=== PATIENT | female | born 1940 | race Caucasian/White ===

== ENCOUNTER 2020-02-08 09:24 | Inpatient (IN) ==
[2020-02-08] MEDS ORDERED: 0.9 % SODIUM CHLORIDE 500 ML IV ONE (09:44)
--- NOTE | 2020-02-08 09:55 | Emergency Department Note ---
Fall HPI General Chief Complaint: Fall Stated Complaint: fall Time Seen by Provider: 02/08/20 09:35 Source: patient Mode of arrival: ambulatory Limitations: no limitations History of Present Illness HPI Narrative: Narrative: With chief complaint of exquisite right hip pain. Patient mentions she was going to bed last night when she "passed out". She is unsure of the actual events but does tell me she got up before she knew it "I was on the ground". She denies preceding dizziness, shortness of breath, or chest pain prior to falling. Once on the ground she noticed the pain to her hip. She was unable to bear weight. She laid on the ground for several moments and then crawled towards the kitchen. During that time she found a pillow and "went back to sleep for a while" on the floor. She is unsure for how long. However, due to the worsening pain she woke her up around 4 AM. She took 1 of her prescribed muscle relaxers without relief. She was then transported into the hospital for evaluation. Upon arrival, patient complains of significant pain to the right hip with movement. Currently no evidence for pain is mild at 2/10. It is localized to the right hip joint. She has no history of osteoporosis. ROS: Denies systemic illness, fever, sweats, chills. Denies headaches, tinnitus, or vision changes. Denies runny nose, sinus congestion, or cough. Denies shortness of breath. Denies palpitations. Denies abdominal pain, nausea, vomiting, or diarrhea. Denies dysuria, hematuria, urinary frequency, or urinary urgency. Denies generalized or focal weakness. Related Data Home Medications Medication Instructions Recorded Confirmed venlafaxine 150 mg PO DAILY 05/18/16 02/08/20 biotin 10,000 mcg capsule 10,000 mcg PO QDAY 08/23/19 02/08/20 vit 1 cap PO QDAY 08/23/19 02/08/20 C,E,zinc,Az-abpeo-4-lutein-zeaxanthin 250 mg-2.5 mg-0.5 mg capsule albuterol sulfate 90 mcg/actuation 1 inh INHALATION TID PRN g 09/13/19 02/08/20 aerosol inhaler ferrous sulfate 325 mg (65 mg 325 mg PO TID tab 09/13/19 02/08/20 iron) tablet lamotrigine 25 mg tablet 50 mg PO QDAY tab 09/13/19 02/08/20 methocarbamol 750 mg tablet 750 mg PO QID PRN tab 09/13/19 02/08/20 mupirocin 2 % topical ointment 1 applic TOPICAL BID 09/13/19 02/08/20 oxybutynin chloride 5 mg 5 mg PO QHS tab 09/13/19 02/08/20 tablet,extended release 24 hr pantoprazole 40 mg tablet,delayed 40 mg PO QDAY 09/13/19 02/08/20 release pramipexole 1 mg tablet 1 mg PO TID 09/13/19 02/08/20 pregabalin 50 mg capsule 50 mg PO BID 09/13/19 02/08/20 quetiapine 400 mg tablet 400 mg PO QPM tab 09/13/19 02/08/20 vitamin B complex 1 tab PO QDAY 09/13/19 02/08/20 Previous Rx's Medication Instructions Recorded ezetimibe 10 mg tablet 10 mg PO DAILY #90 tab 05/07/19 conjugated estrogens 0.625 mg 0.625 mg PO DAILY #90 tab 07/02/19 tablet omeprazole 40 mg capsule,delayed 40 mg PO QDAY #30 cap 08/23/19 release levothyroxine 50 mcg tablet 50 mcg PO QDAY #90 tab 12/18/19 losartan 50 mg tablet See Rx Instructions .ROUTE 01/04/20 .COMPLEX #90 tablet Allergies Allergy/AdvReac Type Severity Reaction Status Date / Time codeine Allergy Unknown Unknown Verified 08/23/19 14:54 ciprofloxacin AdvReac Intermediate Flushing Verified 08/23/19 14:54 aspirin AdvReac Mild Gastrointestinal Verified 08/23/19 14:54 Upset hydrocodone AdvReac Mild Itching Verified 08/23/19 14:54 Sulfa (Sulfonamide AdvReac Mild Headache Verified 08/23/19 14:54 Antibiotics) Review of Systems ROS ROS Narrative: Narrative: All systems ED: reviewed and negative except as stated. PFSH Narrative Patient History Narrative: Narrative: Medical/Surgical/Family History All Active Problems (Updated 02/08/20 @ 12:10 by Rocky Farias PA-C) Closed fracture of right hip (Acute) Counseling for estrogen replacement therapy (Chronic) CTS (carpal tunnel syndrome) (Chronic) Osteoarthritis (Chronic) Osteopenia (Chronic) Orestes esophagus (Chronic ~2012) Right wrist fracture (Chronic ~08/2012) Fracture of toe of left foot (Chronic ~02/2010) History of encephalitis (Chronic) Hiatal hernia (Chronic) Depression (Chronic) Anxiety (Chronic) GERD (gastroesophageal reflux disease) (Chronic) Headache (Chronic) Encounter for Zostavax administration (Chronic 10/24/14) History of tonsillectomy (Chronic) History of hysterectomy (Chronic) Bursitis, calcaneal (Chronic) Hypertension (Chronic) Hyperlipidemia (Chronic) Knee pain (Chronic) Restless leg syndrome (Chronic) Lumbosacral disc herniation (Chronic) Fracture of right hand (Chronic) SOB (shortness of breath) (Chronic) Anemia (Chronic) Peripheral edema (Chronic) Hyponatremia (Chronic) Osteopenia (Chronic) Osteoporosis (Chronic) Encounter for long-term (current) use of other medications (Chronic) Urinary frequency (Chronic) Atrophic vaginitis (Chronic) Bipolar 2 disorder (Chronic) Hypothyroidism (Chronic) Multifocal motor neuropathy (Chronic) Anemia, pernicious (Chronic) Lumbar back pain with radiculopathy affecting lower extremity (Chronic) Cellulitis (Chronic) Acute diarrhea (Chronic) Abscess of skin or subcutaneous tissue (Chronic) Medical History Abscess of skin or subcutaneous tissue (Chronic) Acute diarrhea (Chronic) Anemia (Chronic) Anemia, pernicious (Chronic) Anxiety (Chronic) Atrophic vaginitis (Chronic) Barretts esophagus (Chronic ~2012) Bipolar 2 disorder (Chronic) Bursitis, calcaneal (Chronic) Cellulitis (Chronic) Counseling for estrogen replacement therapy (Chronic) CTS (carpal tunnel syndrome) (Chronic) Dr Smith Depression (Chronic) Encounter for long-term (current) use of other medications (Chronic) Encounter for Zostavax administration (Chronic 10/24/14) Fracture of right hand (Chronic) Fracture of toe of left foot (Chronic ~02/2010) GERD (gastroesophageal reflux disease) (Chronic) Headache (Chronic) Hiatal hernia (Chronic) History of encephalitis (Chronic) age 5 Hyperlipidemia (Chronic) Hypertension (Chronic) Hyponatremia (Chronic) Hypothyroidism (Chronic) Knee pain (Chronic) Lumbar back pain with radiculopathy affecting lower extremity (Chronic) Lumbosacral disc herniation (Chronic) Multifocal motor neuropathy (Chronic) Osteoarthritis (Chronic) Osteopenia (Chronic) Osteopenia (Chronic) Dexa on 08/02 Osteoporosis (Chronic) Peripheral edema (Chronic) Restless leg syndrome (Chronic) Right wrist fracture (Chronic ~08/2012) SOB (shortness of breath) (Chronic) Urinary frequency (Chronic) Surgical History History of back surgery (Chronic) Lumbar with Dr. Islas History of hysterectomy (Chronic) in the due to heavy bleeding History of tonsillectomy (Chronic) childhood Family History Father Cancer HTN (hypertension) Mother HTN (hypertension) Thyroid disorder Arthritis Social History Smoking Status: Never smoker Exam Narrative Narrative: Narrative: General Limitations: no limitations General appearance: other (Well-developed, well-nourished, 79-year-old female patient laying semirecumbent on the emergency room gurney with her left hip in slight flexion. At this time she appears comfortable. She does wince in pain during hip exam.) Head Head: atraumatic and normocephalic Expanded Head Head physical: Absent raccoon eyes and Buchanan's sign Eye Eye: Present normal appearance, PERRL and EOMI; Absent scleral icterus and conjunctival injection ENT ENT: Present normal oropharynx and mucous membranes dry Neck Neck: Present trachea midline; Absent lymphadenopathy and thyromegaly Chest Chest: Present symmetric chest wall rise Respiratory Respiratory: Present normal lung sounds bilaterally; Absent respiratory distress, wheezes, stridor, accessory muscle use and prolonged expiratory phase Cardiovascular Cardiovascular: Present regular rate and normal rhythm; Absent systolic murmur and diastolic murmur Adbominal Abdominal: Present soft; Absent distention, tenderness, guarding, rebound, rigidity, organomegaly and mass Extremities Extremities: Present normal inspection, tenderness (Tenderness to the anterior and lateral aspect of the right hip joint. No crepitus) and other (Equal chip silo tender strength. Equal push/pull with the feet. Sensation grossly intact light touch subtle areas of the upper and lower extremities.); Absent full ROM (Considerable decreased range of motion of the right hip secondary to worsening pain.), normal capillary refill and pedal edema Back Back: Absent tenderness Neurological Neurological: Present alert and oriented X3 Psychiatric Psychiatric: Present normal affect and normal mood Skin Skin: Present warm, dry and normal color Course Course Course Narrative: Patient is shortened and angulated right lower extremity secondary to fall this morning. We are going to order radiographs of the right hip looking for fracture or abnormality. Because she has a vague proceeding "passing out" we will order some screening laboratory studies. She was on the floor for an extended period of time so we will order a CK looking for rhabdomyolysis. Patient was provided normal saline 500 mL as a bolus. Although she is not in a lot of pain with her leg motionless. We are going to get radiographs of the affected hip so we will premedicate her with morphine 2mg prior to going to radiology. Reevaluation(s) Reevaluation #1: I reviewed the patient's radiographs show a subcapital fracture to the right hip. Knowing this, I reached out to the on-call orthopedic surgeon (Dr. Birmingham) and discussed the case with him. At the time Dr. Birmingham mentioned this is going to need surgical correction is happy to help the patient. He did request that the patient be admitted to the hospitalist service and that he would consult in as the orthopedic surgeon. Time: 10:46 Reevaluation #2: I reviewed the patient's other diagnostics show the following: CBC WBC 10.8, RBC 3.37, hemoglobin 10.5, 32.3, platelets 416. CMP within normal limits. Troponin less than 0.01. After reviewing all the data I reached out to our hospitalist (Dr. Garner) and discussed admissions with him. At this time Dr. Garner has consented to admit the patient to our facility with the understanding that the orthopedic surgeon will consult in to help her repair the hip fracture. I went in and explained this to the patient who verbalized understanding. At this time all further treatment decisions, modalities, and ultimate patient disposition will be carried out by the hospitalist with the orthopedic surgeon in consultation. Time: 12:08 Vital Signs Vital signs: Vital Signs Temperature 98.1 F 02/08/20 09:27 Pulse Rate 83 02/08/20 09:27 Respiratory Rate 16 02/08/20 09:27 Blood Pressure 164/80 02/08/20 09:27 Pulse Oximetry (%) 95 02/08/20 09:27 Temperature 98.1 F 02/08/20 12:15 Pulse Rate 81 02/08/20 12:15 Respiratory Rate 16 02/08/20 12:15 Blood Pressure 170/82 02/08/20 12:15 Pulse Oximetry (%) 93 02/08/20 12:15 MDM MDM Narrative Medical decision making narrative: Narrative: Lab Data Result diagrams: 02/08/20 10:00 02/08/20 10:00 Labs: Lab Results 02/08/20 02/08/20 02/08/20 Range/Units 09:48 10:00 10:00 WBC 10.8 (4.50-11.00) K/mcL RBC 3.37 L (3.59-5.38) M/mcL Hgb 10.5 L (11.2-15.7) g/dL Hct 32.3 L (34.1-44.9) % MCV 95.8 (80.0-100.0) fL MCH 31.2 (26.0-34.0) pg MCHC 32.5 (31.0-36.0) g/dL RDW 20.4 H (11.5-14.5) % Plt Count 416 (140-440) K/mcL MPV 11.3 H (7.4-10.4) fL Gran % 85.2 H (38.0-78.0) % Lymph % (Auto) 7.8 L (15.5-49.0) % O'Brien % (Auto) 5.1 (1.0-12.0) % Eos % (Auto) 1.6 (0.0-7.0) % Baso % (Auto) 0.3 (0.0-2.0) % Gran # 9.24 H (1.80-8.00) K/mcL Lymph # (Auto) 0.84 L (1.50-4.80) K/mcL O'Brien # (Auto) 0.55 (0.10-0.90) K/mcL Eos # (Auto) 0.17 (0.00-0.70) K/mcL Baso # (Auto) 0.03 (0.00-0.30) K/mcL Sodium 135 (133-145) mmol/L Potassium 3.9 (3.3-5.1) mmol/L Chloride 98 (96-108) mmol/L Carbon Dioxide 23 (22-30) mmol/L Anion Gap 14.0 (8-16) BUN 12 (8-23) mg/dl Creatinine 0.8 (0.6-1.1) mg/dl GFR Calculation 71 Glucose 96 (70-105) mg/dL Calcium 9.1 (8.6-10.4) mg/dl Total Bilirubin 0.4 (0.0-1.0) mg/dL AST 23 (0-37) U/l ALT 15 (0-40) U/l Alkaline Phosphatase 91 (39-117) U/L Total Creatine Kinase (24-170) IU/L Troponin T < 0.01 (0-0.03) ng/ml Total Protein 7.3 (5.9-8.4) gm/dL Albumin 3.8 (3.2-5.2) gm/dL Globulin 3.5 (2.2-3.7) gm/dL Albumin/Globulin Ratio 1.1 (1.0-2.3) COVID-19 PCR (NEGATIVE) 02/08/20 02/08/20 Range/Units 10:00 11:20 WBC (4.50-11.00) K/mcL RBC (3.59-5.38) M/mcL Hgb (11.2-15.7) g/dL Hct (34.1-44.9) % MCV (80.0-100.0) fL MCH (26.0-34.0) pg MCHC (31.0-36.0) g/dL RDW (11.5-14.5) % Plt Count (140-440) K/mcL MPV (7.4-10.4) fL Gran % (38.0-78.0) % Lymph % (Auto) (15.5-49.0) % O'Brien % (Auto) (1.0-12.0) % Eos % (Auto) (0.0-7.0) % Baso % (Auto) (0.0-2.0) % Gran # (1.80-8.00) K/mcL Lymph # (Auto) (1.50-4.80) K/mcL O'Brien # (Auto) (0.10-0.90) K/mcL Eos # (Auto) (0.00-0.70) K/mcL Baso # (Auto) (0.00-0.30) K/mcL Sodium (133-145) mmol/L Potassium (3.3-5.1) mmol/L Chloride (96-108) mmol/L Carbon Dioxide (22-30) mmol/L Anion Gap (8-16) BUN (8-23) mg/dl Creatinine (0.6-1.1) mg/dl GFR Calculation Glucose (70-105) mg/dL Calcium (8.6-10.4) mg/dl Total Bilirubin (0.0-1.0) mg/dL AST (0-37) U/l ALT (0-40) U/l Alkaline Phosphatase (39-117) U/L Total Creatine Kinase 61 (24-170) IU/L Troponin T (0-0.03) ng/ml Total Protein (5.9-8.4) gm/dL Albumin (3.2-5.2) gm/dL Globulin (2.2-3.7) gm/dL Albumin/Globulin Ratio (1.0-2.3) COVID-19 PCR Covid-19 negative (NEGATIVE) Radiology Data Radiology results reviewed: Yes I reviewed the patient's radiology results. Radiology results narrative: Ordering Physician: Stas Solis D.O. Date of Service: 02/08/20 Procedure(s): XR chest 1V Accession Number(s): [id number] INDICATION: hip fracture pre surgery TECHNIQUE: AP portable semiupright chest x-ray COMPARISON: Previous chest x-rays dated 02/11/2016, 02/20/2013 FINDINGS: Lungs:Lungs are negative. No focal pulmonary parenchymal infiltrate or mass Heart, vascular:No significant cardiomegaly. Pulmonary vascularity is normal. No pulmonary edema or pulmonary congestion Mediastinum, tory:No mediastinal widening. No hilar mass. There is a moderate to large hiatal hernia Pleura:No pleural fluid. No pleural-based mass or calcification Skeletal:Negative. IMPRESSION: 1. Negative AP chest x-ray 2. Moderate to large hiatal hernia 3. No significant interval change. Ordering Physician: Rocky Farias PA-C Date of Service: 02/08/20 Procedure(s): XR hip RT comp 2VW Accession Number(s): [id number] INDICATION: pain, leg rotation, shortening, fall last night. TECHNIQUE: AP pelvis. AP and crosstable lateral right hip COMPARISON: None. FINDINGS: Right subcapital hip fracture. There is impaction and mild varus angulation. Negative pelvis. No fracture. Sacrum is negative. Left hip is negative. Patient has undergone previous lower lumbar posterior spinal fusion IMPRESSION: Right subcapital hip fracture Interpreted and Authenticated by: Edwardo Murillo 02/08/20 EKG Data EKG #1: EKG results narrative: Twelve-lead EKG showing normal sinus rhythm at a rate of [address] segment changes. No ectopy. Normal intervals. Discharge Plan Patient/Caregiver Discharge Instructions Pt seen by [employer] [facility]/PA only: Yes Clinical Impression: Anemia, pernicious Closed fracture of right hip Qualifiers: Encounter type: initial encounter Qualified Code(s): S72.001A - Fracture of unspecified part of neck of right femur, initial encounter for closed fracture Osteoporosis Qualifiers: Osteoporosis type: unspecified Presence of current pathological fracture: unspecified Qualified Code(s): M81.0 - Age-related osteoporosis without current pathological fracture Patient Disposition: Xfer As Inpt ([facility]) Condition: Good Discharge Date/Time: 02/08/20 12:23
[2020-02-08] MEDS ORDERED: morphine 2 MG/ML VIAL ONE (10:11)
[2020-02-08] MEDS: morphine 2 MG/ML VIAL IV PRN ×2 (10:16→11:30)
--- NOTE | 2020-02-08 10:27 | XRay Report ---
INDICATION: hip fracture pre surgery TECHNIQUE: AP portable semiupright chest x-ray COMPARISON: Previous chest x-rays dated 02/11/2016, 02/20/2013 FINDINGS: Lungs:Lungs are negative. No focal pulmonary parenchymal infiltrate or mass Heart, vascular:No significant cardiomegaly. Pulmonary vascularity is normal. No pulmonary edema or pulmonary congestion Mediastinum, tory:No mediastinal widening. No hilar mass. There is a moderate to large hiatal hernia Pleura:No pleural fluid. No pleural-based mass or calcification Skeletal:Negative. IMPRESSION: 1. Negative AP chest x-ray 2. Moderate to large hiatal hernia 3. No significant interval change Interpreted and Authenticated by: Edwardo Murillo 02/08/20
--- NOTE | 2020-02-08 10:30 | XRay Report ---
INDICATION: pain, leg rotation, shortening, fall last night. TECHNIQUE: AP pelvis. AP and crosstable lateral right hip COMPARISON: None. FINDINGS: Right subcapital hip fracture. There is impaction and mild varus angulation. Negative pelvis. No fracture. Sacrum is negative. Left hip is negative. Patient has undergone previous lower lumbar posterior spinal fusion IMPRESSION: Right subcapital hip fracture Interpreted and Authenticated by: Edwardo Murillo 02/08/20
[2020-02-08 11:41] LABS: ALT/SGPT 15 U/l (0-40); AST/SGOT 23 U/l (0-37); Albumin 3.8 gm/dL (3.2-5.2); Albumin/Globulin Ratio 1.1 (1.0-2.3); Alkaline Phosphatase 91 U/L (39-117); Bilirubin,Total 0.4 mg/dL (0.0-1.0); Blood Urea Nitrogen 12 mg/dl (8-23); Calcium 9.1 mg/dl (8.6-10.4); Carbon Dioxide 23 mmol/L (22-30); Chloride 98 mmol/L (96-108); Creatine Kinase 61 IU/L (24-170); Globulin 3.5 gm/dL (2.2-3.7); Glomerular Filtration Rate 71; Glucose 96 mg/dL (70-105)
[2020-02-08 12:03] LABS: Basophils # (Auto) 0.03 K/mcL (0.00-0.30); Basophils % (Auto) 0.3 % (0.0-2.0); Eosinophils # (Auto) 0.17 K/mcL (0.00-0.70); Eosinophils % (Auto) 1.6 % (0.0-7.0); Granulocytes % (Auto) 85.2 % (38.0-78.0); Hematocrit 32.3 % (34.1-44.9); Hemoglobin 10.5 g/dL (11.2-15.7); Lymphocytes # (Auto) 0.84 K/mcL (1.50-4.80); Lymphocytes % (Auto) 7.8 % (15.5-49.0); Mean Cell Volume 95.8 fL (80.0-100.0); Mean Corpuscular HGB Conc 32.5 g/dL (31.0-36.0); Mean Platelet Volume 11.3 fL (7.4-10.4); Monocytes # (Auto) 0.55 K/mcL (0.10-0.90); Monocytes % (Auto) 5.1 % (1.0-12.0); Platelet Count 416 K/mcL (140-440); RBC 3.37 M/mcL (3.59-5.38); Red Cell Distribution Width 20.4 % (11.5-14.5); WBC 10.8 K/mcL (4.50-11.00)
--- NOTE | 2020-02-08 12:19 | Consultation ---
DATE OF CONSULTATION: 02/08/2020 IDENTIFICATION: The patient is a 79-year-old female. CHIEF COMPLAINT: Right femoral neck fracture. HISTORY: The patient had a non-syncopal fall yesterday evening. She had immediate pain but refused to be taken to the emergency room. She presents today with right hip pain, was evaluated in the emergency room, and radiographs have suggested a right femoral neck fracture. PAST MEDICAL HISTORY: Significant for mental health. She also has a history of hypertension, hypothyroidism, mild asthma. PAST SURGICAL HISTORY: Previous lumbar fusion. REVIEW OF SYSTEMS: Unremarkable. She has been in a normal, stable, good state of health. Denies recent fevers, chills, shortness of breath. Denies chest pain, denies palpitations. The balance of a 10-point review of systems is negative. MEDICATIONS: 1. Venlafaxine. 2. Biotin vitamin. 3. Albuterol inhaler. 4. Iron. 5. Lamotrigine. 6. Robaxin. 7. Mupirocin. 8. Oxybutynin. 9. Pantoprazole. 10. Lyrica. 11. Quetiapine. ALLERGIES: 1. CODEINE. 2. CIPROFLOXACIN. 3. ASPIRIN. 4. HYDROCODONE. 5. SULFA MEDICATIONS. PHYSICAL EXAMINATION: GENERAL: She is awake and alert. She is resting actually quite comfortably. HEAD: Normocephalic, atraumatic. EYES: PERRLA. Conjunctivae clear. ENT: Within normal limits. NECK: Supple without pain on range of motion. HEART: Regular. LUNGS: Clear. ABDOMEN: Benign. LOWER EXTREMITIES: Her right lower extremity is shortened. She is without neurovascular deficit. I did not really pursue a range of motion as any motion causes significant discomfort. IMAGING: Radiographs demonstrating femoral neck fracture. IMPRESSION: Right femoral neck fracture. PLAN: We will proceed with a hemiarthroplasty. The surgical risks, complications, and limitations have been discussed. GDD:alissa Job ID: [id number] Doc ID: [id number] Steven Birmingham MD
--- NOTE | 2020-02-08 12:24 | Internal Med History&Physical ---
HPI History of Present Illness Patient information: Note initiated : 02/08/20 at 12:20 pm Service Date, if different from initiated Date: [] Patient: Jazmin Hooker a 79 y/o F admitted on for Fall. Chief Complaint: [] History of present illness: Ms. Hooker is a 79 year old F Presents the ED with right hip pain. Patient was in her normal state of health yesterday. However yesterday evening she was sitting at the table doing jewelry for least a couple hours when she got up to go to the kitchen to get some coffee and passed out. She denied any prodromal symptoms of chest pain nausea diaphoresis warmth. She hit the ground and then she crawled to the bedroom and laid on the floor until she woke up her at 4 because of the pain. In the ED she evaluated found of a right hip fracture. Dr. Birmingham was contacted. Patient's laboratory essentially unremarkable except for some chronic anemia. EKG sinus rhythm. Chest x-ray unremarkable. Do not have the results of the urinalysis. She denies any recent illness or sick contacts. Review of Systems: Pertinent positives above. Denies headache/fever/chills/nausea/vomiting/chest or abdominal pain/cough/dyspnea/diarrhea. Remaining 10 point review of system reviewed negative PFSH PFSH All Active Problems (Updated 02/08/20 @ 12:10 by Rocky Farias PA-C) Closed fracture of right hip (Acute) Counseling for estrogen replacement therapy (Chronic) CTS (carpal tunnel syndrome) (Chronic) Osteoarthritis (Chronic) Osteopenia (Chronic) Barretts esophagus (Chronic ~2012) Right wrist fracture (Chronic ~08/2012) Fracture of toe of left foot (Chronic ~02/2010) History of encephalitis (Chronic) Hiatal hernia (Chronic) Depression (Chronic) Anxiety (Chronic) GERD (gastroesophageal reflux disease) (Chronic) Headache (Chronic) Encounter for Zostavax administration (Chronic 10/24/14) History of tonsillectomy (Chronic) History of hysterectomy (Chronic) Bursitis, calcaneal (Chronic) Hypertension (Chronic) Hyperlipidemia (Chronic) Knee pain (Chronic) Restless leg syndrome (Chronic) Lumbosacral disc herniation (Chronic) Fracture of right hand (Chronic) SOB (shortness of breath) (Chronic) Anemia (Chronic) Peripheral edema (Chronic) Hyponatremia (Chronic) Osteopenia (Chronic) Osteoporosis (Chronic) Encounter for long-term (current) use of other medications (Chronic) Urinary frequency (Chronic) Atrophic vaginitis (Chronic) Bipolar 2 disorder (Chronic) Hypothyroidism (Chronic) Multifocal motor neuropathy (Chronic) Anemia, pernicious (Chronic) Lumbar back pain with radiculopathy affecting lower extremity (Chronic) Cellulitis (Chronic) Acute diarrhea (Chronic) Abscess of skin or subcutaneous tissue (Chronic) Medical History Abscess of skin or subcutaneous tissue (Chronic) Acute diarrhea (Chronic) Anemia (Chronic) Anemia, pernicious (Chronic) Anxiety (Chronic) Atrophic vaginitis (Chronic) Barretts esophagus (Chronic ~2012) Bipolar 2 disorder (Chronic) Bursitis, calcaneal (Chronic) Cellulitis (Chronic) Counseling for estrogen replacement therapy (Chronic) CTS (carpal tunnel syndrome) (Chronic) Dr Smith Depression (Chronic) Encounter for long-term (current) use of other medications (Chronic) Encounter for Zostavax administration (Chronic 10/24/14) Fracture of right hand (Chronic) Fracture of toe of left foot (Chronic ~02/2010) GERD (gastroesophageal reflux disease) (Chronic) Headache (Chronic) Hiatal hernia (Chronic) History of encephalitis (Chronic) age 5 Hyperlipidemia (Chronic) Hypertension (Chronic) Hyponatremia (Chronic) Hypothyroidism (Chronic) Knee pain (Chronic) Lumbar back pain with radiculopathy affecting lower extremity (Chronic) Lumbosacral disc herniation (Chronic) Multifocal motor neuropathy (Chronic) Osteoarthritis (Chronic) Osteopenia (Chronic) Osteopenia (Chronic) Dexa on 08/02 Osteoporosis (Chronic) Peripheral edema (Chronic) Restless leg syndrome (Chronic) Right wrist fracture (Chronic ~08/2012) SOB (shortness of breath) (Chronic) Urinary frequency (Chronic) Surgical History History of back surgery (Chronic) Lumbar with Dr. 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 other: 1st husb of Suicide after 27yrs of marriage, was exp to HIV & HepC smoking status: Never smoker MEDS/ALLERGIES Home Medications and Allergies Home Medications Medication Instructions Recorded Confirmed Type venlafaxine 150 mg PO DAILY 05/18/16 02/08/20 History ezetimibe 10 mg tablet 10 mg PO DAILY #90 tab 05/07/19 02/08/20 Rx conjugated estrogens 0.625 mg 0.625 mg PO DAILY #90 tab 07/02/19 02/08/20 Rx tablet biotin 10,000 mcg capsule 10,000 mcg PO QDAY 08/23/19 02/08/20 History omeprazole 40 mg capsule,delayed 40 mg PO QDAY #30 cap 08/23/19 02/08/20 Rx release vit 1 cap PO QDAY 08/23/19 02/08/20 History C,E,zinc,Fc-ywixn-3-lutein-zeaxanthin 250 mg-2.5 mg-0.5 mg capsule albuterol sulfate 90 mcg/actuation 1 inh INHALATION TID PRN g 09/13/19 02/08/20 History aerosol inhaler ferrous sulfate 325 mg (65 mg 325 mg PO TID tab 09/13/19 02/08/20 History iron) tablet lamotrigine 25 mg tablet 50 mg PO QDAY tab 09/13/19 02/08/20 History methocarbamol 750 mg tablet 750 mg PO QID PRN tab 09/13/19 02/08/20 History mupirocin 2 % topical ointment 1 applic TOPICAL BID 09/13/19 02/08/20 History oxybutynin chloride 5 mg 5 mg PO QHS tab 09/13/19 02/08/20 History tablet,extended release 24 hr pantoprazole 40 mg tablet,delayed 40 mg PO QDAY 09/13/19 02/08/20 History release pramipexole 1 mg tablet 1 mg PO TID 09/13/19 02/08/20 History pregabalin 50 mg capsule 50 mg PO BID 09/13/19 02/08/20 History quetiapine 400 mg tablet 400 mg PO QPM tab 09/13/19 02/08/20 History vitamin B complex 1 tab PO QDAY 09/13/19 02/08/20 History levothyroxine 50 mcg tablet 50 mcg PO QDAY #90 tab 12/18/19 02/08/20 Rx losartan 50 mg tablet See Rx Instructions .ROUTE 01/04/20 02/08/20 Rx .COMPLEX #90 tablet Allergies Allergy/AdvReac Type Severity Reaction Status Date / Time codeine Allergy Unknown Unknown Verified 08/23/19 14:54 ciprofloxacin AdvReac Intermediate Flushing Verified 08/23/19 14:54 aspirin AdvReac Mild Gastrointestinal Verified 08/23/19 14:54 Upset hydrocodone AdvReac Mild Itching Verified 08/23/19 14:54 Sulfa (Sulfonamide AdvReac Mild Headache Verified 08/23/19 14:54 Antibiotics) EXAM Constitutional Vitals: Temp Pulse Resp BP Pulse Ox 98.1 F 81 16 170/82 93 02/08/20 12:15 02/08/20 12:15 02/08/20 12:15 02/08/20 12:15 02/08/20 12:15 Exam: General: Alert, Awake, No acute Distress Eyes/N/T: EOMI, Head/Neck: neck supple, CV: RRR, No murmurs, Pulm: Clear b/l, no wheezing/rhonchi/rales Abd: soft, nontender, +BS x4 Ext: no clubbing/cyanosis/edema Neuro: Alert, no focal deficits, moves all extremities, Skin: warm/dry DATA Data Completed and Pending Labs: Labs from last 24 hours 02/08/20 02/08/20 02/08/20 11:20 10:00 10:00 WBC RBC Hgb Hct MCV MCH MCHC RDW Plt Count MPV Gran % Lymph % (Auto) [place] % (Auto) Eos % (Auto) Baso % (Auto) Gran # Lymph # (Auto) [place] # (Auto) Eos # (Auto) Baso # (Auto) Sodium 135 Potassium 3.9 Chloride 98 Carbon Dioxide 23 Anion Gap 14.0 BUN 12 Creatinine 0.8 GFR Calculation 71 Glucose 96 Calcium 9.1 Total Bilirubin 0.4 AST 23 ALT 15 Alkaline Phosphatase 91 Total Creatine Kinase 61 Troponin T Total Protein 7.3 Albumin 3.8 Globulin 3.5 Albumin/Globulin Ratio 1.1 COVID-19 PCR Pending 02/08/20 02/08/20 10:00 09:48 WBC 10.8 RBC 3.37 L Hgb 10.5 L Hct 32.3 L MCV 95.8 MCH 31.2 MCHC 32.5 RDW 20.4 H Plt Count 416 MPV 11.3 H Gran % 85.2 H Lymph % (Auto) 7.8 L [place] % (Auto) 5.1 Eos % (Auto) 1.6 Baso % (Auto) 0.3 Gran # 9.24 H Lymph # (Auto) 0.84 L [place] # (Auto) 0.55 Eos # (Auto) 0.17 Baso # (Auto) 0.03 Sodium Potassium Chloride Carbon Dioxide Anion Gap BUN Creatinine GFR Calculation Glucose Calcium Total Bilirubin AST ALT Alkaline Phosphatase Total Creatine Kinase Troponin T < 0.01 Total Protein Albumin Globulin Albumin/Globulin Ratio COVID-19 PCR A/P Narrative A/P Narrative: A: *Right hip fracture: *Syncope: Sounds like a vasovagal episode vs orthostatic hypotension -EKG and Trop unremarkable *Hypothyroidism: *HTN/HLD: *GERD: *Anemia, chronic: *Depression/anxiety/bipolar: * P: -Dr Birmingham for orthopedic surgery -pain control -pt/ot -UA -cont home psych meds -cont home ARB -CM for placement -ppx: scd, post-op per ortho Time Spent With Patient Time: Total time spent is greater than 50% in coordination of care (as documented) at patient's floor/unit and/or counseling patient:
[2020-02-08] MEDS: LACTATED RINGERS 1,000 ML IV SCH ×2 (12:38→14:51)
[2020-02-08] MEDS ORDERED: TRANEXAMIC ACID 1,000 MG/10 ML VIAL IV ONE (12:45)
[2020-02-08] MEDS ORDERED: DEXAMETHASONE 10 MG/ML VIAL ONE (12:45)
[2020-02-08] MEDS ORDERED: fentaNYL 100 MCG/2 ML VIAL IV ONE (12:45)
[2020-02-08] MEDS ORDERED: ONDANSETRON 4 MG/2 ML VIAL ONE (12:45)
[2020-02-08] MEDS ORDERED: KETAMINE 100 MG/ML ML ONE (12:45)
[2020-02-08] MEDS ORDERED: LIDOCAINE HCL/PF 100 MG/5 ML SYRINGE IV ONE (12:45)
[2020-02-08] MEDS ORDERED: PROPOFOL 200 MG/20 ML VIAL IV ONE (12:45)
[2020-02-08] MEDS ORDERED: ACETAMINOPHEN 1,000 MG/100 ML BOTTLE IV ONE (13:41)
[2020-02-08] MEDS ORDERED: ONDANSETRON 4 MG/2 ML VIAL IV PRN ×2 (13:41→15:24)
[2020-02-08] MEDS ORDERED: GENTAMICIN SULFATE 800 MG/20 ML VIAL IR ONE (13:41)
[2020-02-08] MEDS ORDERED: FLUMAZENIL 0.1 MG/ML ML IV PRN (13:41)
[2020-02-08] MEDS ORDERED: diphenhydrAMINE 50 MG/ML VIAL IV PRN (13:41)
[2020-02-08] MEDS ORDERED: IPRATROPIUM/ALBUTEROL 3 ML AMPUL.NEB NEB PRN ×2 (13:41→15:24)
[2020-02-08] MEDS ORDERED: METOPROLOL TARTRATE 5 MG/5 ML VIAL IV PRN (13:41)
[2020-02-08] MEDS ORDERED: PROMETHAZINE 25 MG/ML VIAL IV PRN (13:41)
[2020-02-08] MEDS ORDERED: ePHEDrine 50 MG/ML AMPUL IV PRN (13:41)
[2020-02-08] MEDS ORDERED: METHOCARBAMOL 1,000 MG/10 ML VIAL IV PRN (13:41)
[2020-02-08] MEDS ORDERED: NALOXONE HCL 0.4 MG/ML VIAL IV PRN (13:41)
[2020-02-08] MEDS ORDERED: ATROPINE SULFATE 0.4 MG/ML VIAL IV PRN (13:41)
[2020-02-08] MEDS ORDERED: MEPERIDINE 25 MG/ML SYRINGE IV PRN (13:41)
[2020-02-08] MEDS ORDERED: MAGNESIUM HYDROXIDE 30 ML ORAL.SUSP PO PRN (13:52)
[2020-02-08] MEDS ORDERED: FLEETS ADULT ENEMA PR PRN (13:52)
[2020-02-08] MEDS ORDERED: BISACODYL 10 MG SUPP.RECT PR PRN (13:52)
[2020-02-08] MEDS ORDERED: POLYETHYLENE GLYCOL 3350 17 GM PACKET PO PRN ×2 (13:52→15:24)
[2020-02-08] MEDS ORDERED: BENZOCAINE/MENTHOL 1 LOZENGE PO PRN (13:52)
--- NOTE | 2020-02-08 13:52 | Brief Operative Note ---
Brief Operative Note Date of procedure: 02/08/20 Surgeon: Steven Birmingham Operative Note Operative Note: R hip fracture hemiarthroplasy Kimberley/Chapin ebsharon 200 complications none
[2020-02-08] MEDS: fentaNYL 100 MCG/2 ML VIAL IV PRN ×2 (14:19→14:29)
--- NOTE | 2020-02-08 14:34 | Operative Note ---
DATE OF OPERATION: 02/08/2020 PREOPERATIVE DIAGNOSIS: Right hip fracture/subcapital femoral neck. POSTOPERATIVE DIAGNOSIS: Right hip fracture/subcapital femoral neck. OPERATION PROPOSED: Right hip hemiarthroplasty. OPERATION PERFORMED: Right hip hemiarthroplasty. OPERATING SURGEON: Steven Birmingham M.D. WASHER OPERATOR: Davina Samson PA-C. The PA's assistance was required for the safe and efficient completion of the entire case. This provider's expertise and technical skill were required throughout the case. The PA assisted with preoperative coordination, intraoperative retraction, wound closure, dressing and splint application, as well as postoperative documentation and care coordination. INDICATIONS: This is an elderly lady with a displaced transcervical, subcapital femoral neck fracture. It is significantly displaced. We have elected to proceed with a hemiarthroplasty. OPERATION IN DETAIL: Informed consent was obtained. The patient was taken to the operating room where she was provided with appropriate anesthetic and prophylactic antibiotics. She was carefully positioned. Her hip was prepped sterilely. A standard posterior approach to the hip was performed. I dissected through the iliotibial band, cut and released the short external rotators. The hip capsule was cut and T'd. I then performed a femoral neck cut, removed this napkin ring of bone beneath the fracture. The femoral head was removed and sized. We then sequentially reamed and broached the canal. A box restrictor was placed. The canal was prepped. I pressurized methacrylate into the canal. I held in place a size 5 Jerome stem from [employer]. The methacrylate was allowed to cure. I then reduced into place a neutral head and neck, paired with a 46 head ball. This was very stable. The hip capsule was repaired. I closed the IT band with a #1 Vicryl with 2-0 inverted deep dermal and lalita. The procedure was the tolerated well. No complications. Estimated blood loss was 200 mL. GDD:alissa Job ID: [id number] Doc ID: [id number] Steven Birmingham MD
--- NOTE | 2020-02-08 15:18 | XRay Report ---
INDICATION: post matt TECHNIQUE: AP pelvis. AP and crosstable lateral right hip COMPARISON: Preoperative evaluation dated 02/08/2020 FINDINGS: Status post right hip hemiarthroplasty. Alignment is anatomic. Pelvis and left hip are negative. Patient has undergone previous lower lumbar posterior spinal fusion IMPRESSION: Status post right hip hemiarthroplasty Interpreted and Authenticated by: Edwardo Murillo 02/08/20
[2020-02-08] MEDS ORDERED: ACETAMINOPHEN 325 MG TABLET PO PRN (15:24)
[2020-02-08] MEDS ORDERED: morphine 4 MG/ML VIAL IV PRN (15:24)
[2020-02-08] MEDS ORDERED: POTASSIUM CHLORIDE 40 MEQ in DEXTROSE 5% IN WATER 500 ML IV PRN (15:24)
[2020-02-08] MEDS ORDERED: HYDROcodone/APAP 5/325MG TABLET PO PRN (15:24)
[2020-02-08] MEDS ORDERED: MAGNESIUM SULFATE 2 GM/50 ML BAG IV PRN (15:24)
[2020-02-08] MEDS ORDERED: POTASSIUM CHLORIDE 20 MEQ TABLET PO PRN ×2 (15:24)
[2020-02-08] MEDS ORDERED: SENNOSIDES 1 TABLET PO PRN (15:24)
[2020-02-08] MEDS ORDERED: PRAMIPEXOLE 1 MG TABLET PO SCH (15:24)
[2020-02-08] MEDS: PRAMIPEXOLE 1 MG TABLET PO SCH ×3 (15:53→20:42)
[2020-02-08] MEDS: 0.9 % SODIUM CHLORIDE 10 ML SYRINGE IV SCH ×2 (15:53→23:36)
[2020-02-08] MEDS ORDERED: ENALAPRILAT 1.25 MG/ML VIAL IV PRN (17:46)
[2020-02-08 20:00] LABS: Appearance,Urine CLEAR; Bilirubin,Urine NEG (NEG); Color,Urine YELLOW; Culture Indicated,Urine NO; Glucose,Urine (UA) NEGATIVE (NEG); Ketones,Urine NEG (NEG); Leukocyte Esterase,Urine NEG /uL (NEG); Nitrate,Urine NEG (NEG); Protein,Urine NEG (NEG); Specific Gravity,Urine 1.026 (1.000-1.035); Urine Blood NEG mg/dL (<0.03); Urobilinogen,Urine NEG (NEG)
[2020-02-08] MEDS: ceFAZolin 1 GM VIAL IV SCH (20:40)
[2020-02-08] MEDS: LOSARTAN 50 MG TABLET PO SCH (20:40)
[2020-02-08] MEDS: OXYBUTYNIN CHLORIDE 5 MG TAB.XL.24H PO SCH (20:41)
[2020-02-08] MEDS: QUEtiapine 100 MG TABLET PO SCH (20:41)
[2020-02-08] MEDS: SENNOSIDES 1 TABLET PO SCH (20:41)
[2020-02-08] MEDS: HYDROCODONE/APAP 7.5/325MG TABLET PO PRN (20:41)
[2020-02-08] MEDS: DOCUSATE SODIUM 100 MG CAPSULE PO SCH (20:42)
[2020-02-08] MEDS: METHOCARBAMOL 750 MG TABLET PO PRN (20:42)
[2020-02-08] MEDS ORDERED: PREGABALIN 25 MG CAPSULE PO SCH (21:00)
[2020-02-08] MEDS ORDERED: DOCUSATE SODIUM 100 MG CAPSULE PO SCH (21:00)
[2020-02-09] MEDS: 0.9 % SODIUM CHLORIDE 10 ML SYRINGE IV SCH ×3 (05:45→23:32)
[2020-02-09] MEDS: ceFAZolin 1 GM VIAL IV SCH (05:45)
[2020-02-09] MEDS: LEVOTHYROXINE 50 MCG TABLET PO SCH (07:10)
[2020-02-09] MEDS ORDERED: PANTOPRAZOLE 40 MG TABLET PO SCH (07:30)
[2020-02-09 07:35] LABS: Hematocrit 25.6 % (34.1-44.9); Hemoglobin 8.4 g/dL (11.2-15.7)
[2020-02-09 07:44] LABS: ALT/SGPT 11 U/l (0-40); AST/SGOT 23 U/l (0-37); Albumin 3.1 gm/dL (3.2-5.2); Albumin/Globulin Ratio 1.1 (1.0-2.3); Alkaline Phosphatase 71 U/L (39-117); Bilirubin,Direct < 0.2 mg/dL (0.0-0.3); Bilirubin,Total 0.3 mg/dL (0.0-1.0); Blood Urea Nitrogen 15 mg/dl (8-23); Calcium 8.4 mg/dl (8.6-10.4); Carbon Dioxide 22 mmol/L (22-30); Chloride 101 mmol/L (96-108); Globulin 2.9 gm/dL (2.2-3.7); Glomerular Filtration Rate 71; Glucose 118 mg/dL (70-105); Lactate Dehydrogenase 254 U/L (94-250); Triglycerides 79 mg/dl (<150); Uric Acid 4.7 mg/dL (2.5-8.0)
--- NOTE | 2020-02-09 08:01 | Internal Med Progress Note ---
SUBJECTIVE Subjective Patient information: Note initiated : 02/09/20 at 7:58 am Service Date, if different from initiated Date: [] Patient: Jazmin Hooker a 79 y/o F admitted on 02/08/20 for Fall. Chief Complaint: [] Interval history: History of present illness: Ms. Hooker is a 79 year old F Presents the ED with right hip pain. Patient was in her normal state of health yesterday. However yesterday evening she was sitting at the table doing jewelry for least a couple hours when she got up to go to the kitchen to get some coffee and passed out. She denied any prodromal symptoms of chest pain nausea diaphoresis warmth. She hit the ground and then she crawled to the bedroom and laid on the floor until she woke up her at 4 because of the pain. In the ED she evaluated found of a right hip fracture. Dr. Birmingham was contacted. Patient's laboratory essentially unremarkable except for some chronic anemia. EKG sinus rhythm. Chest x-ray unremarkable. Do not have the results of the urinalysis. She denies any recent illness or sick contacts. 02/08 Doing well postop. No new complaints or overnight events. Review of Systems: denies headache/fever/chills/nausea/vomiting/chest or abdominal pain/cough/dyspnea/diarrhea. Otherwise see above. Constitutional Vitals: Vital Signs Temp Pulse Resp BP Pulse Ox 98.3 F 89 16 105/57 94 02/09/20 07:09 02/09/20 07:09 02/09/20 07:09 02/09/20 07:09 02/09/20 07:09 Period Temp Pulse Resp BP Sys/Henning Pulse Ox Last 24 Hr 97.3 F-99.3 F 64-96 10-19 93-194/57-138 88-100 Intake and Output 02/08/20 02/09/20 02/09/20 21:59 05:59 13:59 Intake Total 1444 Output Total 850 550 Balance 594 -550 Weight 66.905 kg Intake & Output: Intake & Output 02/08/20 02/09/20 02/09/20 21:59 05:59 13:59 Intake Total 1444 Output Total 850 550 Balance 594 -550 Weight 66.905 kg Intake: IV 44 Lactated Ringers 1,000 ml @ 20 44 mls/hr IV .Q24H [facility] Rx#: [id number] IV - Manual Only 1400 Output: Urine Catheter Amount 200 Void Amount 400 550 Estimated Blood Loss 250 Other: Urine Appearance Clear Clear Bunch Clear Clear Urine Color Pale Bright Yellow Bunch Pale Pale Urine Odor Normal Exam: General: Alert, Awake, No acute Distress Eyes/N/T: EOMI, Head/Neck: neck supple, CV: RRR, No murmurs, Pulm: Clear b/l, no wheezing/rhonchi/rales Abd: soft, nontender, +BS x4 Ext: no clubbing/cyanosis/edema Neuro: Alert, no focal deficits, moves all extremities, Skin: warm/dry OBJ DATA Labs CBC & Chem 7: 02/09/20 06:09 02/09/20 06:09 Labs: Abnormal Lab Results 02/09/20 02/09/20 02/08/20 06:09 06:09 10:00 RBC 3.37 L Hgb 8.4 L 10.5 L Hct 25.6 L 32.3 L RDW 20.4 H MPV 11.3 H Gran % 85.2 H Lymph % (Auto) 7.8 L Gran # 9.24 H Lymph # (Auto) 0.84 L Glucose 118 H Calcium 8.4 L Lactate Dehydrogenase 254 H Albumin 3.1 L Meds: Medications Acetaminophen (Tylenol) 650 mg PO Q6HP PRN PRN Reason: PAIN/FEVER > 101 Hydrocodone Bitart/Acetaminophen ([place] 7.5/325mg) 0 tab PO Q4HP PRN; Protocol PRN Reason: Per Pain Protocol Last Admin: 02/08/20 20:41 Dose: 1 tab Documented by: Albuterol/Ipratropium (Duoneb) 3 ml NEB Q4HP PRN PRN Reason: Shortness Of Breath Bisacodyl (Dulcolax) 10 mg [place] Q2-3DAYS PRN PRN Reason: Constipation Docusate Sodium (Colace) 100 mg PO BID [facility] Last Admin: 02/08/20 20:42 Dose: Not Given Documented by: Ezetimibe (Zetia) 10 mg PO DAILY [facility] Enalaprilat (Vasotec) 0 mg IV Q2HP PRN PRN Reason: Hypertension Potassium Chloride 40 meq/ (Dextrose) 520 mls @ 130 mls/hr IV UD PRN PRN Reason: Potassium < 3 Magnesium Sulfate (Magnesium Sulfate) 2 gm in 50 mls @ 50 mls/hr IV UD PRN PRN Reason: Magnesium </= 1.6 Levothyroxine Sodium (Synthroid) 50 mcg PO QAMAC [facility] Last Admin: 02/09/20 07:10 Dose: 50 mcg Documented by: Losartan Potassium (Cozaar) 50 mg PO DAILY [facility] Last Admin: 02/08/20 20:40 Dose: 50 mg Documented by: Magnesium Hydroxide (Milk Of Magnesia) 30 ml PO BIDP PRN PRN Reason: Constipation Methocarbamol (Robaxin) 750 mg PO QID PRN PRN Reason: Pain Last Admin: 02/08/20 20:42 Dose: 750 mg Documented by: Morphine Sulfate (Morphine) 0 mg IV Q3HP PRN PRN Reason: Pain Ondansetron HCl (Zofran) 4 mg IV Q4HP PRN PRN Reason: Nausea And Vomiting Oxybutynin Chloride (Ditropan Xl) 5 mg PO QHS [facility] Last Admin: 02/08/20 20:41 Dose: 5 mg Documented by: Polyethylene Glycol (Miralax) 17 gm PO DAILYP PRN PRN Reason: Constipation Potassium Chloride (Kdur) 40 meq PO UD PRN PRN Reason: Potssium is 3-3.5 Potassium Chloride (Kdur) 40 meq PO UD PRN PRN Reason: Potassium < 3 Pramipexole Dihydrochloride (Mirapex) 1 mg PO TID@1400,1800,2200 [facility] Last Admin: 02/08/20 20:42 Dose: 1 mg Documented by: Quetiapine Fumarate (Seroquel) 400 mg PO QPM [facility] Last Admin: 02/08/20 20:41 Dose: 400 mg Documented by: Sensilver (Senokot) 2 tab PO HS [facility] Last Admin: 02/08/20 20:41 Dose: 2 tab Documented by: S[place]il[place] (Senokot) 2 tab PO DAILYP PRN PRN Reason: Constipation Sodium Biphosphate/Sodium Phosphate (Fleets Adult) 1 dose [place] Q3-4DAYS PRN PRN Reason: Constipation Sodium Chloride (Saline Flush) 10 ml IV Q8 [facility] Last Admin: 02/09/20 05:45 Dose: 10 ml Documented by: Throat Lozenges (Cepacol) 1 lozenge PO PRN PRN PRN Reason: Sore Throat A/P Narrative A/P Narrative: A: *Right hip fracture: s/p ORIF (02/07) *Syncope: Sounds like a vasovagal episode vs orthostatic hypotension -EKG and Trop unremarkable *Hypothyroidism: *HTN/HLD: *GERD: *Anemia, chronic: acute component post op *Depression/anxiety/bipolar: * P: -Dr Birmingham for orthopedic surgery -pain control -pt/ot -cont home psych meds -cont home ARB -CM for placement -ppx: scd, post-op per ortho Time Spent With Patient Time: Total time spent is greater than 50% in coordination of care (as documented) at patient's floor/unit and/or counseling patient: QUALITY VTE Deep Vein Thrombosis/Pulmonary Embolism Present on Admission: No
[2020-02-09 08:12] LABS: INR 1.1 (0.9-1.1); Prothrombin Time 14.2 sec (11.9-14.5)
[2020-02-09] MEDS: DOCUSATE SODIUM 100 MG CAPSULE PO SCH ×2 (08:53→21:23)
[2020-02-09] MEDS: EZETIMIBE 10 MG TABLET PO SCH (08:53)
[2020-02-09] MEDS: LOSARTAN 50 MG TABLET PO SCH (08:53)
[2020-02-09] MEDS: HYDROCODONE/APAP 7.5/325MG TABLET PO PRN ×2 (08:53→17:30)
[2020-02-09] MEDS ORDERED: LOSARTAN 50 MG TABLET PO SCH (09:00)
[2020-02-09] MEDS ORDERED: lamoTRIgine 25 MG TABLET PO SCH (09:00)
[2020-02-09] MEDS ORDERED: VENLAFAXINE 150 MG CAP.XL.24H PO SCH (09:00)
[2020-02-09] MEDS ORDERED: cefTRIAXone 2 GM in DEXTROSE 5% IN WATER 50 ML IV ONE (11:23)
[2020-02-09] MEDS: PRAMIPEXOLE 1 MG TABLET PO SCH ×3 (15:14→21:23)
[2020-02-09] MEDS: METHOCARBAMOL 750 MG TABLET PO PRN (17:31)
[2020-02-09] MEDS: SENNOSIDES 1 TABLET PO SCH (21:23)
[2020-02-09] MEDS: QUEtiapine 100 MG TABLET PO SCH (21:24)
[2020-02-09] MEDS: ASPIRIN 81 MG TAB.CHEW CHEWED SCH (21:24)
[2020-02-09] MEDS: OXYBUTYNIN CHLORIDE 5 MG TAB.XL.24H PO SCH (21:24)
[2020-02-09] MEDS: OMEPRAZOLE 20 MG CAPSULE PO SCH (22:45)
[2020-02-10] MEDS: HYDROCODONE/APAP 7.5/325MG TABLET PO PRN ×2 (04:21→12:28)
[2020-02-10] MEDS: 0.9 % SODIUM CHLORIDE 10 ML SYRINGE IV SCH (05:10)
[2020-02-10 06:55] LABS: Hematocrit 28.7 % (34.1-44.9)
[2020-02-10 07:16] LABS: Prothrombin Time 13.2 sec (11.9-14.5)
[2020-02-10] MEDS: LEVOTHYROXINE 50 MCG TABLET PO SCH (07:18)
--- NOTE | 2020-02-10 08:32 | Internal Med Progress Note ---
SUBJECTIVE Subjective Patient information: Note initiated : 02/10/20 at 8:30 am Service Date, if different from initiated Date: [] Patient: Jazmin Hooker a 79 y/o F admitted on 02/08/20 for Fall. Chief Complaint: [] Interval history: History of present illness: Ms. Hooker is a 79 year old F Presents the ED with right hip pain. Patient was in her normal state of health yesterday. However yesterday evening she was sitting at the table doing jewelry for least a couple hours when she got up to go to the kitchen to get some coffee and passed out. She denied any prodromal symptoms of chest pain nausea diaphoresis warmth. She hit the ground and then she crawled to the bedroom and laid on the floor until she woke up her at 4 because of the pain. In the ED she evaluated found of a right hip fracture. Dr. Birmingham was contacted. Patient's laboratory essentially unremarkable except for some chronic anemia. EKG sinus rhythm. Chest x-ray unremarkable. Do not have the results of the urinalysis. She denies any recent illness or sick contacts. 02/08 Doing well postop. No new complaints or overnight events. 02/09 Patient doing well. No issues overnight. Her no complaints. Status post ORIF yesterday. In physical therapy today case management placement needs. Review of Systems: denies headache/fever/chills/nausea/vomiting/chest or abdominal pain/cough/dyspnea/diarrhea. Otherwise see above. Constitutional Vitals: Vital Signs Temp Pulse Resp BP Pulse Ox 99.2 F H 99 H 20 126/64 94 02/10/20 06:58 02/10/20 06:58 02/10/20 06:58 02/10/20 06:58 02/10/20 06:58 Period Temp Pulse Resp BP Sys/Henning Pulse Ox Last 24 Hr 97.6 F-99.4 F 83-114 12-20 95-154/48-72 87-97 Intake and Output 02/09/20 02/10/20 02/10/20 21:59 05:59 13:59 Intake Total 50 100 Output Total 300 25 Balance -250 75 Weight 66.905 kg Intake & Output: Intake & Output 02/09/20 02/10/20 02/10/20 21:59 05:59 13:59 Intake Total 50 100 Output Total 300 25 Balance -250 75 Weight 66.905 kg Intake: IV 50 Rocephin 2 gm In Dextrose 5% in 50 Water 50 ml @ 100 mls/hr IV ONCE ONE Rx#:[id number] Oral 100 Output: Urine Catheter Amount 300 Straight 300 Void Amount 25 Other: Urine Appearance Clear Straight Clear Urine Color Dark Yellow Straight Bright Yellow Exam: General: Alert, Awake, No acute Distress Eyes/N/T: EOMI, Head/Neck: neck supple, CV: RRR, No murmurs, Pulm: Clear b/l, no wheezing/rhonchi/rales Abd: soft, nontender, +BS x4 Ext: no clubbing/cyanosis/edema Neuro: Alert, no focal deficits, moves all extremities, Skin: warm/dry OBJ DATA Labs CBC & Chem 7: 02/10/20 04:55 02/09/20 06:09 Labs: Abnormal Lab Results 02/10/20 02/09/20 02/09/20 04:55 06:09 06:09 RBC Hgb 9.0 L 8.4 L Hct 28.7 L 25.6 L RDW MPV Gran % Lymph % (Auto) Gran # Lymph # (Auto) Glucose 118 H Calcium 8.4 L Lactate Dehydrogenase 254 H Albumin 3.1 L 02/08/20 10:00 RBC 3.37 L Hgb 10.5 L Hct 32.3 L RDW 20.4 H MPV 11.3 H Gran % 85.2 H Lymph % (Auto) 7.8 L Gran # 9.24 H Lymph # (Auto) 0.84 L Glucose Calcium Lactate Dehydrogenase Albumin Meds: Medications Acetaminophen (Tylenol) 650 mg PO Q6HP PRN PRN Reason: PAIN/FEVER > 101 Hydrocodone Bitart/Acetaminophen ([place] 7.5/325mg) 0 tab PO Q4HP PRN; Protocol PRN Reason: Per Pain Protocol Last Admin: 02/10/20 04:21 Dose: 2 tab Documented by: Albuterol/Ipratropium (Duoneb) 3 ml NEB Q4HP PRN PRN Reason: Shortness Of Breath Aspirin (Aspirin) 81 mg CHEWED BID [facility] Last Admin: 02/09/20 21:24 Dose: 81 mg Documented by: Bisacodyl (Dulcolax) 10 mg MS Q2-3DAYS PRN PRN Reason: Constipation Docusate Sodium (Colace) 100 mg PO BID [facility] Last Admin: 02/09/20 21:23 Dose: 100 mg Documented by: Ezetimibe (Zetia) 10 mg PO DAILY [facility] Last Admin: 02/09/20 08:53 Dose: 10 mg Documented by: Enalaprilat (Vasotec) 0 mg IV Q2HP PRN PRN Reason: Hypertension Potassium Chloride 40 meq/ (Dextrose) 520 mls @ 130 mls/hr IV UD PRN PRN Reason: Potassium < 3 Magnesium Sulfate (Magnesium Sulfate) 2 gm in 50 mls @ 50 mls/hr IV UD PRN PRN Reason: Magnesium </= 1.6 Levothyroxine Sodium (Synthroid) 50 mcg PO QAMAC [facility] Last Admin: 02/10/20 07:18 Dose: 50 mcg Documented by: Losartan Potassium (Cozaar) 50 mg PO DAILY [facility] Last Admin: 02/09/20 08:53 Dose: 50 mg Documented by: Magnesium Hydroxide (Milk Of Magnesia) 30 ml PO BIDP PRN PRN Reason: Constipation Methocarbamol (Robaxin) 750 mg PO QID PRN PRN Reason: Pain Last Admin: 02/09/20 17:31 Dose: 750 mg Documented by: Morphine Sulfate (Morphine) 0 mg IV Q3HP PRN PRN Reason: Pain Omeprazole (Prilosec) 40 mg PO QDAY [facility] Last Admin: 02/09/20 22:45 Dose: 40 mg Documented by: Ondansetron HCl (Zofran) 4 mg IV Q4HP PRN PRN Reason: Nausea And Vomiting Oxybutynin Chloride (Ditropan Xl) 5 mg PO QHS [facility] Last Admin: 02/09/20 21:24 Dose: 5 mg Documented by: Polyethylene Glycol (Miralax) 17 gm PO DAILYP PRN PRN Reason: Constipation Potassium Chloride (Kdur) 40 meq PO UD PRN PRN Reason: Potssium is 3-3.5 Potassium Chloride (Kdur) 40 meq PO UD PRN PRN Reason: Potassium < 3 Pramipexole Dihydrochloride (Mirapex) 1 mg PO TID@1400,1800,2200 [facility] Last Admin: 02/09/20 21:23 Dose: 1 mg Documented by: Quetiapine Fumarate (Seroquel) 400 mg PO QPM [facility] Last Admin: 02/09/20 21:24 Dose: 400 mg Documented by: Carlos A (Senokot) 2 tab PO HS [facility] Last Admin: 02/09/20 21:23 Dose: 2 tab Documented by: Carlos A (Senokot) 2 tab PO DAILYP PRN PRN Reason: Constipation Sodium Biphosphate/Sodium Phosphate (Fleets Adult) 1 dose MS Q3-4DAYS PRN PRN Reason: Constipation Sodium Chloride (Saline Flush) 10 ml IV Q8 [facility] Last Admin: 02/10/20 05:10 Dose: 10 ml Documented by: Throat Lozenges (Cepacol) 1 lozenge PO PRN PRN PRN Reason: Sore Throat A/P Narrative A/P Narrative: A: *Right hip fracture: s/p ORIF (02/07) *Syncope: Sounds like a vasovagal episode vs orthostatic hypotension -EKG and Trop unremarkable *Hypothyroidism: *HTN/HLD: *GERD: *Anemia, chronic: acute component post op, improved *Depression/anxiety/bipolar: * P: -Dr Birmingham for orthopedic surgery -pain control -pt/ot -IS -cont home psych meds -cont home ARB -CM for placement -ppx: scd, post-op per ortho 81mg ASA bid Time Spent With Patient Time: Total time spent is greater than 50% in coordination of care (as documented) at patient's floor/unit and/or counseling patient: QUALITY VTE Deep Vein Thrombosis/Pulmonary Embolism Present on Admission: No
[2020-02-10] MEDS ORDERED: OMEPRAZOLE 20 MG CAPSULE PO SCH (09:00)
[2020-02-10] MEDS: EZETIMIBE 10 MG TABLET PO SCH (10:00)
[2020-02-10] MEDS: ASPIRIN 81 MG TAB.CHEW CHEWED SCH (10:00)
[2020-02-10] MEDS: DOCUSATE SODIUM 100 MG CAPSULE PO SCH (10:00)
[2020-02-10] MEDS: OMEPRAZOLE 20 MG CAPSULE PO SCH (10:01)
[2020-02-10] MEDS: LOSARTAN 50 MG TABLET PO SCH (10:01)
--- NOTE | 2020-02-10 10:21 | Discharge Summary ---
Discharge Provider Provider Patient information: Note initiated : 02/10/20 at 10:18 am Service Date, if different from initiated Date: [] Patient: Jazmin Hooker 79 y/o F admitted on 02/08/20 for Fall. Chief Complaint: [S/p right hip hemiarthroplasty] Date of admission: 02/08/20 15:11 Discharge date: 02/10/20 Primary care physician: Keila Quintero Consults: 02/08/20 Consult to Physician [CONS] Stat Comment: Consulting Provider: Steven Birmingham Reason For Exam: Physician to Consult Consult to Physician [CONS] Stat Comment: Consulting Provider: Sharif Garner Reason For Exam: Physician to Consult COURSE Hospital Course Hospital course: Post-operatively, the patient was returned to the [facility]. She was provided routine pain management and maintained on prophylactic abx. She is doing well at the time of discharge and tolerating all medications well. She is discharged to follow-up with me in approximately 2 weeks. She will call with any questions or concerns whatsoever. Discharge diagnosis: S/p right hip hemiarthroplasty Time Spent with Patient Time attestation: Total time spent providing and/or coordinating discharge services: 30 min Physical Examination Exam Incision healing: Yes Incision draining: No Incision red: No Incision swollen: No Clean and dry: Yes Weight bearing status: as tolerated DC Instructions-General Patient Instructions Dressing Care: Aquacel Ag - leave on for 5 days Discharge Plan Patient/Caregiver Discharge Instructions Activity: ambulate only with your walker Diet: Regular Diet Prescriptions: New methocarbamol 750 mg Tablet 750 mg PO QID PRN (Reason: Pain) Qty: 40 RF: 0 hydrocodone-acetaminophen 7.5-325 mg Tablet 1 - 2 tab PO Q4HP PRN (Reason: Per Pain Protocol) Qty: 50 RF: 0 aspirin 81 mg Tablet,Chewable 81 mg CHEWED BID Qty: 60 RF: 0 Continued biotin 10,000 mcg capsule 10,000 mcg PO QDAY RF: 0 vit C,E,zinc,Ld-uglvd-3-lutein-zeaxanthin 250 mg-2.5 mg-0.5 mg capsule 250-2.5-0.5 mg capsule 1 cap PO QDAY RF: 0 omeprazole 40 mg capsule,delayed release(DR/EC) 40 mg PO QDAY Qty: 30 RF: 2 vitamin B complex [B Complex-Vitamin B12] Tablet 1 tab PO QDAY RF: 0 ezetimibe 10 mg tablet 10 mg PO DAILY Qty: 90 RF: 2 levothyroxine 50 mcg tablet 50 mcg PO QDAY Qty: 90 RF: 0 losartan 50 mg tablet See Rx Instructions .ROUTE .COMPLEX Qty: 90 RF: 0 oxybutynin chloride 5 mg tablet extended release 24hr 5 mg PO QHS RF: 0 quetiapine [Seroquel] 400 mg tablet 400 mg PO QPM RF: 0 ferrous sulfate 325 mg (65 mg iron) tablet 325 mg PO QDAY RF: 0 albuterol sulfate [ProAir HFA] 90 mcg/actuation HFA aerosol inhaler 1 inh INHALATION TID PRN (Reason: as) RF: 0 mupirocin 2 % ointment 1 applic TOPICAL BID RF: 0 pramipexole 1 mg tablet 1 mg PO TID RF: 0 bupropion HCl 100 mg tablet sustained-release 12 hr 100 mg PO QDAY RF: 0 Follow Up Plan Follow up with: Davina Samson PA-C [Physician Solar Design Engineer] - Keila Quintero ARNP [Primary Care Provider] - Patient Disposition: Home, Self-Care Prognosis: Good Discharge Orders: Discharge Order (Routine); Ordered 02/10/20 Ordered By: Davina Samson Pending Pending Pending: Resuscitation Status Full Code Diet Regular Diet Start TueFeb 07 1355 Hydrocodone Bitart/Acetaminophen ([place] 7.5/325mg) 0 tab PO Q4HP PRN; Protocol PRN Reason: Per Pain Protocol Last Admin: 02/10/20 04:21 Dose: 2 tab Documented by: Admin: 02/09/20 17:30 Dose: 1 tab Documented by: Admin: 02/09/20 08:53 Dose: 1 tab Documented by: Admin: 02/08/20 20:41 Dose: 1 tab Documented by: CELINA Aspirin (Aspirin) 81 mg CHEWED BID ON LICENSE OF [facility] Last Admin: 02/10/20 10:00 Dose: 81 mg Documented by: Admin: 02/09/20 21:24 Dose: 81 mg Documented by: DENNIS Docusate Sodium (Colace) 100 mg PO BID ON LICENSE OF [facility] Last Admin: 02/10/20 10:00 Dose: 100 mg Documented by: Admin: 02/09/20 21:23 Dose: 100 mg Documented by: Admin: 02/09/20 08:53 Dose: 100 mg Documented by: Admin: 02/08/20 20:42 Dose: Not Given Documented by: CELINA Ezetimibe (Zetia) 10 mg PO DAILY ON LICENSE OF [facility] Last Admin: 02/10/20 10:00 Dose: 10 mg Documented by: Admin: 02/09/20 08:53 Dose: 10 mg Documented by: CHAIM Levothyroxine Sodium (Synthroid) 50 mcg PO QAMAC ON LICENSE OF [facility] Last Admin: 02/10/20 07:18 Dose: 50 mcg Documented by: Admin: 02/09/20 07:10 Dose: 50 mcg Documented by: CHAIM Losartan Potassium (Cozaar) 50 mg PO DAILY ON LICENSE OF [facility] Last Admin: 02/10/20 10:01 Dose: 50 mg Documented by: Admin: 02/09/20 08:53 Dose: 50 mg Documented by: Admin: 02/08/20 20:40 Dose: 50 mg Documented by: CELINA Methocarbamol (Robaxin) 750 mg PO QID PRN PRN Reason: Pain Last Admin: 02/09/20 17:31 Dose: 750 mg Documented by: Admin: 02/08/20 20:42 Dose: 750 mg Documented by: CELINA Omeprazole (Prilosec) 40 mg PO QDAY ON LICENSE OF [facility] Last Admin: 02/10/20 10:01 Dose: 40 mg Documented by: Admin: 02/09/20 22:45 Dose: 40 mg Documented by: DENNIS Oxybutynin Chloride (Ditropan Xl) 5 mg PO QHS ON LICENSE OF [facility] Last Admin: 02/09/20 21:24 Dose: 5 mg Documented by: Admin: 02/08/20 20:41 Dose: 5 mg Documented by: CELINA Pramipexole Dihydrochloride (Mirapex) 1 mg PO TID@1400,1800,2200 ON LICENSE OF [facility] Last Admin: 02/09/20 21:23 Dose: 1 mg Documented by: Admin: 02/09/20 17:31 Dose: 1 mg Documented by: Admin: 02/09/20 15:14 Dose: 1 mg Documented by: Admin: 02/08/20 20:42 Dose: 1 mg Documented by: Admin: 02/08/20 18:36 Dose: 1 mg Documented by: Admin: 02/08/20 15:53 Dose: 1 mg Documented by: CHAIM Quetiapine Fumarate (Seroquel) 400 mg PO QPM ON LICENSE OF [facility] Last Admin: 02/09/20 21:24 Dose: 400 mg Documented by: Admin: 02/08/20 20:41 Dose: 400 mg Documented by: CELINA Senna (Senokot) 2 tab PO HS ON LICENSE OF [facility] Last Admin: 02/09/20 21:23 Dose: 2 tab Documented by: Admin: 02/08/20 20:41 Dose: 2 tab Documented by: CELINA Sodium Chloride (Saline Flush) 10 ml IV Q8 ON LICENSE OF [facility] Last Admin: 02/10/20 05:10 Dose: 10 ml Documented by: Admin: 02/09/20 23:32 Dose: 10 ml Documented by: Admin: 02/09/20 12:39 Dose: 10 ml Documented by: Admin: 02/09/20 05:45 Dose: 10 ml Documented by: Admin: 02/08/20 23:36 Dose: 10 ml Documented by: Admin: 02/08/20 15:53 Dose: Not Given Documented by: CHAIM Shift Summary 02/10/20 03:39 Shift Summary by Bonnie Bentley Addendum entered by Bonnie Bentley R.N. 02/10/20 04:54: Pt voided 25mL. PVR 404mL. Hydrocodone 2 tabs given for 7/10 pain. Original Note: Pt admitted after fall and fracture of rt hip. Pt is oriented x4 but is drowsy. She has been drowsy all shift and falls asleep in the middle of conversation. She is weightbearing as tolerated and Rt hip dressing is c/d/i. She has lalita, xeroform, and medipore to the surgical site. IV to RAC is SL. At 2330 a bladder scan showed 113mL but pt had no urge to void and did not want to try. She was too drowsy to ambulate. Bladder scan will be done again at 0400. Pt has not complained of pain so no pain medication has been given. BP dropped to 95/48 but has remained stable. O2 also dropped to 80s. Pt was put on 1L O2 per nasal cannula and is satting in the 90s now. Will update at bedside. Initialized on 02/10/20 03:39 - END OF NOTE
--- NOTE | 2020-02-10 10:33 | General Surgery Progress Note ---
SUBJECTIVE Subjective Patient information: Note initiated : 02/10/20 at 10:31 am Service Date, if different from initiated Date: [] Patient: Jazmin Hooker 79 y/o F admitted on 02/08/20 for Fall. Chief Complaint: [S/P RIGHT HIP HEMIARTHROPLASTY] THE PATIENT IS DOING WELL AND HAS NO COMPLAINTS. SHE IS ANXIOUS TO BE DISCHARGED. SHE DENIES ANY LOWER EXTREMITY CALF TENDERNESS, SOA, OR CHEST PAIN. Constitutional Vitals: Vital Signs Temp Pulse Resp BP Pulse Ox 99.2 F H 99 H 20 126/64 94 02/10/20 06:58 02/10/20 06:58 02/10/20 06:58 02/10/20 06:58 02/10/20 06:58 Period Temp Pulse Resp BP Sys/Henning Pulse Ox Last 24 Hr 97.6 F-99.4 F 83-114 12-20 95-154/48-72 87-97 Intake and Output 02/09/20 02/10/20 02/10/20 21:59 05:59 13:59 Intake Total 50 100 Output Total 300 25 Balance -250 75 Weight 147 lb 8 oz Intake & Output: Intake & Output 02/09/20 02/10/20 02/10/20 21:59 05:59 13:59 Intake Total 50 100 Output Total 300 25 Balance -250 75 Weight 147 lb 8 oz Intake: IV 50 Rocephin 2 gm In Dextrose 5% in 50 Water 50 ml @ 100 mls/hr IV ONCE ONE Rx#:[id number] Oral 100 Output: Urine Catheter Amount 300 Straight 300 Void Amount 25 Other: Urine Appearance Clear Straight Clear Urine Color Dark Yellow Straight Bright Yellow Head Head exam: Present atraumatic and normal inspection Expanded Lower Extremity Exam Hip exam: Present tenderness (TENDERNESS TO PALPATION OF THE RIGHT HIP SURGICAL INCISION) Lower leg exam: Present Ibeth's sign (NEGATIVE BILATERALLY) and tenderness (NO CALF TENDERNESS) Psychiatric Psychiatric exam: Present normal affect and normal mood A/P Assessment and plan (1) Closed fracture of right hip: Status: Acute Comment: DISCHARGE TO HOME TODAY WITH HOME HEALTH PT/OT. APPLY AQUACEL DRESSING PRIOR TO DISCHARGE. PATIENT MAY BE WBAT. FOLLOW-UP WITH ME IN 2 WEEKS. Qualifiers: Encounter type: initial encounter Qualified Code(s): S72.001A - Fracture of unspecified part of neck of right femur, initial encounter for closed fracture Time Spent With Patient Time: Total time spent is greater than 50% in coordination of care (as documented) at patient's floor/unit and/or counseling patient:
== END 2020-02-10 13:02 | disposition home or self-care (01) | DRG 470 ==
LOC: ED 09:24 → SUR 12:19 → MEDSUR 15:11
PROVIDERS: ADMIT Internal Medicine; ATTEND Orthopaedic Surgery Orthopaedic Surgery of the Spine

== ENCOUNTER 2020-02-13 16:17 | Inpatient (IN) ==
[2020-02-13] MEDS ORDERED: IOPAMIDOL 100 ML BOTTLE IV ONE (16:18)
--- NOTE | 2020-02-13 17:21 | XRay Report ---
CLINICAL INFORMATION: CP/dyspnea COMPARISON: 02/08/2020 FINDINGS: Moderate hiatal hernia is unchanged. The heart is borderline enlarged, but stable. The remaining mediastinum and pulmonary vessels are unremarkable. Moderate patchy right perihilar and smaller patchy left perihilar and left basilar infiltrates are new from previous exam. No effusion. IMPRESSION: Right and smaller left perihilar infiltrates - new from x-ray less than one week ago. Consider aspiration Moderate hiatal hernia Interpreted and Authenticated by: Edwardo Renee 02/13/20
--- NOTE | 2020-02-13 17:57 | Cat Scan Report ---
CLINICAL INFORMATION: Shortness of breath and fever COMPARISON: None. TECHNIQUE: 80ml of Isovue-370 were injected intravenously. Using SmartPrep to maximize pulmonary artery opacification, .625mm helical slices were obtained from the lung apices through the lung bases. Following reconstruction, 2.5 mm sagittal, coronal, and axial reformations were processed. The exam was reviewed at mediastinal, lung, and bone windows. The exam was performed using radiation dose optimization techniques including, but not limited to, automated exposure control, adjustment of the mA and/or kV according to patient size and use of iterative reconstruction technique. FINDINGS: Pulmonary parenchyma windows show large patchy alveolar infiltrates and the posterior segment of the right upper lobe, right middle lobe and the right lower lobe. There are moderate patchy infiltrates about the left lower lobe and the posterior segment of the left upper lobe. No effusions. Mediastinal windows show a massive hiatal hernia consisting the entire stomach which has transmigrated into the middle mediastinum and undergone organoaxial volvulus. The pulmonary arteries are well-opacified - no evidence of embolus. Thoracic aorta is normal in diameter with scattered atherosclerotic plaque. A few mildly enlarged lymph nodes in the lower mediastinum including the AP window, and pericarinal region almost certainly benign reactive adenopathy. Bone windows show mild compression fracture of the lower thoracic vertebral body likely T11. 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 Mild diffuse osteoporosis noted. Images should the superior abdomen show no abnormality IMPRESSION: 1. No evidence of pulmonary embolus. 2. Large patchy infiltrates throughout the posterior segment of the right upper lobe, right middle lobe and right lower lobe. Moderate patchy infiltrate throughout the left lower lobe and posterior segment left upper lobe. Consider aspiration. 3. Massive hiatal hernia which has undergone organoaxial volvulus. Patient is at risk for aspiration pneumonia. Interpreted and Authenticated by: Edwardo Renee 02/13/20
[2020-02-13 18:10] LABS: ALT/SGPT 10 U/l (0-40); AST/SGOT 27 U/l (0-37); Albumin 2.6 gm/dL (3.2-5.2); Albumin/Globulin Ratio 0.8 (1.0-2.3); Alkaline Phosphatase 71 U/L (39-117); Bilirubin,Total 0.4 mg/dL (0.0-1.0); Blood Urea Nitrogen 32 mg/dl (8-23); Calcium 8.3 mg/dl (8.6-10.4); Carbon Dioxide 19 mmol/L (22-30); Chloride 97 mmol/L (96-108); Globulin 3.1 gm/dL (2.2-3.7); Glomerular Filtration Rate 23; Glucose 118 mg/dL (70-105)
[2020-02-13 18:26] LABS: Basophils # (Auto) 0.02 K/mcL (0.00-0.30); Basophils % (Auto) 0.2 % (0.0-2.0); Eosinophils # (Auto) 0.03 K/mcL (0.00-0.70); Eosinophils % (Auto) 0.3 % (0.0-7.0); Granulocytes % (Auto) 88.6 % (38.0-78.0); Hematocrit 27.1 % (34.1-44.9); Hemoglobin 8.1 g/dL (11.2-15.7); Lymphocytes # (Auto) 0.65 K/mcL (1.50-4.80); Lymphocytes % (Auto) 7.2 % (15.5-49.0); Mean Cell Volume 102.7 fL (80.0-100.0); Mean Corpuscular HGB Conc 29.9 g/dL (31.0-36.0); Mean Platelet Volume 11.5 fL (7.4-10.4); Monocytes # (Auto) 0.34 K/mcL (0.10-0.90); Monocytes % (Auto) 3.7 % (1.0-12.0); Platelet Count 482 K/mcL (140-440); RBC 2.64 M/mcL (3.59-5.38); Red Cell Distribution Width 22.4 % (11.5-14.5); WBC 9.1 K/mcL (4.50-11.00)
[2020-02-13] MEDS ORDERED: cefTRIAXone 1 GM VIAL IV ONE (18:40)
[2020-02-13] MEDS ORDERED: AZITHROMYCIN 500 MG in DEXTROSE 5% IN WATER 250 ML IV ONE (18:40)
[2020-02-13] MEDS ORDERED: 0.9 % SODIUM CHLORIDE 2,000 ML IV ONE (18:48)
[2020-02-13] MEDS ORDERED: 0.9 % SODIUM CHLORIDE 1,000 ML IV ONE (18:48)
--- NOTE | 2020-02-13 20:45 | Emergency Department Note ---
HPI General Chief complaint: Shortness of Breath/Dyspnea Stated complaint: SOB, fever Time Seen by Provider: 02/13/20 16:35 Source: patient and EMS Mode of arrival: ambulatory Limitations: altered mental status History of Present Illness HPI Narrative: 79-year old patient presenting with chief complaint of dyspnea, symptoms have been going on for hours with associated symptoms of fever, cough, wheezing. Patient with recent past medical history of surgery for a hip fracture several days ago as well as a negative COVID swab immediately at time of that surgery. Patient symptoms have just been going on for very short period of time and presented here. On arrival patient with significant oxygen requirement as well as tachycardia tachypnea. Related Data Home Medications Medication Instructions Recorded Confirmed biotin 10,000 mcg capsule 10,000 mcg PO QDAY 08/23/19 02/13/20 ferrous sulfate 325 mg (65 mg 325 mg PO QDAY tab 09/13/19 02/13/20 iron) tablet oxybutynin chloride 5 mg 5 mg PO QHS tab 09/13/19 02/13/20 tablet,extended release 24 hr pramipexole 1 mg tablet 1 mg PO TID 09/13/19 02/13/20 quetiapine 400 mg tablet 450 mg PO QPM tab 09/13/19 02/13/20 vitamin B complex 1 tab PO QDAY 09/13/19 02/13/20 omeprazole 20 mg PO QDAY 02/13/20 02/13/20 Previous Rx's Medication Instructions Recorded ezetimibe 10 mg tablet 10 mg PO DAILY #90 tab 05/07/19 levothyroxine 50 mcg tablet 50 mcg PO QDAY #90 tab 12/18/19 losartan 50 mg tablet See Rx Instructions .ROUTE 01/04/20 .COMPLEX #90 tablet hydrocodone-acetaminophen 1 - 2 tab PO Q4HP PRN #50 tab 02/10/20 methocarbamol 750 mg PO QID PRN #40 tab 02/10/20 Allergies Allergy/AdvReac Type Severity Reaction Status Date / Time codeine Allergy Unknown Unknown Verified 08/23/19 14:54 ciprofloxacin AdvReac Intermediate Flushing Verified 08/23/19 14:54 aspirin AdvReac Mild Gastrointestinal Verified 08/23/19 14:54 Upset hydrocodone AdvReac Mild Itching Verified 08/23/19 14:54 Sulfa (Sulfonamide AdvReac Mild Headache Verified 08/23/19 14:54 Antibiotics) Review of Systems ROS ROS Narrative: Narrative: All systems ED: reviewed and negative except as stated. [facility] Narrative Patient History Narrative: Narrative: Medical/Surgical/Family History All Active Problems (Updated 02/14/20 @ 06:38 by Josue Chacko MD) Multilobar lung infiltrate (Acute) Sepsis (Acute) Closed fracture of right hip (Acute) Counseling for estrogen replacement therapy (Chronic) CTS (carpal tunnel syndrome) (Chronic) Osteoarthritis (Chronic) Osteopenia (Chronic) Barretts esophagus (Chronic ~2012) Right wrist fracture (Chronic ~08/2012) Fracture of toe of left foot (Chronic ~02/2010) History of encephalitis (Chronic) Hiatal hernia (Chronic) Depression (Chronic) Anxiety (Chronic) GERD (gastroesophageal reflux disease) (Chronic) Headache (Chronic) Encounter for Zostavax administration (Chronic 10/24/14) History of tonsillectomy (Chronic) History of hysterectomy (Chronic) Bursitis, calcaneal (Chronic) Hypertension (Chronic) Hyperlipidemia (Chronic) Knee pain (Chronic) Restless leg syndrome (Chronic) Lumbosacral disc herniation (Chronic) Fracture of right hand (Chronic) SOB (shortness of breath) (Chronic) Anemia (Chronic) Peripheral edema (Chronic) Hyponatremia (Chronic) Osteopenia (Chronic) Osteoporosis (Chronic) Encounter for long-term (current) use of other medications (Chronic) Urinary frequency (Chronic) Atrophic vaginitis (Chronic) Bipolar 2 disorder (Chronic) Hypothyroidism (Chronic) Multifocal motor neuropathy (Chronic) Anemia, pernicious (Chronic) Lumbar back pain with radiculopathy affecting lower extremity (Chronic) Cellulitis (Chronic) Acute diarrhea (Chronic) Abscess of skin or subcutaneous tissue (Chronic) Medical History (Updated 02/14/20 @ 06:38 by Josue Chacko MD) Abscess of skin or subcutaneous tissue (Chronic) Acute diarrhea (Chronic) Anemia (Chronic) Anemia, pernicious (Chronic) Anxiety (Chronic) Atrophic vaginitis (Chronic) Barretts esophagus (Chronic ~2012) Bipolar 2 disorder (Chronic) Bursitis, calcaneal (Chronic) Cellulitis (Chronic) Counseling for estrogen replacement therapy (Chronic) CTS (carpal tunnel syndrome) (Chronic) Dr Smith Depression (Chronic) Encounter for long-term (current) use of other medications (Chronic) Encounter for Zostavax administration (Chronic 10/24/14) Fracture of right hand (Chronic) Fracture of toe of left foot (Chronic ~02/2010) GERD (gastroesophageal reflux disease) (Chronic) Headache (Chronic) Hiatal hernia (Chronic) History of encephalitis (Chronic) age 5 Hyperlipidemia (Chronic) Hypertension (Chronic) Hyponatremia (Chronic) Hypothyroidism (Chronic) Knee pain (Chronic) Lumbar back pain with radiculopathy affecting lower extremity (Chronic) Lumbosacral disc herniation (Chronic) Multifocal motor neuropathy (Chronic) Osteoarthritis (Chronic) Osteopenia (Chronic) Osteopenia (Chronic) Dexa on 08/02 Osteoporosis (Chronic) Peripheral edema (Chronic) Restless leg syndrome (Chronic) Right wrist fracture (Chronic ~08/2012) SOB (shortness of breath) (Chronic) Urinary frequency (Chronic) Surgical History History of back surgery (Chronic) Lumbar with Dr. Islas History of hysterectomy (Chronic) in the due to heavy bleeding History of tonsillectomy (Chronic) childhood Family History Father Cancer HTN (hypertension) Mother HTN (hypertension) Thyroid disorder Arthritis Social History Smoking Status: Never smoker Exam Narrative Narrative: Narrative: Vital signs and evaluated for hypoxia or hemodynamic compromise specifically tachycardia patient with 6 L O2 requirement along with significant tachycardia and respiratory distress General: Alert, interactive, appropriate Head: Atraumatic, normocephalic Eyes: Extraocular movements intact, sclera anicteric, no conjunctival injection Ears: Pinnae normal, no discharge Mouth: Oral mucosa moist, no acute swelling or evidence of infection Nares: No nasal discharge, patent bilaterally Neck: Trachea midline, full range of motion Chest: Symmetrical chest wall rise, breathing rapidly with dyspnea that is visible Cardiovascular: Patient with excellent perfusion to the extremities; with tachycardia Extremities: Full range of motion joints, no obvious deformities Neuro: Alert, oriented x3, cranial nerves II through XII grossly intact, patient without lateralizing findings such as weakness, or abnormal reflexes Psychiatric: Normal affect, normal mood General Limitations: altered mental status Course Vital Signs Vital signs: Vital Signs Temperature 100.0 F H 02/13/20 16:20 Pulse Rate 113 H 02/13/20 16:20 Respiratory Rate 34 H 02/13/20 16:20 Blood Pressure 94/49 02/13/20 16:20 Pulse Oximetry (%) 91 02/13/20 16:20 Temperature 97.5 F 02/13/20 23:12 Pulse Rate 108 H 02/14/20 05:06 Respiratory Rate 22 02/14/20 05:06 Blood Pressure 94/73 02/14/20 05:01 Pulse Oximetry (%) 90 02/14/20 05:06 [facility] MDM Narrative Medical decision making narrative: Narrative: Acute dyspnea differential diagnosis considered in this case included TN, heart failure, cardiac tamponade, bronchospasm, pulmonary embolism, pneumothorax, pneumonia or infection, and upper airway obstruction. After review of chart and patient history/physical exam/labs as well as imaging the differential diagnosis addressed was acute hypoxic respiratory failure, COPD exacerbation, pneumonia, sepsis, pulmonary edema, pneumothorax, metabolic acidosis, acute respiratory distress syndrome, panic attack, airflow obstruction, restrictive lung disease, aspiration, congestive heart failure, hypercapnia, influenza, bronchitis, upper respiratory infection, pulmonary embolism, cardiac tamponade, valvular obstruction, TN/ACS, and arrhythmia. Patient with recent surgery as well as significantly abnormal vital signs sent for emergent CT pulmonary angiogram which demonstrated multiple areas of increased density in various lobes through out the chest. However patient does not have evidence of a pulmonary embolism. She is treated with sepsis protocol as well as Zosyn, Rocephin and azithromycin. Discussed case with Dr. Garcia and consensus medical opinion is to admit the patient for ongoing care. Lab Data Result diagrams: 02/13/20 16:48 02/13/20 16:48 Labs: Lab Results 02/13/20 02/13/20 02/13/20 Range/Units 16:48 16:48 16:48 WBC 9.1 (4.50-11.00) K/mcL RBC 2.64 L (3.59-5.38) M/mcL Hgb 8.1 L (11.2-15.7) g/dL Hct 27.1 L (34.1-44.9) % MCV 102.7 H (80.0-100.0) fL MCH 30.7 (26.0-34.0) pg MCHC 29.9 L (31.0-36.0) g/dL RDW 22.4 H (11.5-14.5) % Plt Count 482 H (140-440) K/mcL MPV 11.5 H (7.4-10.4) fL Gran % 88.6 H (38.0-78.0) % Lymph % (Auto) 7.2 L (15.5-49.0) % [place] % (Auto) 3.7 (1.0-12.0) % Eos % (Auto) 0.3 (0.0-7.0) % Baso % (Auto) 0.2 (0.0-2.0) % Gran # 8.05 H (1.80-8.00) K/mcL Lymph # (Auto) 0.65 L (1.50-4.80) K/mcL [place] # (Auto) 0.34 (0.10-0.90) K/mcL Eos # (Auto) 0.03 (0.00-0.70) K/mcL Baso # (Auto) 0.02 (0.00-0.30) K/mcL Differential Comment Few nrbcs on scan D-Dimer 4.95 H (0.00-0.40) ug/ml VBG Lactic Acid (0.5-2.0) mmol/L Sodium 132 L (133-145) mmol/L Potassium 4.5 (3.3-5.1) mmol/L Chloride 97 (96-108) mmol/L Carbon Dioxide 19 L (22-30) mmol/L Anion Gap 16.0 (8-16) BUN 32 H (8-23) mg/dl Creatinine 2.0 H (0.6-1.1) mg/dl GFR Calculation 23 Glucose 118 H (70-105) mg/dL Calcium 8.3 L (8.6-10.4) mg/dl Total Bilirubin 0.4 (0.0-1.0) mg/dL AST 27 (0-37) U/l ALT 10 (0-40) U/l Alkaline Phosphatase 71 (39-117) U/L Troponin T (0-0.03) ng/ml Total Protein 5.7 L (5.9-8.4) gm/dL Albumin 2.6 L (3.2-5.2) gm/dL Globulin 3.1 (2.2-3.7) gm/dL Albumin/Globulin Ratio 0.8 L (1.0-2.3) 02/13/20 02/13/20 02/13/20 Range/Units 16:48 16:48 20:10 WBC (4.50-11.00) K/mcL RBC (3.59-5.38) M/mcL Hgb (11.2-15.7) g/dL Hct (34.1-44.9) % MCV (80.0-100.0) fL MCH (26.0-34.0) pg MCHC (31.0-36.0) g/dL RDW (11.5-14.5) % Plt Count (140-440) K/mcL MPV (7.4-10.4) fL Gran % (38.0-78.0) % Lymph % (Auto) (15.5-49.0) % [place] % (Auto) (1.0-12.0) % Eos % (Auto) (0.0-7.0) % Baso % (Auto) (0.0-2.0) % Gran # (1.80-8.00) K/mcL Lymph # (Auto) (1.50-4.80) K/mcL [place] # (Auto) (0.10-0.90) K/mcL Eos # (Auto) (0.00-0.70) K/mcL Baso # (Auto) (0.00-0.30) K/mcL Differential Comment D-Dimer (0.00-0.40) ug/ml VBG Lactic Acid 1.7 (0.5-2.0) mmol/L Sodium (133-145) mmol/L Potassium (3.3-5.1) mmol/L Chloride (96-108) mmol/L Carbon Dioxide (22-30) mmol/L Anion Gap (8-16) BUN (8-23) mg/dl Creatinine (0.6-1.1) mg/dl GFR Calculation Glucose (70-105) mg/dL Calcium (8.6-10.4) mg/dl Total Bilirubin (0.0-1.0) mg/dL AST (0-37) U/l ALT (0-40) U/l Alkaline Phosphatase (39-117) U/L Troponin T 0.07 H* 0.06 H* (0-0.03) ng/ml Total Protein (5.9-8.4) gm/dL Albumin (3.2-5.2) gm/dL Globulin (2.2-3.7) gm/dL Albumin/Globulin Ratio (1.0-2.3) CC TIME Critical Care Time Critical Care Time: Yes Total Critical Care Time: 35 Attestation: This critical care time was direct patient care exclusive of other procedures. Discharge Plan Patient/Caregiver Discharge Instructions Pt seen by PREFINISH OPERATOR/PA only: No Clinical Impression: Multilobar lung infiltrate, Sepsis Patient Disposition: Xfer As Inpt ([facility]) Discharge Date/Time: 02/13/20 22:55 Discharge Location: [facility]
--- NOTE | 2020-02-13 21:47 | Internal Med History&Physical ---
HPI History of Present Illness Patient information: Note initiated : 02/13/20 at 9:47 pm Service Date, if different from initiated Date: [] Patient: Jazmin Hooker a 79 y/o F admitted on for SOB, fever. Chief Complaint: Shortness of breath/cough History of present illness: Ms. Hooker is a 79 year old F with a history of hypertension/bipolar disorder who was recently discharged on February 09 following right hip fracture/right hip hemiarthroplasty. Patient was recovering well and was in her baseline state of health until last night. She woke up around 2 to use the bathroom following which her found that she was difficult to arouse this morning. She is also increasingly short of breath/coughing and fever. She is brought into the ER for evaluation. Initial work-up was consistent with severe hypoxic story failure requiring 6 L oxygen/multifocal chest infiltrates on CT angiogram chest and elevated creatinine 2. Hospital service was consulted in light of hypoxic respiratory failure/multifocal pneumonia and acute renal failure. At the time of my evaluation patient is accompanied with her . She is able to answer most of the question. She is markedly short of breath breathing at over 35 to 40-minute. She is currently on 6 days oxygen and unable to talk in full sentences. She denies diarrhea, bloody stool, dysuria, lightheadedness or dizziness. She denies lower extremity swelling/bleeding. She denies changes in medications, trauma or fall Review of systems A 10 point review system was performed and is negative except for ones cussed above PFSH PFSH All Active Problems (Updated 02/13/20 @ 20:44 by Josue Chacko MD) Multilobar lung infiltrate (Acute) Sepsis (Acute) Closed fracture of right hip (Acute) Counseling for estrogen replacement therapy (Chronic) CTS (carpal tunnel syndrome) (Chronic) Osteoarthritis (Chronic) Osteopenia (Chronic) Barretts esophagus (Chronic ~2012) Right wrist fracture (Chronic ~08/2012) Fracture of toe of left foot (Chronic ~02/2010) History of encephalitis (Chronic) Hiatal hernia (Chronic) Depression (Chronic) Anxiety (Chronic) GERD (gastroesophageal reflux disease) (Chronic) Headache (Chronic) Encounter for Zostavax administration (Chronic 10/24/14) History of tonsillectomy (Chronic) History of hysterectomy (Chronic) Bursitis, calcaneal (Chronic) Hypertension (Chronic) Hyperlipidemia (Chronic) Knee pain (Chronic) Restless leg syndrome (Chronic) Lumbosacral disc herniation (Chronic) Fracture of right hand (Chronic) SOB (shortness of breath) (Chronic) Anemia (Chronic) Peripheral edema (Chronic) Hyponatremia (Chronic) Osteopenia (Chronic) Osteoporosis (Chronic) Encounter for long-term (current) use of other medications (Chronic) Urinary frequency (Chronic) Atrophic vaginitis (Chronic) Bipolar 2 disorder (Chronic) Hypothyroidism (Chronic) Multifocal motor neuropathy (Chronic) Anemia, pernicious (Chronic) Lumbar back pain with radiculopathy affecting lower extremity (Chronic) Cellulitis (Chronic) Acute diarrhea (Chronic) Abscess of skin or subcutaneous tissue (Chronic) Medical History (Updated 02/13/20 @ 20:44 by Josue Chacko MD) Abscess of skin or subcutaneous tissue (Chronic) Acute diarrhea (Chronic) Anemia (Chronic) Anemia, pernicious (Chronic) Anxiety (Chronic) Atrophic vaginitis (Chronic) Barretts esophagus (Chronic ~2012) Bipolar 2 disorder (Chronic) Bursitis, calcaneal (Chronic) Cellulitis (Chronic) Counseling for estrogen replacement therapy (Chronic) CTS (carpal tunnel syndrome) (Chronic) Dr Smith Depression (Chronic) Encounter for long-term (current) use of other medications (Chronic) Encounter for Zostavax administration (Chronic 10/24/14) Fracture of right hand (Chronic) Fracture of toe of left foot (Chronic ~02/2010) GERD (gastroesophageal reflux disease) (Chronic) Headache (Chronic) Hiatal hernia (Chronic) History of encephalitis (Chronic) age 5 Hyperlipidemia (Chronic) Hypertension (Chronic) Hyponatremia (Chronic) Hypothyroidism (Chronic) Knee pain (Chronic) Lumbar back pain with radiculopathy affecting lower extremity (Chronic) Lumbosacral disc herniation (Chronic) Multifocal motor neuropathy (Chronic) Osteoarthritis (Chronic) Osteopenia (Chronic) Osteopenia (Chronic) Dexa on 08/02 Osteoporosis (Chronic) Peripheral edema (Chronic) Restless leg syndrome (Chronic) Right wrist fracture (Chronic ~08/2012) SOB (shortness of breath) (Chronic) Urinary frequency (Chronic) Surgical History History of back surgery (Chronic) Lumbar with Dr. 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 other: 1st husb of Suicide after 27yrs of marriage, was exp to HIV & HepC smoking status: Never smoker MEDS/ALLERGIES Home Medications and Allergies Home Medications Medication Instructions Recorded Confirmed Type ezetimibe 10 mg tablet 10 mg PO DAILY #90 tab 05/07/19 02/13/20 Rx biotin 10,000 mcg capsule 10,000 mcg PO QDAY 08/23/19 02/13/20 History ferrous sulfate 325 mg (65 mg 325 mg PO QDAY tab 09/13/19 02/13/20 History iron) tablet oxybutynin chloride 5 mg 5 mg PO QHS tab 09/13/19 02/13/20 History tablet,extended release 24 hr pramipexole 1 mg tablet 1 mg PO TID 09/13/19 02/13/20 History quetiapine 400 mg tablet 450 mg PO QPM tab 09/13/19 02/13/20 History vitamin B complex 1 tab PO QDAY 09/13/19 02/13/20 History levothyroxine 50 mcg tablet 50 mcg PO QDAY #90 tab 12/18/19 02/13/20 Rx losartan 50 mg tablet See Rx Instructions .ROUTE 01/04/20 02/13/20 Rx .COMPLEX #90 tablet hydrocodone-acetaminophen 1 - 2 tab PO Q4HP PRN #50 tab 02/10/20 02/13/20 Rx methocarbamol 750 mg PO QID PRN #40 tab 02/10/20 02/13/20 Rx omeprazole 20 mg PO QDAY 02/13/20 02/13/20 History Allergies Allergy/AdvReac Type Severity Reaction Status Date / Time codeine Allergy Unknown Unknown Verified 08/23/19 14:54 ciprofloxacin AdvReac Intermediate Flushing Verified 08/23/19 14:54 aspirin AdvReac Mild Gastrointestinal Verified 08/23/19 14:54 Upset hydrocodone AdvReac Mild Itching Verified 08/23/19 14:54 Sulfa (Sulfonamide AdvReac Mild Headache Verified 08/23/19 14:54 Antibiotics) EXAM Constitutional Vitals: Temp Pulse Resp BP Pulse Ox 100.0 F H 95 H 26 H 113/56 88 L 02/13/20 16:20 02/13/20 21:45 02/13/20 21:45 02/13/20 21:31 02/13/20 21:45 Head normocephalic Oral cavity moist No ear nose discharge Eye movement symmetrical Neck supple no lymphadenopathy S1-S2 regular tachycardia Tachypneic and labored breathing, diminished breath sounds bilateral Nondistended nontender abdomen Right hip postoperative incision site minimal swelling. Lower extremity no cyanosis clubbing or joint swelling Skin no suspicious lesion Psych anxious but alert cooperative Neuro normal higher function DATA Data Completed and Pending Labs: Labs from last 24 hours 02/13/20 02/13/20 02/13/20 20:16 20:10 16:48 WBC RBC Hgb Hct MCV MCH MCHC RDW Plt Count MPV Gran % Lymph % (Auto) [place] % (Auto) Eos % (Auto) Baso % (Auto) Gran # Lymph # (Auto) [place] # (Auto) Eos # (Auto) Baso # (Auto) Differential Comment D-Dimer VBG Lactic Acid 1.7 Sodium Potassium Chloride Carbon Dioxide Anion Gap BUN Creatinine GFR Calculation Glucose Calcium Total Bilirubin AST ALT Alkaline Phosphatase Troponin T 0.06 H* Total Protein Albumin Globulin Albumin/Globulin Ratio SARS-CoV-2 (PCR) Pending 02/13/20 02/13/20 02/13/20 16:48 16:48 16:48 WBC RBC Hgb Hct MCV MCH MCHC RDW Plt Count MPV Gran % Lymph % (Auto) [place] % (Auto) Eos % (Auto) Baso % (Auto) Gran # Lymph # (Auto) [place] # (Auto) Eos # (Auto) Baso # (Auto) Differential Comment D-Dimer 4.95 H VBG Lactic Acid Sodium 132 L Potassium 4.5 Chloride 97 Carbon Dioxide 19 L Anion Gap 16.0 BUN 32 H Creatinine 2.0 H GFR Calculation 23 Glucose 118 H Calcium 8.3 L Total Bilirubin 0.4 AST 27 ALT 10 Alkaline Phosphatase 71 Troponin T 0.07 H* Total Protein 5.7 L Albumin 2.6 L Globulin 3.1 Albumin/Globulin Ratio 0.8 L SARS-CoV-2 (PCR) 02/13/20 16:48 WBC 9.1 RBC 2.64 L Hgb 8.1 L Hct 27.1 L MCV 102.7 H MCH 30.7 MCHC 29.9 L RDW 22.4 H Plt Count 482 H MPV 11.5 H Gran % 88.6 H Lymph % (Auto) 7.2 L [place] % (Auto) 3.7 Eos % (Auto) 0.3 Baso % (Auto) 0.2 Gran # 8.05 H Lymph # (Auto) 0.65 L [place] # (Auto) 0.34 Eos # (Auto) 0.03 Baso # (Auto) 0.02 Differential Comment Few nrbcs on scan D-Dimer VBG Lactic Acid Sodium Potassium Chloride Carbon Dioxide Anion Gap BUN Creatinine GFR Calculation Glucose Calcium Total Bilirubin AST ALT Alkaline Phosphatase Troponin T Total Protein Albumin Globulin Albumin/Globulin Ratio SARS-CoV-2 (PCR) A/P Narrative A/P Narrative: * Acute hypoxic respiratory failure requiring 6 days oxygen secondary to multifocal pneumonia. Continue supplemental oxygen/BiPAP if increased work of breathing. * Multifocal pneumonia likely aspiration. Antibiotic coverage/aspiration precautions/ST eval * Acute renal failure likely secondary to volume depletion. Crystalloid/avoid nephrotoxins. Bunch's catheter/I's and O's/renal ultrasound/nephrology consult * Anemia secondary to recent surgery/blood loss. Monitor hemoglobin. 8.1. * History of hypertension hold losartan in light of renal failure. * Hypothyroidism continue oxygen * History of bipolar disorder continue quetiapine * Restless leg syndrome continue pramipexole * GERD continue PPI * Full code * Prophylaxis heparin Plan * Inpatient ICU admission * Noninvasive ventilation * Broad antibiotic coverage/aspiration precaution * Monitor renal function/crystalloids * Pre-existing medical condition management on home medications Time Spent With Patient Time: Total time spent is greater than 50% in coordination of care (as documented) at patient's floor/unit and/or counseling patient: Total time spent with greater than 50% in coordination of care (as documented) at patient's floor/unit and/or counseling patient:: Greater than 35 minutes QUALITY Stroke Symptom Onset Unknown: No
[2020-02-13] MEDS ORDERED: PIPERACILLIN SODIUM/TAZOBACTAM 3.375 GM in DEXTROSE 5% IN WATER 50 ML IV ONE (21:53)
[2020-02-13] MEDS ORDERED: MAGNESIUM SULFATE 2 GM/50 ML BAG IV PRN (23:05)
[2020-02-13] MEDS ORDERED: BISACODYL 10 MG SUPP.RECT PR PRN (23:05)
[2020-02-13] MEDS ORDERED: POLYETHYLENE GLYCOL 3350 17 GM PACKET PO PRN (23:05)
[2020-02-13] MEDS ORDERED: ONDANSETRON 4 MG/2 ML VIAL IV PRN (23:05)
[2020-02-13] MEDS ORDERED: ONDANSETRON 4 MG ODT TABLET SL PRN (23:05)
[2020-02-13] MEDS ORDERED: POTASSIUM CHLORIDE 20 MEQ PACKET PO PRN (23:05)
[2020-02-13] MEDS ORDERED: ACETAMINOPHEN 325 MG TABLET PO PRN (23:05)
[2020-02-13] MEDS: 0.9 % SODIUM CHLORIDE 1,000 ML IV SCH (23:27)
[2020-02-13] MEDS: 0.9 % SODIUM CHLORIDE 10 ML SYRINGE IV SCH (23:27)
[2020-02-13] MEDS: PIPERACILLIN SODIUM/TAZOBACTAM 3.375 GM in DEXTROSE 5% IN WATER 50 ML IV SCH (23:28)
[2020-02-14] MEDS: MELATONIN 3 MG TABLET PO PRN ×2 (00:22→20:07)
[2020-02-14] MEDS: PIPERACILLIN SODIUM/TAZOBACTAM 3.375 GM in DEXTROSE 5% IN WATER 50 ML IV SCH (05:32)
[2020-02-14] MEDS: 0.9 % SODIUM CHLORIDE 10 ML SYRINGE IV SCH ×3 (05:33→20:11)
[2020-02-14 06:39] LABS: Hematocrit 23.9 % (34.1-44.9); Hemoglobin 7.1 g/dL (11.2-15.7); Mean Cell Volume 104.8 fL (80.0-100.0); Mean Corpuscular HGB Conc 29.7 g/dL (31.0-36.0); Mean Platelet Volume 11.2 fL (7.4-10.4); RBC 2.28 M/mcL (3.59-5.38); Red Cell Distribution Width 22.5 % (11.5-14.5); WBC 9.5 K/mcL (4.50-11.00)
[2020-02-14 07:14] LABS: Bilirubin,Direct < 0.2 mg/dL (0.0-0.3); Chloride 101 mmol/L (96-108)
[2020-02-14 07:16] LABS: ALT/SGPT 11 U/l (0-40); AST/SGOT 40 U/l (0-37); Albumin 2.4 gm/dL (3.2-5.2); Albumin/Globulin Ratio 0.8 (1.0-2.3); Alkaline Phosphatase 67 U/L (39-117); Bilirubin,Total 0.3 mg/dL (0.0-1.0); Blood Urea Nitrogen 32 mg/dl (8-23); Calcium 7.8 mg/dl (8.6-10.4); Carbon Dioxide 17 mmol/L (22-30); Globulin 2.9 gm/dL (2.2-3.7); Glomerular Filtration Rate 33; Glucose 103 mg/dL (70-105); Phosphorous 3.1 mg/dL (2.7-4.5); Triglycerides 84 mg/dl (<150); Uric Acid 7.8 mg/dL (2.5-8.0)
[2020-02-14] MEDS: OMEPRAZOLE 20 MG CAPSULE PO SCH (07:29)
[2020-02-14] MEDS: LEVOTHYROXINE 50 MCG TABLET PO SCH (07:29)
[2020-02-14] MEDS: PRAMIPEXOLE 1 MG TABLET PO SCH ×3 (08:24→20:07)
[2020-02-14] MEDS: DOCUSATE SODIUM 100 MG CAPSULE PO SCH ×2 (08:24→20:06)
[2020-02-14] MEDS: FERROUS SULFATE 325 MG TABLET PO SCH (08:24)
[2020-02-14 08:46] LABS: Platelet Count 388 K/mcL (140-440)
[2020-02-14] MEDS: HEPARIN 5,000 UNIT/ML VIAL SQ SCH ×2 (08:52→20:05)
[2020-02-14 08:56] LABS: Anisocytosis 3+ (NONE SEEN); Band Neutrophils % 45 % (0-10); Eosinophils % (Manual) 2 % (0-7); Hypochromasia 1+ (NONE SEEN); Lymphocytes % 12 % (15-49); Macrocytosis 1+ (NONE SEEN); Monocytes % (Manual) 3 % (1-12); Platelet Estimate NORMAL (NORMAL); Polychromasia OCC (NONE SEEN); RBC Morphology ABNORM (NORMAL); Segmented Neutrophils % 38 % (38-78)
[2020-02-14] MEDS ORDERED: 0.9 % SODIUM CHLORIDE 250 ML IV SCH (09:00)
[2020-02-14] MEDS: 0.9 % SODIUM CHLORIDE 1,000 ML IV SCH ×2 (10:09→20:07)
--- NOTE | 2020-02-14 10:52 | Internal Med Progress Note ---
SUBJECTIVE Subjective Patient information: Note initiated : 02/14/20 at 10:49 am Service Date, if different from initiated Date: [] Patient: Jazmin Hooker a 79 y/o F admitted on 02/13/20 for SOB, fever. Chief Complaint: Ms. Hooker is a 79 year old F with a history of hypertension/bipolar disorder who was recently discharged on February 09 following right hip fracture/right hip hemiarthroplasty. Patient was recovering well and was in her baseline state of health until last night. She woke up around 2 to use the bathroom following which her found that she was difficult to arouse this morning. She is also increasingly short of breath/coughing and fever. She is brought into the ER for evaluation. Initial work-up was consistent with severe hypoxic story failure requiring 6 L oxygen/multifocal chest infiltrates on CT angiogram chest and elevated creatinine 2. Hospital service was consulted in light of hypoxic respiratory failure/multifocal pneumonia and acute renal failure. At the time of my evaluation patient is accompanied with her . She is able to answer most of the question. She is markedly short of breath breathing at over 35 to 40-minute. She is currently on 6 days oxygen and unable to talk in full sentences. She denies diarrhea, bloody stool, dysuria, lightheadedness or dizziness. She denies lower extremity swelling/bleeding. She denies changes in medications, trauma or fall 02/13-patient doing a lot better since admission. Currently on full dose oxygen. Alert oriented respond to commands. No telemetry events other than persistent tachycardia at 110 however respiratory rate improved to mid 20s. T-max 100.1. Hemoglobin down from 8.1-7.1. 2 units blood transfusion today. Heparin held. Creatinine down to 1.5 from 2, BUN improving. Platelets 103. ST eval today. All meals on on chair to prevent further aspiration. Constitutional Vitals: Vital Signs Temp Pulse Resp BP Pulse Ox 100.1 F H 110 H 29 H 107/63 97 02/14/20 08:01 02/14/20 08:01 02/14/20 08:01 02/14/20 08:01 02/14/20 08:01 Period Temp Pulse Resp BP Sys/Henning Pulse Ox Last 24 Hr 97.5 F-100.1 F 95-113 17-35 85-121/41-82 88-98 Intake and Output 02/13/20 02/14/20 02/14/20 21:59 05:59 13:59 Intake Total 3250 50 1050 Output Total 650 Balance 3250 -600 1050 Weight 63.503 kg 65.499 kg alert and respond to commands Minimally labored breathing Telemetry tachycardia Anxious Intake & Output: Intake & Output 02/13/20 02/14/20 02/14/20 21:59 05:59 13:59 Intake Total 3250 50 1050 Output Total 650 Balance 3250 -600 1050 Weight 63.503 kg 65.499 kg Intake: IV 3250 50 1050 Sodium Chloride 0.9% 1,000 ml @ 3000 1000 100 mls/hr IV .Q10H [facility] Rx#: [id number] Zithromax 500 mg In Dextrose 5% 250 in Water 250 ml @ 250 mls/hr IV ONCE ONE Rx#:[id number] Zosyn 3.375 gm In Dextrose 5% 50 50 in Water 50 ml @ 100 mls/hr IV Q6H [facility] Rx#:[id number] Output: Void Amount 650 OBJ DATA Labs CBC & Chem 7: 02/14/20 05:05 02/14/20 05:05 Labs: Abnormal Lab Results 02/14/20 02/14/20 02/13/20 05:05 05:05 20:10 RBC 2.28 L Hgb 7.1 L Hct 23.9 L MCV 104.8 H MCHC 29.7 L RDW 22.5 H Plt Count MPV 11.2 H Gran % Lymph % (Auto) Gran # Lymph # (Auto) Band Neutrophils % 45 H Lymphocytes % 12 L RBC Morphology Abnorm A Polychromasia Occ A Hypochromasia 1+ A Anisocytosis 3+ A Macrocytosis 1+ A D-Dimer Sodium Carbon Dioxide 17 L BUN 32 H Creatinine 1.5 H Glucose Calcium 7.8 L Magnesium 2.7 H AST 40 H Troponin T 0.06 H* Total Protein 5.3 L Albumin 2.4 L Albumin/Globulin Ratio 0.8 L 02/13/20 02/13/20 02/13/20 16:48 16:48 16:48 RBC Hgb Hct MCV MCHC RDW Plt Count MPV Gran % Lymph % (Auto) Gran # Lymph # (Auto) Band Neutrophils % Lymphocytes % RBC Morphology Polychromasia Hypochromasia Anisocytosis Macrocytosis D-Dimer 4.95 H Sodium 132 L Carbon Dioxide 19 L BUN 32 H Creatinine 2.0 H Glucose 118 H Calcium 8.3 L Magnesium AST Troponin T 0.07 H* Total Protein 5.7 L Albumin 2.6 L Albumin/Globulin Ratio 0.8 L 02/13/20 16:48 RBC 2.64 L Hgb 8.1 L Hct 27.1 L MCV 102.7 H MCHC 29.9 L RDW 22.4 H Plt Count 482 H MPV 11.5 H Gran % 88.6 H Lymph % (Auto) 7.2 L Gran # 8.05 H Lymph # (Auto) 0.65 L Band Neutrophils % Lymphocytes % RBC Morphology Polychromasia Hypochromasia Anisocytosis Macrocytosis D-Dimer Sodium Carbon Dioxide BUN Creatinine Glucose Calcium Magnesium AST Troponin T Total Protein Albumin Albumin/Globulin Ratio Meds: Medications Acetaminophen (Tylenol) 650 mg PO Q4-6HP PRN; Protocol PRN Reason: Per Pain Protocol/Fever > 101 Hydrocodone Bitart/Acetaminophen ([place] 7.5/325mg) 1 - 2 tab PO Q4HP PRN; Protocol PRN Reason: Per Pain Protocol Bisacodyl (Dulcolax) 10 mg AK Q2-3DAYS PRN PRN Reason: Constipation Docusate Sodium (Colace) 100 mg PO BID [facility] Last Admin: 02/14/20 08:24 Dose: 100 mg Documented by: Ferrous Sulfate (Ferrous Sulfate) 325 mg PO QDAY [facility] Last Admin: 02/14/20 08:24 Dose: 325 mg Documented by: Heparin Sodium (Porcine) (Heparin) 5,000 unit SQ Q12 [facility] Last Admin: 02/14/20 08:52 Dose: Not Given Documented by: Sodium Chloride (Sodium Chloride 0.9%) 1,000 mls @ 100 mls/hr IV .Q10H [facility] Last Admin: 02/14/20 10:09 Dose: 100 mls/hr Documented by: Acetaminophen (Ofirmev) 650 mg in 65 mls @ 130 mls/hr IV Q6HP PRN; Protocol PRN Reason: Per Pain Protocol/Fever > 101 Magnesium Sulfate (Magnesium Sulfate) 2 gm in 50 mls @ 50 mls/hr IV UD PRN PRN Reason: MG = or < 1.7 Piperacillin Sod/Tazobactam (Sod 2.25 gm/ Dextrose) 50 mls @ 100 mls/hr IV Q6H [facility] Sodium Chloride (Sodium Chloride 0.9%) 250 mls @ 20 mls/hr IV .[id number] [facility] Stop: 02/14/20 21:29 Last Admin: 02/14/20 08:55 Dose: 20 mls/hr Documented by: Levothyroxine Sodium (Synthroid) 50 mcg PO QAMAC [facility] Last Admin: 02/14/20 07:29 Dose: 50 mcg Documented by: Melatonin (Melatonin 3mg Tablet) 3 mg PO HSP PRN PRN Reason: Insomnia Last Admin: 02/14/20 00:22 Dose: 3 mg Documented by: Omeprazole (Prilosec) 20 mg PO ACB [facility] Last Admin: 02/14/20 07:29 Dose: 20 mg Documented by: Ondansetron HCl (Zofran Odt) 4 mg SL Q4-6HP PRN; Protocol PRN Reason: Nausea And Vomiting Ondansetron HCl (Zofran) 4 mg IV Q4-6HP PRN; Protocol PRN Reason: Nausea And Vomiting Polyethylene Glycol (Miralax) 17 gm PO DAILYP PRN PRN Reason: Constipation Potassium Chloride (Klor-Con) 40 meq PO DAILYP PRN PRN Reason: K+ < 3.5 Pramipexole Dihydrochloride (Mirapex) 1 mg PO TID [facility] Last Admin: 02/14/20 08:24 Dose: 1 mg Documented by: Quetiapine Fumarate (Seroquel) 400 mg PO HS [facility] Quetiapine Fumarate (Seroquel) 50 mg PO HS [facility] Senna/Docusate Sodium (Senna Plus Tablet) 1 tab PO HS [facility] Sodium Chloride (Saline Flush) 10 ml IV Q8 [facility] Last Admin: 02/14/20 05:33 Dose: 10 ml Documented by: A/P Narrative A/P Narrative: * Acute hypoxic respiratory failure improving now on 4 L oxygen, secondary to multifocal pneumonia. * Multifocal pneumonia likely aspiration in the setting of hiatal hernia. Antibiotic coverage/aspiration precautions/ST eval * Acute renal failure likely secondary to volume depletion. Improving with crystalloids. Creatinine down to 1.5 from 2. * Anemia secondary to recent surgery/blood loss. Hemoglobin down to 7.1. Continues PRBC transfusion * History of hypertension held losartan in light of renal failure. * Hypothyroidism continue thyroxine * History of bipolar disorder continue quetiapine * Restless leg syndrome continue pramipexole * GERD continue PPI * Full code * Prophylaxis heparin Plan * 2 units PRBC transfusion * Antibiotic coverage/ST eval * Broad antibiotic coverage/aspiration precaution * Monitor renal function/crystalloids * Pre-existing medical condition management on home medications Time Spent With Patient Time: Total time spent is greater than 50% in coordination of care (as documented) at patient's floor/unit and/or counseling patient: QUALITY Stroke Symptom Onset Unknown: No VTE Deep Vein Thrombosis/Pulmonary Embolism Present on Admission: No
[2020-02-14] MEDS: ACETAMINOPHEN 650 MG/65 ML BOTTLE IV PRN (12:07)
[2020-02-14] MEDS: PIPERACILLIN SODIUM/TAZOBACTAM 2.25 GM in DEXTROSE 5% IN WATER 50 ML IV SCH ×2 (12:08→18:29)
[2020-02-14] MEDS: SENNOSIDES/DOCUSATE SODIUM 1 TAB TABLET PO SCH (20:06)
[2020-02-14] MEDS: QUEtiapine 25 MG TABLET PO SCH (20:07)
[2020-02-14] MEDS: QUEtiapine 100 MG TABLET PO SCH (20:07)
[2020-02-14] MEDS ORDERED: QUETIAPINE PO SCH (21:00)
[2020-02-15] MEDS: PIPERACILLIN SODIUM/TAZOBACTAM 2.25 GM in DEXTROSE 5% IN WATER 50 ML IV SCH ×4 (00:12→18:05)
[2020-02-15] MEDS: 0.9 % SODIUM CHLORIDE 10 ML SYRINGE IV SCH ×3 (05:38→20:05)
[2020-02-15 06:41] LABS: Hematocrit 27.9 % (34.1-44.9); Mean Cell Volume 94.3 fL (80.0-100.0); Mean Corpuscular HGB Conc 32.3 g/dL (31.0-36.0); Mean Platelet Volume 11.3 fL (7.4-10.4); Platelet Count 468 K/mcL (140-440); RBC 2.96 M/mcL (3.59-5.38); Red Cell Distribution Width 20.3 % (11.5-14.5); WBC 10.3 K/mcL (4.50-11.00)
[2020-02-15 06:58] LABS: ALT/SGPT 14 U/l (0-40); AST/SGOT 37 U/l (0-37); Albumin 2.4 gm/dL (3.2-5.2); Albumin/Globulin Ratio 0.7 (1.0-2.3); Alkaline Phosphatase 75 U/L (39-117); Bilirubin,Direct 0.2 mg/dL (0.0-0.3); Bilirubin,Total 0.7 mg/dL (0.0-1.0); Blood Urea Nitrogen 22 mg/dl (8-23); Calcium 7.8 mg/dl (8.6-10.4); Carbon Dioxide 17 mmol/L (22-30); Chloride 103 mmol/L (96-108); Globulin 3.3 gm/dL (2.2-3.7); Glomerular Filtration Rate 71; Glucose 109 mg/dL (70-105); Lactate Dehydrogenase 355 U/L (94-250); Phosphorous 1.5 mg/dL (2.7-4.5); Triglycerides 94 mg/dl (<150)
[2020-02-15] MEDS: OMEPRAZOLE 20 MG CAPSULE PO SCH (07:19)
[2020-02-15] MEDS: 0.9 % SODIUM CHLORIDE 1,000 ML IV SCH ×2 (07:19→11:01)
[2020-02-15] MEDS: LEVOTHYROXINE 50 MCG TABLET PO SCH (07:19)
[2020-02-15 09:24] LABS: Anisocytosis 1+ (NONE SEEN); Band Neutrophils % 5 % (0-10); Eosinophils % (Manual) 4 % (0-7); Lymphocytes % 7 % (15-49); Macrocytosis 1+ (NONE SEEN); Metamyelocytes % 2 % (0-0); Monocytes % (Manual) 5 % (1-12); Myelocytes % 2 % (0-0); Nucleated Red Blood Cells 7 % (0-0); Platelet Estimate NORMAL (NORMAL); Polychromasia 2+ (NONE SEEN); RBC Morphology ABNORM (NORMAL); Segmented Neutrophils % 75 % (38-78)
[2020-02-15] MEDS: PRAMIPEXOLE 1 MG TABLET PO SCH ×3 (09:44→20:03)
[2020-02-15] MEDS: HEPARIN 5,000 UNIT/ML VIAL SQ SCH ×2 (09:44→20:03)
[2020-02-15] MEDS: FERROUS SULFATE 325 MG TABLET PO SCH (09:44)
--- NOTE | 2020-02-15 09:44 | XRay Report ---
CLINICAL INFORMATION: Follow-up infiltrates COMPARISON: 02/13/2020 FINDINGS: Moderate hiatal hernia again noted. The heart is moderately enlarged, but stable.. Tortuous thoracic aorta is seen - as before. Pulmonary vasculature is normal for technique. Moderate patchy infiltrates have developed in the right mid/ lower lung more vague moderate size infiltrate developing left mid and lower lung. Small right pleural effusion noted. IMPRESSION: Moderate bilateral mid and lower lung infiltrates and small right pleural effusion. Suspect aspiration. Interpreted and Authenticated by: Edwardo Renee 02/15/20
[2020-02-15] MEDS: ACETAMINOPHEN 650 MG/65 ML BOTTLE IV PRN ×2 (09:45→18:05)
[2020-02-15] MEDS: DOCUSATE SODIUM 100 MG CAPSULE PO SCH ×2 (10:03→20:04)
--- NOTE | 2020-02-15 10:25 | Internal Med Progress Note ---
SUBJECTIVE Subjective Patient information: Note initiated : 02/15/20 at 10:18 am Service Date, if different from initiated Date: [] Patient: Jazmin Hooker a 79 y/o F admitted on 02/13/20 for SOB, fever. Chief Complaint: Ms. Hooker is a 79 year old F with a history of hypertension/bipolar disorder who was recently discharged on February 09 following right hip fracture/right hip hemiarthroplasty. Patient was recovering well and was in her baseline state of health until last night. She woke up around 2 to use the bathroom following which her found that she was difficult to arouse this morning. She is also increasingly short of breath/coughing and fever. She is brought into the ER for evaluation. Initial work-up was consistent with severe hypoxic story failure requiring 6 L oxygen/multifocal chest infiltrates on CT angiogram chest and elevated creatinine 2. Hospital service was consulted in light of hypoxic respiratory failure/multifocal pneumonia and acute renal failure. At the time of my evaluation patient is accompanied with her . She is able to answer most of the question. She is markedly short of breath breathing at over 35 to 40-minute. She is currently on 6 days oxygen and unable to talk in full sentences. She denies diarrhea, bloody stool, dysuria, lightheadedness or dizziness. She denies lower extremity swelling/bleeding. She denies changes in medications, trauma or fall 02/13-patient doing a lot better since admission. Currently on full dose oxygen. Alert oriented respond to commands. No telemetry events other than persistent tachycardia at 110 however respiratory rate improved to mid 20s. T-max 100.1. Hemoglobin down from 8.1-7.1. 2 units blood transfusion today. Heparin held. Creatinine down to 1.5 from 2, BUN improving. Platelets 103. ST eval today. All meals on on chair to prevent further aspiration. 02/14-patient seen in ICU. Persistent tachycardia on 120 however much improved respiratory status. Sitting on chair eating breakfast. Now on 2 L oxygen. Interval imaging unchanged with bilateral mid and lower lobe infiltrates consistent with aspiration. Maintain aspiration precautions. Continue dysphagia diet. White count 10.3. T-max 101. Hemoglobin improved from 7.1-9 following during his transfusion. Renal failure resolved with creatinine down from two 2->0.8, lower IV fluids to 40 cc an hour Constitutional Vitals: Vital Signs Temp Pulse Resp BP Pulse Ox 99.9 F H 107 H 19 137/62 94 02/15/20 10:01 02/15/20 10:01 02/15/20 10:01 02/15/20 10:01 02/15/20 10:01 Period Temp Pulse Resp BP Sys/Henning Pulse Ox Last 24 Hr 99.0 F-101.3 F 81-121 16-31 107-160/49-122 85-98 Intake and Output 02/14/20 02/15/20 02/15/20 21:59 05:59 13:59 Intake Total 2252 150 1050 Output Total 930 320 150 Balance 1322 -170 900 Weight 67.812 kg Alert and oriented on 2 L oxygen Tachycardia telemetry Minimal anxiety Bunch is draining clear urine Intake & Output: Intake & Output 02/14/20 02/15/20 02/15/20 21:59 05:59 13:59 Intake Total 2252 150 1050 Output Total 930 320 150 Balance 1322 -170 900 Weight 67.812 kg Intake: IV 1047 50 1050 Sodium Chloride 0.9% 1,000 ml @ 997 1000 100 mls/hr IV .Q10H [facility] Rx#: [id number] Zosyn 2.25 gm In Dextrose 5% in 50 50 50 Water 50 ml @ 100 mls/hr IV Q6H [facility] Rx#:[id number] Oral 880 100 Blood Product 325 Output: Urine Catheter Amount 930 320 150 Other: Meal Dinner Percent of Meal Consumed 25% Feeding Ability Independent Urine Appearance Clear Clear Uretheral (Bunch) Clear Clear Urine Color Dark Yellow Dark Yellow Uretheral (Bunch) Dark Yellow Dark Yellow Urine Odor Normal Stool Size Large Stool Color Brown Stool Consistency Soft # Bowel Movements 1 OBJ DATA Labs CBC & Chem 7: 02/15/20 05:20 02/15/20 05:20 Labs: Abnormal Lab Results 02/15/20 02/15/20 02/14/20 05:20 05:20 05:05 RBC 2.96 L Hgb 9.0 L Hct 27.9 L MCV MCHC RDW 20.3 H Plt Count 468 H MPV 11.3 H Gran % Lymph % (Auto) Gran # Lymph # (Auto) Band Neutrophils % Lymphocytes % 7 L Metamyelocytes % 2 H Myelocytes % 2 H Nucleated RBCs 7 H RBC Morphology Abnorm A Polychromasia 2+ A Hypochromasia Anisocytosis 1+ A Macrocytosis 1+ A D-Dimer Sodium 132 L Carbon Dioxide 17 L 17 L BUN 32 H Creatinine 1.5 H Glucose 109 H Calcium 7.8 L 7.8 L Phosphorus 1.5 L Magnesium 2.7 H AST 40 H Lactate Dehydrogenase 355 H Troponin T Total Protein 5.7 L 5.3 L Albumin 2.4 L 2.4 L Albumin/Globulin Ratio 0.7 L 0.8 L 02/14/20 02/13/20 02/13/20 05:05 20:10 16:48 RBC 2.28 L Hgb 7.1 L Hct 23.9 L MCV 104.8 H MCHC 29.7 L RDW 22.5 H Plt Count MPV 11.2 H Gran % Lymph % (Auto) Gran # Lymph # (Auto) Band Neutrophils % 45 H Lymphocytes % 12 L Metamyelocytes % Myelocytes % Nucleated RBCs RBC Morphology Abnorm A Polychromasia Occ A Hypochromasia 1+ A Anisocytosis 3+ A Macrocytosis 1+ A D-Dimer Sodium Carbon Dioxide BUN Creatinine Glucose Calcium Phosphorus Magnesium AST Lactate Dehydrogenase Troponin T 0.06 H* 0.07 H* Total Protein Albumin Albumin/Globulin Ratio 02/13/20 02/13/20 02/13/20 16:48 16:48 16:48 RBC 2.64 L Hgb 8.1 L Hct 27.1 L MCV 102.7 H MCHC 29.9 L RDW 22.4 H Plt Count 482 H MPV 11.5 H Gran % 88.6 H Lymph % (Auto) 7.2 L Gran # 8.05 H Lymph # (Auto) 0.65 L Band Neutrophils % Lymphocytes % Metamyelocytes % Myelocytes % Nucleated RBCs RBC Morphology Polychromasia Hypochromasia Anisocytosis Macrocytosis D-Dimer 4.95 H Sodium 132 L Carbon Dioxide 19 L BUN 32 H Creatinine 2.0 H Glucose 118 H Calcium 8.3 L Phosphorus Magnesium AST Lactate Dehydrogenase Troponin T Total Protein 5.7 L Albumin 2.6 L Albumin/Globulin Ratio 0.8 L Meds: Medications Acetaminophen (Tylenol) 650 mg PO Q4-6HP PRN; Protocol PRN Reason: Per Pain Protocol/Fever > 101 Hydrocodone Bitart/Acetaminophen ([place] 7.5/325mg) 1 - 2 tab PO Q4HP PRN; Protocol PRN Reason: Per Pain Protocol Bisacodyl (Dulcolax) 10 mg [place] Q2-3DAYS PRN PRN Reason: Constipation Docusate Sodium (Colace) 100 mg PO BID [facility] Last Admin: 02/15/20 10:03 Dose: Not Given Documented by: Ferrous Sulfate (Ferrous Sulfate) 325 mg PO QDAY [facility] Last Admin: 02/15/20 09:44 Dose: 325 mg Documented by: Heparin Sodium (Porcine) (Heparin) 5,000 unit SQ Q12 [facility] Last Admin: 02/15/20 09:44 Dose: 5,000 unit Documented by: Sodium Chloride (Sodium Chloride 0.9%) 1,000 mls @ 100 mls/hr IV .Q10H [facility] Last Admin: 02/15/20 07:19 Dose: 100 mls/hr Documented by: Acetaminophen (Ofirmev) 650 mg in 65 mls @ 130 mls/hr IV Q6HP PRN; Protocol PRN Reason: Per Pain Protocol/Fever > 101 Last Admin: 02/15/20 09:45 Dose: 130 mls/hr Documented by: Magnesium Sulfate (Magnesium Sulfate) 2 gm in 50 mls @ 50 mls/hr IV UD PRN PRN Reason: MG = or < 1.7 Piperacillin Sod/Tazobactam (Sod 2.25 gm/ Dextrose) 50 mls @ 100 mls/hr IV Q6H [facility] Last Infusion: 02/15/20 06:15 Dose: Infused Documented by: Levothyroxine Sodium (Synthroid) 50 mcg PO QAMAC [facility] Last Admin: 02/15/20 07:19 Dose: 50 mcg Documented by: Melatonin (Melatonin 3mg Tablet) 3 mg PO HSP PRN PRN Reason: Insomnia Last Admin: 02/14/20 20:07 Dose: 3 mg Documented by: Omeprazole (Prilosec) 20 mg PO ACB [facility] Last Admin: 02/15/20 07:19 Dose: 20 mg Documented by: Ondansetron HCl (Zofran Odt) 4 mg SL Q4-6HP PRN; Protocol PRN Reason: Nausea And Vomiting Ondansetron HCl (Zofran) 4 mg IV Q4-6HP PRN; Protocol PRN Reason: Nausea And Vomiting Polyethylene Glycol (Miralax) 17 gm PO DAILYP PRN PRN Reason: Constipation Potassium Chloride (Klor-Con) 40 meq PO DAILYP PRN PRN Reason: K+ < 3.5 Pramipexole Dihydrochloride (Mirapex) 1 mg PO TID [facility] Last Admin: 02/15/20 09:44 Dose: 1 mg Documented by: Quetiapine Fumarate (Seroquel) 400 mg PO [facility] Last Admin: 02/14/20 20:07 Dose: 400 mg Documented by: Quetiapine Fumarate (Seroquel) 50 mg PO [facility] Last Admin: 02/14/20 20:07 Dose: 50 mg Documented by: Senna/Docusate Sodium (Senna Plus Tablet) 1 tab PO [facility] Last Admin: 02/14/20 20:06 Dose: Not Given Documented by: Sodium Chloride (Saline Flush) 10 ml IV Q8 [facility] Last Admin: 02/15/20 05:38 Dose: 10 ml Documented by: A/P Narrative A/P Narrative: * Acute hypoxic respiratory failure secondary to multifocal pneumonia. Clinically improved now requiring only 2 L oxygen. Continue weaning as tolerated * Multifocal pneumonia likely aspiration in the setting of hiatal hernia. Co ntinue dysphagia diet/aspiration precautions/antibiotic coverage * Acute renal failure - secondary to volume depletion. Resolved with crystalloids. Creatinine down from 2->0.8 * Anemia secondary to recent surgery/blood loss. Hemoglobin improved to 9 following doing his blood transfusion * History of hypertension restart home dose losartan * Hypothyroidism continue thyroxine * History of bipolar disorder continue quetiapine * Restless leg syndrome continue pramipexole * GERD continue PPI * Full code * Prophylaxis SCDs Plan * Wean oxygen as tolerated * Antibiotic coverage * Diet per ST * Continue aspiration precaution * Pre-existing medical condition management on home medications Time Spent With Patient Time: Total time spent is greater than 50% in coordination of care (as documented) at patient's floor/unit and/or counseling patient: QUALITY Stroke Symptom Onset Unknown: No VTE Deep Vein Thrombosis/Pulmonary Embolism Present on Admission: No
[2020-02-15] MEDS: LOSARTAN 50 MG TABLET PO SCH (11:02)
--- NOTE | 2020-02-15 13:29 | Internal Med Progress Note ---
SUBJECTIVE Subjective Patient information: Note initiated : 02/15/20 at 1:22 pm Service Date, if different from initiated Date: [] Patient: Jazmin Hooker a 79 y/o F admitted on 02/13/20 for SOB, fever. Chief Complaint: [] Interval history: Ms. Hooker is a 79 year old F with a history of hypertension/bipolar disorder who was recently discharged on February 09 following right hip fracture/right hip hemiarthroplasty. Patient was recovering well and was in her baseline state of health until last night. She woke up around 2 to use the bathroom following which her found that she was difficult to arouse this morning. She is also increasingly short of breath/coughing and fever. She is brought into the ER for evaluation. Initial work-up was consistent with severe hypoxic story failure requiring 6 L oxygen/multifocal chest infiltrates on CT angiogram chest and elevated creatinine 2. Hospital service was consulted in light of hypoxic respiratory failure/multifocal pneumonia and acute renal failure. At the time of my evaluation patient is accompanied with her . She is able to answer most of the question. She is markedly short of breath breathing at over 35 to 40-minute. She is currently on 6 days oxygen and unable to talk in full sentences. She denies diarrhea, bloody stool, dysuria, lightheadedness or dizziness. She denies lower extremity swelling/bleeding. She denies changes in medications, trauma or fall 02/13-patient doing a lot better since admission. Currently on full dose oxygen. Alert oriented respond to commands. No telemetry events other than persistent tachycardia at 110 however respiratory rate improved to mid 20s. T-max 100.1. Hemoglobin down from 8.1-7.1. 2 units blood transfusion today. Heparin held. Creatinine down to 1.5 from 2, BUN improving. Platelets 103. ST eval today. All meals on on chair to prevent further aspiration. 02/14-patient seen in ICU. Persistent tachycardia on 120 however much improved respiratory status. Sitting on chair eating breakfast. Now on 2 L oxygen. Interval imaging unchanged with bilateral mid and lower lobe infiltrates consistent with aspiration. Maintain aspiration precautions. Continue dysphagia diet. White count 10.3. T-max 101. Hemoglobin improved from 7.1-9 following during his transfusion. Renal failure resolved with creatinine down from two 2->0.8, lower IV fluids to 40 cc an hour 02/15 Constitutional Vitals: Vital Signs Temp Pulse Resp BP Pulse Ox 98.7 F 103 H 19 129/61 93 02/15/20 12:06 02/15/20 12:06 02/15/20 12:06 02/15/20 11:01 02/15/20 12:06 Period Temp Pulse Resp BP Sys/Henning Pulse Ox Last 24 Hr 98.7 F-101.0 F 81-121 16-31 107-160/56-122 85-98 Intake and Output 02/14/20 02/15/20 02/15/20 21:59 05:59 13:59 Intake Total 2252 150 1523 Output Total 930 320 330 Balance 1322 -170 1193 Weight 67.812 kg Intake & Output: Intake & Output 02/14/20 02/15/20 02/15/20 21:59 05:59 13:59 Intake Total 2252 150 1523 Output Total 930 320 330 Balance 1322 -170 1193 Weight 67.812 kg Intake: IV 1047 50 1283 Sodium Chloride 0.9% 1,000 ml @ 997 1118 100 mls/hr IV .Q10H [facility] Rx#: [id number] Zosyn 2.25 gm In Dextrose 5% in 50 50 100 Water 50 ml @ 100 mls/hr IV Q6H [facility] Rx#:[id number] Oral 880 100 240 Blood Product 325 Output: Urine Catheter Amount 930 320 330 Other: Meal Dinner Breakfast Percent of Meal Consumed 25% 50% Feeding Ability Independent Urine Appearance Clear Clear Clear Uretheral (Bunch) Clear Clear Clear Urine Color Dark Yellow Dark Yellow Bright Yellow Uretheral (Bunch) Dark Yellow Dark Yellow Dark Yellow Urine Odor Normal Normal Stool Size Large Stool Color Brown Stool Consistency Soft # Bowel Movements 1 Exam: General: Alert, Awake, No acute Distress Eyes/N/T: EOMI, Head/Neck: neck supple, CV: RRR, No murmurs, Pulm: Clear b/l, no wheezing/rhonchi/rales Abd: soft, nontender, +BS x4 Ext: no clubbing/cyanosis/edema Neuro: Alert, no focal deficits, moves all extremities, Skin: warm/dry OBJ DATA Labs CBC & Chem 7: 02/15/20 05:20 02/15/20 05:20 Labs: Abnormal Lab Results 02/15/20 02/15/20 02/14/20 05:20 05:20 05:05 RBC 2.96 L Hgb 9.0 L Hct 27.9 L MCV MCHC RDW 20.3 H Plt Count 468 H MPV 11.3 H Gran % Lymph % (Auto) Gran # Lymph # (Auto) Band Neutrophils % Lymphocytes % 7 L Metamyelocytes % 2 H Myelocytes % 2 H Nucleated RBCs 7 H RBC Morphology Abnorm A Polychromasia 2+ A Hypochromasia Anisocytosis 1+ A Macrocytosis 1+ A D-Dimer Sodium 132 L Carbon Dioxide 17 L 17 L BUN 32 H Creatinine 1.5 H Glucose 109 H Calcium 7.8 L 7.8 L Phosphorus 1.5 L Magnesium 2.7 H AST 40 H Lactate Dehydrogenase 355 H Troponin T Total Protein 5.7 L 5.3 L Albumin 2.4 L 2.4 L Albumin/Globulin Ratio 0.7 L 0.8 L 02/14/20 02/13/20 02/13/20 05:05 20:10 16:48 RBC 2.28 L Hgb 7.1 L Hct 23.9 L MCV 104.8 H MCHC 29.7 L RDW 22.5 H Plt Count MPV 11.2 H Gran % Lymph % (Auto) Gran # Lymph # (Auto) Band Neutrophils % 45 H Lymphocytes % 12 L Metamyelocytes % Myelocytes % Nucleated RBCs RBC Morphology Abnorm A Polychromasia Occ A Hypochromasia 1+ A Anisocytosis 3+ A Macrocytosis 1+ A D-Dimer Sodium Carbon Dioxide BUN Creatinine Glucose Calcium Phosphorus Magnesium AST Lactate Dehydrogenase Troponin T 0.06 H* 0.07 H* Total Protein Albumin Albumin/Globulin Ratio 02/13/20 02/13/20 02/13/20 16:48 16:48 16:48 RBC 2.64 L Hgb 8.1 L Hct 27.1 L MCV 102.7 H MCHC 29.9 L RDW 22.4 H Plt Count 482 H MPV 11.5 H Gran % 88.6 H Lymph % (Auto) 7.2 L Gran # 8.05 H Lymph # (Auto) 0.65 L Band Neutrophils % Lymphocytes % Metamyelocytes % Myelocytes % Nucleated RBCs RBC Morphology Polychromasia Hypochromasia Anisocytosis Macrocytosis D-Dimer 4.95 H Sodium 132 L Carbon Dioxide 19 L BUN 32 H Creatinine 2.0 H Glucose 118 H Calcium 8.3 L Phosphorus Magnesium AST Lactate Dehydrogenase Troponin T Total Protein 5.7 L Albumin 2.6 L Albumin/Globulin Ratio 0.8 L Meds: Medications Acetaminophen (Tylenol) 650 mg PO Q4-6HP PRN; Protocol PRN Reason: Per Pain Protocol/Fever > 101 Hydrocodone Bitart/Acetaminophen ([place] 7.5/325mg) 1 - 2 tab PO Q4HP PRN; Protocol PRN Reason: Per Pain Protocol Bisacodyl (Dulcolax) 10 mg [place] Q2-3DAYS PRN PRN Reason: Constipation Docusate Sodium (Colace) 100 mg PO BID [facility] Last Admin: 02/15/20 10:03 Dose: Not Given Documented by: Ferrous Sulfate (Ferrous Sulfate) 325 mg PO QDAY [facility] Last Admin: 02/15/20 09:44 Dose: 325 mg Documented by: Heparin Sodium (Porcine) (Heparin) 5,000 unit SQ Q12 [facility] Last Admin: 02/15/20 09:44 Dose: 5,000 unit Documented by: Acetaminophen (Ofirmev) 650 mg in 65 mls @ 130 mls/hr IV Q6HP PRN; Protocol PRN Reason: Per Pain Protocol/Fever > 101 Last Infusion: 02/15/20 10:18 Dose: Infused Documented by: Magnesium Sulfate (Magnesium Sulfate) 2 gm in 50 mls @ 50 mls/hr IV UD PRN PRN Reason: MG = or < 1.7 Piperacillin Sod/Tazobactam (Sod 2.25 gm/ Dextrose) 50 mls @ 100 mls/hr IV Q6H [facility] Last Infusion: 02/15/20 12:10 Dose: Infused Documented by: Sodium Chloride (Sodium Chloride 0.9%) 1,000 mls @ 40 mls/hr IV .Q24H [facility] Last Admin: 02/15/20 11:01 Dose: 40 mls/hr Documented by: Levothyroxine Sodium (Synthroid) 50 mcg PO QAMAC [facility] Last Admin: 02/15/20 07:19 Dose: 50 mcg Documented by: Losartan Potassium (Cozaar) 50 mg PO DAILY [facility] Last Admin: 02/15/20 11:02 Dose: 50 mg Documented by: Melatonin (Melatonin 3mg Tablet) 3 mg PO HSP PRN PRN Reason: Insomnia Last Admin: 02/14/20 20:07 Dose: 3 mg Documented by: Omeprazole (Prilosec) 20 mg PO ACB [facility] Last Admin: 02/15/20 07:19 Dose: 20 mg Documented by: Ondansetron HCl (Zofran Odt) 4 mg SL Q4-6HP PRN; Protocol PRN Reason: Nausea And Vomiting Ondansetron HCl (Zofran) 4 mg IV Q4-6HP PRN; Protocol PRN Reason: Nausea And Vomiting Polyethylene Glycol (Miralax) 17 gm PO DAILYP PRN PRN Reason: Constipation Potassium Chloride (Klor-Con) 40 meq PO DAILYP PRN PRN Reason: K+ < 3.5 Pramipexole Dihydrochloride (Mirapex) 1 mg PO TID [facility] Last Admin: 02/15/20 09:44 Dose: 1 mg Documented by: Quetiapine Fumarate (Seroquel) 400 mg PO [facility] Last Admin: 02/14/20 20:07 Dose: 400 mg Documented by: Quetiapine Fumarate (Seroquel) 50 mg PO [facility] Last Admin: 02/14/20 20:07 Dose: 50 mg Documented by: Senna/Docusate Sodium (Senna Plus Tablet) 1 tab PO [facility] Last Admin: 02/14/20 20:06 Dose: Not Given Documented by: Sodium Chloride (Saline Flush) 10 ml IV Q8 [facility] Last Admin: 02/15/20 05:38 Dose: 10 ml Documented by: A/P Narrative A/P Narrative: A: *Acute hypoxic respiratory failure: 2/2 multifocal pneumonia -Clinically improved -now on 2L oxygen. *Multifocal pneumonia likely aspiration in the setting of hiatal hernia *MANUELITO: 2/2 volume depletion -resolved *recent Right hip fracture: s/p ORIF (02/07) *Hypothyroidism: *HTN/HLD: *GERD: *Anemia, chronic: acute component post op *Depression/anxiety/bipolar: * P: -Continue dysphagia diet/aspiration precautions/antibiotic coverage(deescalate) -wean O2 -diet per ST -IS -cont home psych meds -cont home ARB -CM for placement -f/u with Gen Surg for Hiatal hernia and concern for causing aspiration -ppx: heparin Time Spent With Patient Time: Total time spent is greater than 50% in coordination of care (as documented) at patient's floor/unit and/or counseling patient: QUALITY Stroke Symptom Onset Unknown: No VTE Deep Vein Thrombosis/Pulmonary Embolism Present on Admission: No
[2020-02-15] MEDS ORDERED: NEUTRA PHOS 1 PACKET PO ONE (14:19)
[2020-02-15] MEDS: MELATONIN 3 MG TABLET PO PRN (20:02)
[2020-02-15] MEDS: QUEtiapine 100 MG TABLET PO SCH (20:04)
[2020-02-15] MEDS: QUEtiapine 25 MG TABLET PO SCH (20:04)
[2020-02-15] MEDS: SENNOSIDES/DOCUSATE SODIUM 1 TAB TABLET PO SCH (20:04)
[2020-02-16] MEDS: PIPERACILLIN SODIUM/TAZOBACTAM 2.25 GM in DEXTROSE 5% IN WATER 50 ML IV SCH ×4 (01:49→17:16)
[2020-02-16] MEDS: HYDROCODONE/APAP 7.5/325MG TABLET PO PRN ×2 (02:20→07:01)
[2020-02-16] MEDS: 0.9 % SODIUM CHLORIDE 1,000 ML IV SCH ×2 (04:32→09:29)
[2020-02-16] MEDS: 0.9 % SODIUM CHLORIDE 10 ML SYRINGE IV SCH ×3 (04:32→20:44)
[2020-02-16 06:43] LABS: Hematocrit 27.8 % (34.1-44.9); Hemoglobin 8.9 g/dL (11.2-15.7); Mean Cell Volume 94.6 fL (80.0-100.0); Mean Platelet Volume 11.2 fL (7.4-10.4); Platelet Count 490 K/mcL (140-440); RBC 2.94 M/mcL (3.59-5.38); Red Cell Distribution Width 20.1 % (11.5-14.5); WBC 9.7 K/mcL (4.50-11.00)
[2020-02-16] MEDS: LEVOTHYROXINE 50 MCG TABLET PO SCH (07:01)
[2020-02-16 07:03] LABS: ALT/SGPT 14 U/l (0-40); AST/SGOT 33 U/l (0-37); Albumin 2.5 gm/dL (3.2-5.2); Albumin/Globulin Ratio 0.7 (1.0-2.3); Alkaline Phosphatase 166 U/L (39-117); Bilirubin,Total 0.4 mg/dL (0.0-1.0); Blood Urea Nitrogen 10 mg/dl (8-23); Calcium 7.9 mg/dl (8.6-10.4); Carbon Dioxide 19 mmol/L (22-30); Chloride 103 mmol/L (96-108); Globulin 3.5 gm/dL (2.2-3.7); Glucose 107 mg/dL (70-105); Lactate Dehydrogenase 369 U/L (94-250); Triglycerides 105 mg/dl (<150); Uric Acid 2.7 mg/dL (2.5-8.0)
[2020-02-16] MEDS: OMEPRAZOLE 20 MG CAPSULE PO SCH (07:03)
[2020-02-16 07:05] LABS: Bilirubin,Direct < 0.2 mg/dL (0.0-0.3); Glomerular Filtration Rate 93; Phosphorous 1.5 mg/dL (2.7-4.5)
[2020-02-16] MEDS: DOCUSATE SODIUM 100 MG CAPSULE PO SCH ×2 (07:57→20:40)
[2020-02-16] MEDS: PRAMIPEXOLE 1 MG TABLET PO SCH ×3 (08:14→20:41)
[2020-02-16] MEDS: LOSARTAN 50 MG TABLET PO SCH (08:14)
[2020-02-16] MEDS: HEPARIN 5,000 UNIT/ML VIAL SQ SCH ×2 (08:14→20:42)
[2020-02-16] MEDS: FERROUS SULFATE 325 MG TABLET PO SCH (08:14)
[2020-02-16] MEDS ORDERED: NEUTRA PHOS 1 PACKET PO ONE (08:27)
--- NOTE | 2020-02-16 08:28 | Internal Med Progress Note ---
SUBJECTIVE Subjective Patient information: Note initiated : 02/16/20 at 8:24 am Service Date, if different from initiated Date: [] Patient: Jazmin Hooker a 79 y/o F admitted on 02/13/20 for SOB, fever. Chief Complaint: [] Interval history: Ms. Hooker is a 79 year old F with a history of hypertension/bipolar disorder who was recently discharged on February 09 following right hip fracture/right hip hemiarthroplasty. Patient was recovering well and was in her baseline state of health until last night. She woke up around 2 to use the bathroom following which her found that she was difficult to arouse this morning. She is also increasingly short of breath/coughing and fever. She is brought into the ER for evaluation. Initial work-up was consistent with severe hypoxic story failure requiring 6 L oxygen/multifocal chest infiltrates on CT angiogram chest and elevated creatinine 2. Hospital service was consulted in light of hypoxic respiratory failure/multifocal pneumonia and acute renal failure. At the time of my evaluation patient is accompanied with her . She is able to answer most of the question. She is markedly short of breath breathing at over 35 to 40-minute. She is currently on 6 days oxygen and unable to talk in full sentences. She denies diarrhea, bloody stool, dysuria, lightheadedness or dizziness. She denies lower extremity swelling/bleeding. She denies changes in medications, trauma or fall 02/13-patient doing a lot better since admission. Currently on full dose oxygen. Alert oriented respond to commands. No telemetry events other than persistent tachycardia at 110 however respiratory rate improved to mid 20s. T-max 100.1. Hemoglobin down from 8.1-7.1. 2 units blood transfusion today. Heparin held. Creatinine down to 1.5 from 2, BUN improving. Platelets 103. ST eval today. All meals on on chair to prevent further aspiration. 02/14-patient seen in ICU. Persistent tachycardia on 120 however much improved respiratory status. Sitting on chair eating breakfast. Now on 2 L oxygen. Interval imaging unchanged with bilateral mid and lower lobe infiltrates consistent with aspiration. Maintain aspiration precautions. Continue dysphagia diet. White count 10.3. T-max 101. Hemoglobin improved from 7.1-9 following during his transfusion. Renal failure resolved with creatinine down from two 2->0.8, lower IV fluids to 40 cc an hour 02/15 Doing better. On room air this morning. She does have a cough with productive sputum. As of breath is better although she still gets winded with activity. Review of Systems: denies headache/fever/chills/nausea/vomiting/chest or abdominal pain/diarrhea. Otherwise see above. Constitutional Vitals: Vital Signs Temp Pulse Resp BP Pulse Ox 99.1 F H 110 H 32 H 141/111 92 02/16/20 08:01 02/16/20 08:01 02/16/20 08:01 02/16/20 08:01 02/16/20 08:01 Period Temp Pulse Resp BP Sys/Henning Pulse Ox Last 24 Hr 98.3 F-100.9 F 11-118 16-32 122-173/59-111 79-100 Intake and Output 02/15/20 02/16/20 02/16/20 21:59 05:59 13:59 Intake Total 695 1176 50 Output Total 380 175 Balance 315 1001 50 Weight 70.534 kg Intake & Output: Intake & Output 02/15/20 02/16/20 02/16/20 21:59 05:59 13:59 Intake Total 695 1176 50 Output Total 380 175 Balance 315 1001 50 Weight 70.534 kg Intake: IV 115 751 50 Sodium Chloride 0.9% 1,000 ml @ 701 40 mls/hr IV .Q24H [place] Rx#: [id number] Zosyn 2.25 gm In Dextrose 5% in 50 50 50 Water 50 ml @ 100 mls/hr IV Q6H [place] Rx#:[id number] Oral 580 425 Output: Urine Catheter Amount 380 175 Other: Meal Dinner Percent of Meal Consumed 25% Urine Appearance Clear Clear Uretheral (Bunch) Clear Clear Urine Color Dark Yellow Dark Yellow Uretheral (Bunch) Dark Yellow Dark Yellow Stool Size Moderate Stool Color Brown Stool Consistency Soft # Bowel Movements 1 Exam: General: Alert, Awake, No acute Distress Eyes/N/T: EOMI, Head/Neck: neck supple, CV: RRR, No murmurs, Pulm: Clear b/l, no wheezing/rhonchi/rales Abd: soft, nontender, +BS x4 Ext: no clubbing/cyanosis/edema Neuro: Alert, no focal deficits, moves all extremities, Skin: warm/dry OBJ DATA Labs CBC & Chem 7: 02/16/20 05:15 02/16/20 05:15 Labs: Abnormal Lab Results 02/16/20 02/16/20 02/15/20 05:15 05:15 05:20 RBC 2.94 L Hgb 8.9 L Hct 27.8 L MCV MCHC RDW 20.1 H Plt Count 490 H MPV 11.2 H Gran % Lymph % (Auto) Gran # Lymph # (Auto) Band Neutrophils % Lymphocytes % Metamyelocytes % Myelocytes % Nucleated RBCs RBC Morphology Polychromasia Hypochromasia Anisocytosis Macrocytosis D-Dimer Sodium 132 L Carbon Dioxide 19 L 17 L BUN Creatinine 0.5 L Glucose 107 H 109 H Calcium 7.9 L 7.8 L Phosphorus 1.5 L 1.5 L Magnesium AST Alkaline Phosphatase 166 H Lactate Dehydrogenase 369 H 355 H Troponin T Total Protein 5.7 L Albumin 2.5 L 2.4 L Albumin/Globulin Ratio 0.7 L 0.7 L 02/15/20 02/14/20 02/14/20 05:20 05:05 05:05 RBC 2.96 L 2.28 L Hgb 9.0 L 7.1 L Hct 27.9 L 23.9 L MCV 104.8 H MCHC 29.7 L RDW 20.3 H 22.5 H Plt Count 468 H MPV 11.3 H 11.2 H Gran % Lymph % (Auto) Gran # Lymph # (Auto) Band Neutrophils % 45 H Lymphocytes % 7 L 12 L Metamyelocytes % 2 H Myelocytes % 2 H Nucleated RBCs 7 H RBC Morphology Abnorm A Abnorm A Polychromasia 2+ A Occ A Hypochromasia 1+ A Anisocytosis 1+ A 3+ A Macrocytosis 1+ A 1+ A D-Dimer Sodium Carbon Dioxide 17 L BUN 32 H Creatinine 1.5 H Glucose Calcium 7.8 L Phosphorus Magnesium 2.7 H AST 40 H Alkaline Phosphatase Lactate Dehydrogenase Troponin T Total Protein 5.3 L Albumin 2.4 L Albumin/Globulin Ratio 0.8 L 02/13/20 02/13/20 02/13/20 20:10 16:48 16:48 RBC Hgb Hct MCV MCHC RDW Plt Count MPV Gran % Lymph % (Auto) Gran # Lymph # (Auto) Band Neutrophils % Lymphocytes % Metamyelocytes % Myelocytes % Nucleated RBCs RBC Morphology Polychromasia Hypochromasia Anisocytosis Macrocytosis D-Dimer Sodium 132 L Carbon Dioxide 19 L BUN 32 H Creatinine 2.0 H Glucose 118 H Calcium 8.3 L Phosphorus Magnesium AST Alkaline Phosphatase Lactate Dehydrogenase Troponin T 0.06 H* 0.07 H* Total Protein 5.7 L Albumin 2.6 L Albumin/Globulin Ratio 0.8 L 02/13/20 02/13/20 16:48 16:48 RBC 2.64 L Hgb 8.1 L Hct 27.1 L MCV 102.7 H MCHC 29.9 L RDW 22.4 H Plt Count 482 H MPV 11.5 H Gran % 88.6 H Lymph % (Auto) 7.2 L Gran # 8.05 H Lymph # (Auto) 0.65 L Band Neutrophils % Lymphocytes % Metamyelocytes % Myelocytes % Nucleated RBCs RBC Morphology Polychromasia Hypochromasia Anisocytosis Macrocytosis D-Dimer 4.95 H Sodium Carbon Dioxide BUN Creatinine Glucose Calcium Phosphorus Magnesium AST Alkaline Phosphatase Lactate Dehydrogenase Troponin T Total Protein Albumin Albumin/Globulin Ratio Meds: Medications Acetaminophen (Tylenol) 650 mg PO Q4-6HP PRN; Protocol PRN Reason: Per Pain Protocol/Fever > 101 Hydrocodone Bitart/Acetaminophen ([place] 7.5/325mg) 1 - 2 tab PO Q4HP PRN; Protocol PRN Reason: Per Pain Protocol Last Admin: 02/16/20 07:01 Dose: 1 tab Documented by: Bisacodyl (Dulcolax) 10 mg [place] Q2-3DAYS PRN PRN Reason: Constipation Docusate Sodium (Colace) 100 mg PO BID [facility] Last Admin: 02/16/20 07:57 Dose: Not Given Documented by: Ferrous Sulfate (Ferrous Sulfate) 325 mg PO QDAY [facility] Last Admin: 02/16/20 08:14 Dose: 325 mg Documented by: Heparin Sodium (Porcine) (Heparin) 5,000 unit SQ Q12 [facility] Last Admin: 02/16/20 08:14 Dose: 5,000 unit Documented by: Acetaminophen (Ofirmev) 650 mg in 65 mls @ 130 mls/hr IV Q6HP PRN; Protocol PRN Reason: Per Pain Protocol/Fever > 101 Last Infusion: 02/15/20 18:35 Dose: Infused Documented by: Magnesium Sulfate (Magnesium Sulfate) 2 gm in 50 mls @ 50 mls/hr IV UD PRN PRN Reason: MG = or < 1.7 Piperacillin Sod/Tazobactam (Sod 2.25 gm/ Dextrose) 50 mls @ 100 mls/hr IV Q6H [facility] Last Infusion: 02/16/20 06:00 Dose: Infused Documented by: Sodium Chloride (Sodium Chloride 0.9%) 1,000 mls @ 40 mls/hr IV .Q24H [facility] Last Admin: 02/16/20 04:32 Dose: 40 mls/hr Documented by: Levothyroxine Sodium (Synthroid) 50 mcg PO QAMAC [facility] Last Admin: 02/16/20 07:01 Dose: 50 mcg Documented by: Losartan Potassium (Cozaar) 50 mg PO DAILY [facility] Last Admin: 02/16/20 08:14 Dose: 50 mg Documented by: Melatonin (Melatonin 3mg Tablet) 3 mg PO HSP PRN PRN Reason: Insomnia Last Admin: 02/15/20 20:02 Dose: 3 mg Documented by: Omeprazole (Prilosec) 20 mg PO ACB [facility] Last Admin: 02/16/20 07:03 Dose: 20 mg Documented by: Ondansetron HCl (Zofran Odt) 4 mg SL Q4-6HP PRN; Protocol PRN Reason: Nausea And Vomiting Ondansetron HCl (Zofran) 4 mg IV Q4-6HP PRN; Protocol PRN Reason: Nausea And Vomiting Polyethylene Glycol (Miralax) 17 gm PO DAILYP PRN PRN Reason: Constipation Potassium Chloride (Klor-Con) 40 meq PO DAILYP PRN PRN Reason: K+ < 3.5 Last Admin: 02/16/20 07:34 Dose: 40 meq Documented by: Pramipexole Dihydrochloride (Mirapex) 1 mg PO TID [facility] Last Admin: 02/16/20 08:14 Dose: 1 mg Documented by: Quetiapine Fumarate (Seroquel) 400 mg PO [facility] Last Admin: 02/15/20 20:04 Dose: 400 mg Documented by: Quetiapine Fumarate (Seroquel) 50 mg PO [facility] Last Admin: 02/15/20 20:04 Dose: 50 mg Documented by: Senna/Docusate Sodium (Senna Plus Tablet) 1 tab PO [facility] Last Admin: 02/15/20 20:04 Dose: Not Given Documented by: Sodium Chloride (Saline Flush) 10 ml IV Q8 [facility] Last Admin: 02/16/20 04:32 Dose: 10 ml Documented by: A/P Narrative A/P Narrative: A: *Acute hypoxic respiratory failure: 2/2 multifocal pneumonia/PNA -Clinically improved -now on room air *Multifocal pneumonia likely aspiration in the setting of hiatal hernia *Oropharyngeal dysphagia, mild: *MANUELITO: 2/2 volume depletion -resolved *recent Right hip fracture: s/p ORIF (02/07) *Hypothyroidism: *HTN/HLD: *GERD: *Anemia, chronic: acute component post op *Depression/anxiety/bipolar: * P: -Continue dysphagia diet/aspiration precautions/antibiotic coverage(deescalate) -wean O2 -diet per ST -IS -cont home psych meds -cont home ARB -CM for placement -f/u with Gen Surg for Hiatal hernia and concern for causing aspiration -ppx: heparin Time Spent With Patient Time: Total time spent is greater than 50% in coordination of care (as documented) at patient's floor/unit and/or counseling patient: QUALITY Stroke Symptom Onset Unknown: No VTE Deep Vein Thrombosis/Pulmonary Embolism Present on Admission: No
[2020-02-16] MEDS ORDERED: IPRATROPIUM/ALBUTEROL 3 ML AMPUL.NEB NEB PRN (09:17)
[2020-02-16] MEDS ORDERED: FUROSEMIDE 20 MG/2 ML VIAL IV ONE (09:18)
[2020-02-16] MEDS ORDERED: ALBUMIN HUMAN 12.5 GM/50 ML BAG IV ONE (09:18)
[2020-02-16 09:32] LABS: Anisocytosis 1+ (NONE SEEN); Band Neutrophils % 8 % (0-10); Basophils % (Manual) 1 % (0-2); Eosinophils % (Manual) 3 % (0-7); Lymphocytes % 6 % (15-49); Metamyelocytes % 1 % (0-0); Monocytes % (Manual) 4 % (1-12); Myelocytes % 1 % (0-0); Nucleated Red Blood Cells 1 % (0-0); Platelet Estimate NORMAL (NORMAL); Polychromasia FEW (NONE SEEN); RBC Morphology ABNORM (NORMAL); Segmented Neutrophils % 76 % (38-78)
[2020-02-16] MEDS ORDERED: MAGNESIUM SULFATE 2 GM/50 ML BAG IV PRN (09:48)
[2020-02-16] MEDS ORDERED: BISACODYL 10 MG SUPP.RECT PR PRN (09:48)
[2020-02-16] MEDS ORDERED: ACETAMINOPHEN 650 MG/65 ML BOTTLE IV PRN (09:48)
[2020-02-16] MEDS ORDERED: HYDROCODONE/APAP 7.5/325MG TABLET PO PRN (09:48)
[2020-02-16] MEDS ORDERED: POLYETHYLENE GLYCOL 3350 17 GM PACKET PO PRN (09:48)
[2020-02-16] MEDS ORDERED: ACETAMINOPHEN 325 MG TABLET PO PRN (09:48)
[2020-02-16] MEDS ORDERED: ONDANSETRON 4 MG/2 ML VIAL IV PRN (09:48)
[2020-02-16] MEDS ORDERED: MELATONIN 3 MG TABLET PO PRN (09:48)
[2020-02-16] MEDS ORDERED: POTASSIUM CHLORIDE 20 MEQ PACKET PO PRN (09:48)
[2020-02-16] MEDS ORDERED: ONDANSETRON 4 MG ODT TABLET SL PRN (09:48)
[2020-02-16] MEDS: IPRATROPIUM/ALBUTEROL 3 ML AMPUL.NEB NEB PRN ×2 (10:36→13:43)
--- NOTE | 2020-02-16 12:06 | Discharge Summary ---
Discharge Provider Provider Patient information: Note initiated : 02/16/20 at 12:04 pm Service Date, if different from initiated Date: [] Patient: Jazmin Hooker 79 y/o F admitted on 02/13/20 for SOB, fever. Chief Complaint: [] Date of admission: 02/13/20 22:57 Discharge date: 02/17/20 Primary care physician: Keila Quintero Consults: 02/13/20 21:47 Consult to Physician [CONS] Stat Comment: Consulting Provider: Yoav Haynes Reason For Exam: Physician to Consult Discharge Meds Discharge Medications Home Medications ezetimibe 10 mg tablet 10 mg PO DAILY #90 tab 05/07/19 [Rx Confirmed 02/13/20 Last Taken Unknown] biotin 10,000 mcg capsule 10,000 mcg PO QDAY 08/23/19 [History Confirmed 02/13/20 Last Taken Unknown] ferrous sulfate 325 mg (65 mg iron) tablet 325 mg PO QDAY tab 09/13/19 [History Confirmed 02/13/20 Last Taken Unknown] oxybutynin chloride 5 mg tablet,extended release 24 hr 5 mg PO QHS tab 09/13/19 [History Confirmed 02/13/20 Last Taken Unknown] pramipexole 1 mg tablet 1 mg PO TID 09/13/19 [History Confirmed 02/13/20 Last Taken Unknown] quetiapine 400 mg tablet 450 mg PO QPM tab 09/13/19 [History Confirmed 02/13/20 Last Taken Unknown] vitamin B complex 1 tab PO QDAY 09/13/19 [History Confirmed 02/13/20 Last Taken Unknown] levothyroxine 50 mcg tablet 50 mcg PO QDAY #90 tab 12/18/19 [Rx Confirmed 02/13/20 Last Taken Unknown] losartan 50 mg tablet See Rx Instructions .ROUTE .COMPLEX #90 tablet 01/04/20 [Rx Confirmed 02/13/20 Last Taken Unknown] hydrocodone-acetaminophen 1 - 2 tab PO Q4HP PRN #50 tab 02/10/20 [Rx Confirmed 02/13/20 Last Taken Unknown] methocarbamol 750 mg PO QID PRN #40 tab 02/10/20 [Rx Confirmed 02/13/20 Last Taken Unknown] omeprazole 20 mg PO QDAY 02/13/20 [History Confirmed 02/13/20 Last Taken Unknown] amoxicillin-pot clavulanate [Augmentin] 1 tab PO Q12H #5 tab 02/16/20 [Rx Last Taken Unknown] Lactobacillus acidophilus 2,000 mmu cells PO BID #40 cap 02/17/20 [Rx Last Taken Unknown] albuterol sulfate 2 puff INHALATION Q6H PRN #8.5 g 02/17/20 [Rx Last Taken Unknown] COURSE Hospital Course Hospital course: Interval history: Ms. Hooker is a 79 year old F with a history of hypertension/bipolar disorder who was recently discharged on February 09 following right hip fracture/right hip hemiarthroplasty. Patient was recovering well and was in her baseline state of health until last night. She woke up around 2 to use the bathroom following which her found that she was difficult to arouse this morning. She is also increasingly short of breath/coughing and fever. She is brought into the ER for evaluation. Initial work-up was consistent with severe hypoxic story failure requiring 6 L oxygen/multifocal chest infiltrates on CT angiogram chest and elevated creatinine 2. Hospital service was consulted in light of hypoxic respiratory failure/multifocal pneumonia and acute renal failure. At the time of my evaluation patient is accompanied with her . She is able to answer most of the question. She is markedly short of breath breathing at over 35 to 40-minute. She is currently on 6 days oxygen and unable to talk in full sentences. She denies diarrhea, bloody stool, dysuria, lightheadedness or dizziness. She denies lower extremity swelling/bleeding. She denies changes in medications, trauma or fall 02/13-patient doing a lot better since admission. Currently on full dose oxygen. Alert oriented respond to commands. No telemetry events other than persistent tachycardia at 110 however respiratory rate improved to mid 20s. T-max 100.1. Hemoglobin down from 8.1-7.1. 2 units blood transfusion today. Heparin held. Creatinine down to 1.5 from 2, BUN improving. Platelets 103. ST eval today. All meals on on chair to prevent further aspiration. 02/14-patient seen in ICU. Persistent tachycardia on 120 however much improved respiratory status. Sitting on chair eating breakfast. Now on 2 L oxygen. Interval imaging unchanged with bilateral mid and lower lobe infiltrates consistent with aspiration. Maintain aspiration precautions. Continue dysphagia diet. White count 10.3. T-max 101. Hemoglobin improved from 7.1-9 f ollowing during his transfusion. Renal failure resolved with creatinine down from two 2->0.8, lower IV fluids to 40 cc an hour 02/15 Doing better. On room air this morning. She does have a cough with productive sputum. As of breath is better although she still gets winded with activity. 02/16 Patient did have asymptomatic tachycardia in the 140s to 160s last night given Lopressor with resolution. EKG with possibly a flutter. She did have notable P waves with some of the complexes but it appeared that the P wave got buried in some of the other QRSs and T waves. She denies any other new complaints. Does have occasional cough. Tolerating dysphagia diet and chest x-ray improved. Patient wanted to go home. She has some edema in her legs. Will give some Lasix and reevaluate her lunch and possible discharge. Patient doing well. Has been ambulating in the hallways on room air and doing well. Desiring to go home. Minded her about the dysphagia diet that she will be on. We will have her follow-up with speech therapy. As well as follow- up with general surgery to evaluate her hiatal hernia as a possible cause for aspiration. A: *Acute hypoxic respiratory failure: 2/2 multifocal pneumonia/PNA -now on room air *Multifocal pneumonia likely aspiration in the setting of hiatal hernia *Oropharyngeal dysphagia, mild: *MANUELITO: 2/2 volume depletion -resolved *recent Right hip fracture: s/p ORIF (02/07) *Hypothyroidism: *HTN/HLD: *GERD: *Anemia, chronic: acute component post op *Depression/anxiety/bipolar: Discharge diagnosis: Hypoxic respiratory failure pneumonia duration acute kidney injury oral pharyngeal dysphasia Secondary discharge diagnosis: Recent fracture hypothyroidism GERD chronic anemia depression anxiety Time Spent with Patient Time attestation: Total time spent providing and/or coordinating discharge services: Time spent: Greater than 30 minutes EXAM Constitutional Vitals: Temp Pulse Resp BP Pulse Ox 99.7 F H 105 H 18 139/89 95 02/16/20 09:18 02/16/20 10:15 02/16/20 10:15 02/16/20 09:18 02/16/20 09:18 Discharge Data Data Completed and Pending Labs on day of discharge: Labs from last 24 hours 02/16/20 02/16/20 02/13/20 05:15 05:15 20:16 WBC 9.7 RBC 2.94 L Hgb 8.9 L Hct 27.8 L MCV 94.6 MCH 30.3 MCHC 32.0 RDW 20.1 H Plt Count 490 H MPV 11.2 H Total Counted 100 Seg Neutrophils % 76 Band Neutrophils % 8 Lymphocytes % 6 L Monocytes % (Manual) 4 Eosinophils % (Manual) 3 Basophils % (Manual) 1 Metamyelocytes % 1 H Myelocytes % 1 H Nucleated RBCs 1 H Platelet Estimate Normal RBC Morphology Abnorm A Polychromasia Few A Anisocytosis 1+ A Sodium 134 Potassium 3.4 Chloride 103 Carbon Dioxide 19 L Anion Gap 12.0 BUN 10 Creatinine 0.5 L GFR Calculation 93 Glucose 107 H Uric Acid 2.7 Calcium 7.9 L Phosphorus 1.5 L Magnesium 2.3 Total Bilirubin 0.4 Direct Bilirubin < 0.2 GGT 12 AST 33 ALT 14 Alkaline Phosphatase 166 H Lactate Dehydrogenase 369 H Total Protein 6.0 Albumin 2.5 L Globulin 3.5 Albumin/Globulin Ratio 0.7 L Triglycerides 105 SARS-CoV-2 (PCR) Not detected Preliminary micro results at discharge 02/15/20 07:13 Blood Culture - Preliminary Blood 02/15/20 07:05 Blood Culture - Preliminary Blood 02/13/20 22:15 Blood Culture - Preliminary Blood 02/13/20 22:20 Blood Culture - Preliminary Blood Discharge Plan Patient/Caregiver Discharge Instructions Activity: increase activity as tolerated Diet: Dysphagia Level 5 Minced & Moist Foods Activity Restrictions/Additional Instructions: Referral to see general surgery 1 to 2 weeks for evaluation of hiatal hernia, concern for causing aspiration. f/u with speech therapy Prescriptions: New amoxicillin-pot clavulanate [Augmentin] 875-125 mg tablet 1 tab PO Q12H Qty: 5 RF: 0 Lactobacillus acidophilus Capsule 2,000 mmu cells PO BID Qty: 40 RF: 0 albuterol sulfate 90 mcg/actuation HFA aerosol inhaler 2 puff INHALATION Q6H PRN (Reason: shortness of breath or wheezing) Qty: 8.5 RF: 0 Continued biotin 10,000 mcg capsule 10,000 mcg PO QDAY RF: 0 vitamin B complex [B Complex-Vitamin B12] Tablet 1 tab PO QDAY RF: 0 ezetimibe 10 mg tablet 10 mg PO DAILY Qty: 90 RF: 2 levothyroxine 50 mcg tablet 50 mcg PO QDAY Qty: 90 RF: 0 losartan 50 mg tablet See Rx Instructions .ROUTE .COMPLEX Qty: 90 RF: 0 oxybutynin chloride 5 mg tablet extended release 24hr 5 mg PO QHS RF: 0 quetiapine [Seroquel] 400 mg tablet 450 mg PO QPM RF: 0 ferrous sulfate 325 mg (65 mg iron) tablet 325 mg PO QDAY RF: 0 pramipexole 1 mg tablet 1 mg PO TID RF: 0 methocarbamol 750 mg Tablet 750 mg PO QID PRN (Reason: Pain) Qty: 40 RF: 0 hydrocodone-acetaminophen 7.5-325 mg Tablet 1 - 2 tab PO Q4HP PRN (Reason: Per Pain Protocol) Qty: 50 RF: 0 omeprazole 40 mg capsule,delayed release(DR/EC) 20 mg PO QDAY RF: 0 Follow Up Plan Follow up with: Keila Quintero ARNP [Primary Care Provider] - Patient Disposition: Home Health Service Prognosis: Fair Rehab Potential: Fair Overall status at discharge: patient is progressing back to baseline Discharge Orders: Discharge Order (Routine); Ordered 02/17/20 Ordered By: Sharif Garner QUALITY VTE Deep Vein Thrombosis/Pulmonary Embolism Present on Admission: No
[2020-02-16] MEDS ORDERED: PHOSPHORUS 250 MG TABLET PO ONE ×2 (13:00)
[2020-02-16] MEDS: BENZOCAINE/MENTHOL 1 LOZENGE PO PRN ×2 (15:11→20:42)
[2020-02-16] MEDS: LACTOBACILLUS 1 CAPSULE PO SCH (20:40)
[2020-02-16] MEDS ORDERED: QUEtiapine 100 MG TABLET PO SCH (21:00)
[2020-02-16] MEDS ORDERED: SENNOSIDES/DOCUSATE SODIUM 1 TAB TABLET PO SCH (21:00)
[2020-02-16] MEDS ORDERED: QUEtiapine 25 MG TABLET PO SCH (21:00)
[2020-02-17] MEDS: PIPERACILLIN SODIUM/TAZOBACTAM 2.25 GM in DEXTROSE 5% IN WATER 50 ML IV SCH ×3 (00:14→13:32)
[2020-02-17] MEDS ORDERED: METOPROLOL TARTRATE 5 MG/5 ML VIAL IV ONE ×2 (00:36→00:44)
[2020-02-17] MEDS ORDERED: METOPROLOL TARTRATE 5 MG/5 ML VIAL IV PRN (00:37)
[2020-02-17] MEDS: 0.9 % SODIUM CHLORIDE 10 ML SYRINGE IV SCH ×2 (05:18→15:09)
[2020-02-17 06:49] LABS: Hematocrit 27.3 % (34.1-44.9); Hemoglobin 8.9 g/dL (11.2-15.7); Mean Cell Volume 91.9 fL (80.0-100.0); Mean Corpuscular HGB Conc 32.6 g/dL (31.0-36.0); Platelet Count 519 K/mcL (140-440); RBC 2.97 M/mcL (3.59-5.38); Red Cell Distribution Width 19.6 % (11.5-14.5); WBC 9.5 K/mcL (4.50-11.00)
[2020-02-17 07:19] LABS: Bilirubin,Direct < 0.2 mg/dL (0.0-0.3); Chloride 101 mmol/L (96-108)
[2020-02-17 07:26] LABS: ALT/SGPT 14 U/l (0-40); AST/SGOT 31 U/l (0-37); Albumin 2.9 gm/dL (3.2-5.2); Albumin/Globulin Ratio 0.9 (1.0-2.3); Alkaline Phosphatase 76 U/L (39-117); Bilirubin,Total 0.4 mg/dL (0.0-1.0); Blood Urea Nitrogen 8 mg/dl (8-23); Calcium 8.3 mg/dl (8.6-10.4); Carbon Dioxide 21 mmol/L (22-30); Globulin 3.4 gm/dL (2.2-3.7); Glomerular Filtration Rate 88; Glucose 116 mg/dL (70-105); Lactate Dehydrogenase 432 U/L (94-250); Phosphorous 1.9 mg/dL (2.7-4.5); Triglycerides 100 mg/dl (<150); Uric Acid 2.8 mg/dL (2.5-8.0)
[2020-02-17] MEDS ORDERED: OMEPRAZOLE 20 MG CAPSULE PO SCH (07:30)
[2020-02-17] MEDS ORDERED: LEVOTHYROXINE 50 MCG TABLET PO SCH (07:30)
--- NOTE | 2020-02-17 07:50 | Internal Med Progress Note ---
SUBJECTIVE Subjective Patient information: Note initiated : 02/17/20 at 7:48 am Service Date, if different from initiated Date: [] Patient: Jazmin Hooker a 79 y/o F admitted on 02/13/20 for SOB, fever. Chief Complaint: [] Interval history: Ms. Hooker is a 79 year old F with a history of hypertension/bipolar disorder who was recently discharged on February 09 following right hip fracture/right hip hemiarthroplasty. Patient was recovering well and was in her baseline state of health until last night. She woke up around 2 to use the bathroom following which her found that she was difficult to arouse this morning. She is also increasingly short of breath/coughing and fever. She is brought into the ER for evaluation. Initial work-up was consistent with severe hypoxic story failure requiring 6 L oxygen/multifocal chest infiltrates on CT angiogram chest and elevated creatinine 2. Hospital service was consulted in light of hypoxic respiratory failure/multifocal pneumonia and acute renal failure. At the time of my evaluation patient is accompanied with her . She is able to answer most of the question. She is markedly short of breath breathing at over 35 to 40-minute. She is currently on 6 days oxygen and unable to talk in full sentences. She denies diarrhea, bloody stool, dysuria, lightheadedness or dizziness. She denies lower extremity swelling/bleeding. She denies changes in medications, trauma or fall 02/13-patient doing a lot better since admission. Currently on full dose oxygen. Alert oriented respond to commands. No telemetry events other than persistent tachycardia at 110 however respiratory rate improved to mid 20s. T-max 100.1. Hemoglobin down from 8.1-7.1. 2 units blood transfusion today. Heparin held. Creatinine down to 1.5 from 2, BUN improving. Platelets 103. ST eval today. All meals on on chair to prevent further aspiration. 02/14-patient seen in ICU. Persistent tachycardia on 120 however much improved respiratory status. Sitting on chair eating breakfast. Now on 2 L oxygen. Interval imaging unchanged with bilateral mid and lower lobe infiltrates consistent with aspiration. Maintain aspiration precautions. Continue dysphagia diet. White count 10.3. T-max 101. Hemoglobin improved from 7.1-9 following during his transfusion. Renal failure resolved with creatinine down from two 2->0.8, lower IV fluids to 40 cc an hour 02/15 Doing better. On room air this morning. She does have a cough with productive sputum. As of breath is better although she still gets winded with activity. 02/16 Patient did have asymptomatic tachycardia in the 140s to 160s last night given Lopressor with resolution. EKG with possibly a flutter. She did have notable P waves with some of the complexes but it appeared that the P wave got buried in some of the other QRSs and T waves. She denies any other new complaints. Does have occasional cough. Tolerating dysphagia diet and chest x-ray improved. Patient wanted to go home. She has some edema in her legs. Will give some La six and reevaluate her lunch and possible discharge. Review of Systems: denies headache/fever/chills/nausea/vomiting/chest or abdominal pain/diarrhea. Otherwise see above. Constitutional Vitals: Vital Signs Temp Pulse Resp BP Pulse Ox 98.4 F 105 H 22 141/74 96 02/17/20 03:26 02/17/20 03:26 02/17/20 03:26 02/17/20 03:26 02/17/20 03:26 Period Temp Pulse Resp BP Sys/Henning Pulse Ox Last 24 Hr 97.6 F-99.7 F 102-147 18-32 112-174/66-111 92-100 Intake and Output 02/16/20 02/17/20 02/17/20 21:59 05:59 13:59 Intake Total 449 142 2948 Output Total 150 175 Balance 340 -25 1100 Weight 71.214 kg Intake & Output: Intake & Output 02/16/20 02/17/20 02/17/20 21:59 05:59 13:59 Intake Total 549 275 7313 Output Total 150 175 Balance 340 -25 1100 Weight 71.214 kg Intake: IV 50 50 1100 Sodium Chloride 0.9% 1,000 ml @ 1000 40 mls/hr IV .Q24H [facility] Rx#: [id number] Zosyn 2.25 gm In Dextrose 5% in 50 50 50 Water 50 ml @ 100 mls/hr IV Q6H [facility] Rx#:[id number] Oral 440 100 Output: Void Amount 150 175 Other: Meal Dinner Percent of Meal Consumed 25% Urine Appearance Cloudy Cloudy Urine Color Dark Yellow Dark Yellow Urine Odor Normal Stool Size Small Moderate Stool Color Brown Brown Black Stool Consistency Loose Tracy # Voids 1 # Bowel Movements 1 1 Exam: General: Alert, Awake, No acute Distress Eyes/N/T: EOMI, Head/Neck: neck supple, CV: RRR, No murmurs, Pulm: mild b/l wheezing, occ rhonchi Abd: soft, nontender, +BS x4 Ext: no clubbing/cyanosis/edema Neuro: Alert, no focal deficits, moves all extremities, Skin: warm/dry OBJ DATA Labs CBC & Chem 7: 02/17/20 05:35 02/17/20 05:35 Labs: Abnormal Lab Results 02/17/20 02/17/20 02/16/20 05:35 05:35 05:15 RBC 2.97 L Hgb 8.9 L Hct 27.3 L RDW 19.6 H Plt Count 519 H MPV 11.0 H Band Neutrophils % Lymphocytes % Metamyelocytes % Myelocytes % Nucleated RBCs RBC Morphology Polychromasia Hypochromasia Anisocytosis Macrocytosis Sodium Carbon Dioxide 21 L 19 L Creatinine 0.5 L Glucose 116 H 107 H Calcium 8.3 L 7.9 L Phosphorus 1.9 L 1.5 L Alkaline Phosphatase 166 H Lactate Dehydrogenase 432 H 369 H Total Protein Albumin 2.9 L 2.5 L Albumin/Globulin Ratio 0.9 L 0.7 L 02/16/20 02/15/20 02/15/20 05:15 05:20 05:20 RBC 2.94 L 2.96 L Hgb 8.9 L 9.0 L Hct 27.8 L 27.9 L RDW 20.1 H 20.3 H Plt Count 490 H 468 H MPV 11.2 H 11.3 H Band Neutrophils % Lymphocytes % 6 L 7 L Metamyelocytes % 1 H 2 H Myelocytes % 1 H 2 H Nucleated RBCs 1 H 7 H RBC Morphology Abnorm A Abnorm A Polychromasia Few A 2+ A Hypochromasia Anisocytosis 1+ A 1+ A Macrocytosis 1+ A Sodium 132 L Carbon Dioxide 17 L Creatinine Glucose 109 H Calcium 7.8 L Phosphorus 1.5 L Alkaline Phosphatase Lactate Dehydrogenase 355 H Total Protein 5.7 L Albumin 2.4 L Albumin/Globulin Ratio 0.7 L 02/14/20 05:05 RBC Hgb Hct RDW Plt Count MPV Band Neutrophils % 45 H Lymphocytes % 12 L Metamyelocytes % Myelocytes % Nucleated RBCs RBC Morphology Abnorm A Polychromasia Occ A Hypochromasia 1+ A Anisocytosis 3+ A Macrocytosis 1+ A Sodium Carbon Dioxide Creatinine Glucose Calcium Phosphorus Alkaline Phosphatase Lactate Dehydrogenase Total Protein Albumin Albumin/Globulin Ratio Meds: Medications Acetaminophen (Tylenol) 650 mg PO Q4-6HP PRN; Protocol PRN Reason: Per Pain Protocol/Fever > 101 Hydrocodone Bitart/Acetaminophen ([place] 7.5/325mg) 1 - 2 tab PO Q4HP PRN; Protocol PRN Reason: Per Pain Protocol Last Admin: 02/16/20 13:56 Dose: 1 tab Documented by: Albuterol/Ipratropium (Duoneb) 3 ml NEB Q4HP PRN PRN Reason: Shortness of breath/Wheezing Last Admin: 02/16/20 13:43 Dose: 3 ml Documented by: Bisacodyl (Dulcolax) 10 mg [place] Q2-3DAYS PRN PRN Reason: Constipation Docusate Sodium (Colace) 100 mg PO BID [facility] Last Admin: 02/16/20 20:40 Dose: Not Given Documented by: Ferrous Sulfate (Ferrous Sulfate) 325 mg PO QDAY [facility] Heparin Sodium (Porcine) (Heparin) 5,000 unit SQ Q12 [facility] Last Admin: 02/16/20 20:42 Dose: 5,000 unit Documented by: Acetaminophen (Ofirmev) 650 mg in 65 mls @ 130 mls/hr IV Q6HP PRN; Protocol PRN Reason: Per Pain Protocol/Fever > 101 Magnesium Sulfate (Magnesium Sulfate) 2 gm in 50 mls @ 50 mls/hr IV UD PRN PRN Reason: MG = or < 1.7 Piperacillin Sod/Tazobactam (Sod 2.25 gm/ Dextrose) 50 mls @ 100 mls/hr IV Q6H [facility] Last Infusion: 02/17/20 06:56 Dose: Infused Documented by: Lactobacillus Rhamnosus (Culturelle) 1 cap PO BID [facility] Last Admin: 02/16/20 20:40 Dose: 1 cap Documented by: Levothyroxine Sodium (Synthroid) 50 mcg PO QAMAC [facility] Last Admin: 02/17/20 07:19 Dose: 50 mcg Documented by: Losartan Potassium (Cozaar) 50 mg PO DAILY [facility] Melatonin (Melatonin 3mg Tablet) 3 mg PO HSP PRN PRN Reason: Insomnia Last Admin: 02/16/20 20:41 Dose: 3 mg Documented by: Metoprolol Tartrate (Lopressor) 5 mg IV Q2HP PRN PRN Reason: Tachyarrhythmias Omeprazole (Prilosec) 20 mg PO ACB [facility] Last Admin: 02/17/20 07:19 Dose: 20 mg Documented by: Ondansetron HCl (Zofran Odt) 4 mg SL Q4-6HP PRN; Protocol PRN Reason: Nausea And Vomiting Ondansetron HCl (Zofran) 4 mg IV Q4-6HP PRN; Protocol PRN Reason: Nausea And Vomiting Polyethylene Glycol (Miralax) 17 gm PO DAILYP PRN PRN Reason: Constipation Potassium Chloride (Klor-Con) 40 meq PO DAILYP PRN PRN Reason: K+ < 3.5 Pramipexole Dihydrochloride (Mirapex) 1 mg PO TID [facility] Last Admin: 02/16/20 20:41 Dose: 1 mg Documented by: Quetiapine Fumarate (Seroquel) 50 mg PO [facility] Last Admin: 02/16/20 20:40 Dose: 50 mg Documented by: Quetiapine Fumarate (Seroquel) 400 mg PO [facility] Last Admin: 02/16/20 20:41 Dose: 400 mg Documented by: Senna/Docusate Sodium (Senna Plus Tablet) 1 tab PO [facility] Last Admin: 02/16/20 20:40 Dose: Not Given Documented by: Sodium Chloride (Saline Flush) 10 ml IV Q8 [facility] Last Admin: 02/17/20 05:18 Dose: 10 ml Documented by: Throat Lozenges (Cepacol) 1 lozenge PO Q2HP PRN PRN Reason: Sore Throat Last Admin: 02/16/20 20:42 Dose: 1 lozenge Documented by: A/P Narrative A/P Narrative: A: *Acute hypoxic respiratory failure: 2/2 multifocal pneumonia/PNA -Clinically improved -now on room air *Multifocal pneumonia likely aspiration in the setting of hiatal hernia *Oropharyngeal dysphagia, mild: *MANUELITO: 2/2 volume depletion -resolved *recent Right hip fracture: s/p ORIF (02/07) *Hypothyroidism: *HTN/HLD: *GERD: *Anemia, chronic: acute component post op *Depression/anxiety/bipolar: * P: -Continue dysphagia diet/aspiration precautions/antibiotic coverage(deescalate) -supp O2 -diet per ST -IS -cont home psych meds -cont home ARB -CM for placement -f/u with Gen Surg for Hiatal hernia and concern for causing aspiration -HHC -ppx: heparin Time Spent With Patient Time: Total time spent is greater than 50% in coordination of care (as documented) at patient's floor/unit and/or counseling patient: QUALITY Stroke Symptom Onset Unknown: No VTE Deep Vein Thrombosis/Pulmonary Embolism Present on Admission: No
[2020-02-17] MEDS ORDERED: NEUTRA PHOS 1 PACKET PO ONE (07:53)
--- NOTE | 2020-02-17 08:43 | XRay Report ---
CLINICAL INFORMATION: f/u infiltrates COMPARISON: 02/15/2020 FINDINGS: Moderate hiatal hernia again noted. Cardiomegaly unchanged. Mediastinum and pulmonary vessels are normal. Bilateral infiltrates are better aerated in today's study: There are small/moderate patchy residual infiltrates in the right mid lung and both bases. Small right pleural effusion has decreased. IMPRESSION: Improvement in bilateral mid and lower lung infiltrates with mild/moderate patchy residual Interpreted and Authenticated by: Edwardo Renee 02/17/20
[2020-02-17] MEDS ORDERED: FERROUS SULFATE 325 MG TABLET PO SCH (09:00)
[2020-02-17] MEDS ORDERED: LOSARTAN 50 MG TABLET PO SCH (09:00)
[2020-02-17] MEDS ORDERED: FUROSEMIDE 40 MG/4 ML VIAL IV ONE (09:46)
[2020-02-17] MEDS ORDERED: ALBUMIN HUMAN 12.5 GM/50 ML BAG IV ONE (09:46)
[2020-02-17 11:01] LABS: Anisocytosis 1+ (NONE SEEN); Band Neutrophils % 11 % (0-10); Eosinophils % (Manual) 6 % (0-7); Lymphocytes % 15 % (15-49); Metamyelocytes % 2 % (0-0); Monocytes % (Manual) 3 % (1-12); Nucleated Red Blood Cells 1 % (0-0); Platelet Estimate INCREASED (NORMAL); RBC Morphology ABNORM (NORMAL); Segmented Neutrophils % 63 % (38-78)
[2020-02-17] MEDS: DOCUSATE SODIUM 100 MG CAPSULE PO SCH (11:34)
[2020-02-17] MEDS: LACTOBACILLUS 1 CAPSULE PO SCH (11:34)
[2020-02-17] MEDS: PRAMIPEXOLE 1 MG TABLET PO SCH ×2 (11:35→15:04)
[2020-02-17] MEDS: HEPARIN 5,000 UNIT/ML VIAL SQ SCH (11:35)
== END 2020-02-17 16:06 | disposition home health service (06) | DRG 177 ==
LOC: ED 16:17 → ICU 22:55 → MEDSUR 02-16 13:30
PROVIDERS: ADMIT Internal Medicine; ATTEND Internal Medicine

== ENCOUNTER 2020-03-25 13:24 | Inpatient (IN) ==
[2020-03-25] MEDS ORDERED: ceFAZolin 1 GM VIAL IV ONE (15:19)
[2020-03-25] MEDS ORDERED: LIDOCAINE HCL/PF 100 MG/5 ML SYRINGE IV ONE (16:15)
[2020-03-25] MEDS ORDERED: TRANEXAMIC ACID 1,000 MG/10 ML VIAL IV ONE (16:15)
[2020-03-25] MEDS ORDERED: PROPOFOL 200 MG/20 ML VIAL IV ONE (16:15)
[2020-03-25] MEDS ORDERED: ONDANSETRON 4 MG/2 ML VIAL ONE (16:15)
[2020-03-25] MEDS ORDERED: KETAMINE 100 MG/ML ML ONE (16:15)
[2020-03-25] MEDS ORDERED: fentaNYL 100 MCG/2 ML VIAL IV ONE (16:15)
[2020-03-25] MEDS ORDERED: DEXAMETHASONE 10 MG/ML VIAL ONE (16:15)
[2020-03-25] MEDS ORDERED: TOBRAMYCIN SULFATE 1.2 GM VIAL TOPICAL ONE (16:46)
[2020-03-25] MEDS ORDERED: PROMETHAZINE 25 MG/ML VIAL IV PRN ×2 (16:55→18:50)
[2020-03-25] MEDS ORDERED: METHOCARBAMOL 1,000 MG/10 ML VIAL IV PRN ×2 (16:55→18:50)
[2020-03-25] MEDS ORDERED: ePHEDrine 50 MG/ML AMPUL IV PRN ×2 (16:55→18:50)
[2020-03-25] MEDS ORDERED: NALOXONE HCL 0.4 MG/ML VIAL IV PRN ×2 (16:55→18:50)
[2020-03-25] MEDS ORDERED: FLUMAZENIL 0.1 MG/ML ML IV PRN ×2 (16:55→18:50)
[2020-03-25] MEDS ORDERED: ATROPINE SULFATE 0.4 MG/ML VIAL IV PRN ×2 (16:55→18:50)
[2020-03-25] MEDS ORDERED: ONDANSETRON 4 MG/2 ML VIAL IV PRN ×2 (16:55→18:50)
[2020-03-25] MEDS ORDERED: IPRATROPIUM/ALBUTEROL 3 ML AMPUL.NEB NEB PRN ×2 (16:55→18:50)
[2020-03-25] MEDS ORDERED: METOPROLOL TARTRATE 5 MG/5 ML VIAL IV PRN ×2 (16:55→18:50)
[2020-03-25] MEDS ORDERED: diphenhydrAMINE 50 MG/ML VIAL IV PRN ×2 (16:55→18:50)
[2020-03-25] MEDS ORDERED: VANCOMYCIN 1 GM VIAL TOPICAL SCH (17:00)
[2020-03-25] MEDS ORDERED: MAGNESIUM HYDROXIDE 30 ML ORAL.SUSP PO PRN ×2 (17:14→18:50)
[2020-03-25] MEDS ORDERED: BENZOCAINE/MENTHOL 1 LOZENGE PO PRN ×2 (17:14→18:50)
[2020-03-25] MEDS ORDERED: BISACODYL 10 MG SUPP.RECT PR PRN ×2 (17:14→18:50)
[2020-03-25] MEDS ORDERED: POLYETHYLENE GLYCOL 3350 17 GM PACKET PO PRN ×2 (17:14→18:50)
[2020-03-25] MEDS ORDERED: FLEETS ADULT ENEMA PR PRN ×2 (17:14→18:50)
[2020-03-25] MEDS ORDERED: HYDROCODONE/APAP 7.5/325MG TABLET PO PRN ×3 (17:19→18:50)
[2020-03-25] MEDS ORDERED: morphine 4 MG/ML VIAL IV PRN ×2 (17:19→18:50)
[2020-03-25] MEDS ORDERED: METHOCARBAMOL 750 MG TABLET PO PRN ×3 (17:19→18:50)
--- NOTE | 2020-03-25 17:26 | Brief Operative Note ---
Brief Operative Note Date of procedure: 03/25/20 Pre-op diagnosis: draining hip wound Post-op diagnosis: same Procedure: I and D Anesthesia: GETA Complications: none Surgeon: Steven Birmingham Estimated blood loss (cc): 100 Specimens Removed/Pathology: other (culture)
[2020-03-25] MEDS: ACETAMINOPHEN 1,000 MG/100 ML BOTTLE IV ONE ×2 (17:30→17:39)
[2020-03-25] MEDS: VANCOMYCIN 1 GM VIAL TOPICAL ONE ×2 (17:40→17:52)
[2020-03-25] MEDS: VANCOMYCIN 1,000 MG in 0.9 % SODIUM CHLORIDE 250 ML IV ONE ×2 (17:40→17:52)
[2020-03-25] MEDS: fentaNYL 100 MCG/2 ML VIAL IV PRN ×3 (17:44→18:04)
[2020-03-25] MEDS: MEPERIDINE 25 MG/ML SYRINGE IV PRN ×2 (17:51→18:02)
[2020-03-25] MEDS ORDERED: cefTRIAXone 2 GM in DEXTROSE 5% IN WATER 50 ML IV ONE ×2 (18:00→18:50)
--- NOTE | 2020-03-25 18:38 | Internal Medicine Consult Note ---
HPI Data of Consult Primary Care Provider: Keila Quintero Consult Narrative cc:: CC: Steven Birmingham Reason for consult-antibiotic selection and management of medical issues History of presenting complaint Ms. Hooker is a 79-year-old female with a history of bipolar disorder/HTN/hypothyroidism/anxiety disorder who was recently admitted to [facility] in January following right hip fracture and underwent hemiarthroplasty. She was hospitalized within a week with multifocal pneumonia/hypoxic respiratory failure and was discharged home following improvement and resolution of pneumonia with home health services. She was evaluated by orthopedics due to right hip swelling and septic arthritis was suspected, she underwent operative intervention with incision drainage today. Postoperatively hospitalist service was consulted by orthopedics for management of medical issues and antibiotic selection. Intraoperative cultures were sent. Patient was seen immediately postoperative phase. Patient is accompanied with her Leeroy. She is able to answer most questions. She endorses that over the last few days she has noted increasing swelling pain difficulty ambulation around the right hip. The swelling felt like a tennis ball and subsequently was reviewed with Dr. Birmingham's office. She was started on outpatient oral antibiotics and underwent incision drainage at [facility] today. Patient denies fever, diarrhea, headache. Review of systems 10 point review system was performed and is negative except for ones discussed above Constitutional Constitutional: Present as per HPI PFSH PFSH All Active Problems Syncope and collapse (Acute) Hiatal hernia (Acute) Peripheral edema (Acute) Multilobar lung infiltrate (Acute) Sepsis (Acute) Closed fracture of right hip (Acute) Counseling for estrogen replacement therapy (Chronic) CTS (carpal tunnel syndrome) (Chronic) Osteoarthritis (Chronic) Osteopenia (Chronic) Barretts esophagus (Chronic ~2012) Right wrist fracture (Chronic ~08/2012) Fracture of toe of left foot (Chronic ~02/2010) History of encephalitis (Chronic) Hiatal hernia (Chronic) Depression (Chronic) Anxiety (Chronic) GERD (gastroesophageal reflux disease) (Chronic) Headache (Chronic) Encounter for Zostavax administration (Chronic 10/24/14) History of tonsillectomy (Chronic) History of hysterectomy (Chronic) Bursitis, calcaneal (Chronic) Hypertension (Chronic) Hyperlipidemia (Chronic) Knee pain (Chronic) Restless leg syndrome (Chronic) Lumbosacral disc herniation (Chronic) Fracture of right hand (Chronic) SOB (shortness of breath) (Chronic) Anemia (Chronic) Peripheral edema (Chronic) Hyponatremia (Chronic) Osteopenia (Chronic) Osteoporosis (Chronic) Encounter for long-term (current) use of other medications (Chronic) Urinary frequency (Chronic) Atrophic vaginitis (Chronic) Bipolar 2 disorder (Chronic) Hypothyroidism (Chronic) Multifocal motor neuropathy (Chronic) Anemia, pernicious (Chronic) Lumbar back pain with radiculopathy affecting lower extremity (Chronic) Cellulitis (Chronic) Acute diarrhea (Chronic) Abscess of skin or subcutaneous tissue (Chronic) Medical History Abscess of skin or subcutaneous tissue (Chronic) Acute diarrhea (Chronic) Anemia (Chronic) Anemia, pernicious (Chronic) Anxiety (Chronic) Atrophic vaginitis (Chronic) Barretts esophagus (Chronic ~2012) Bipolar 2 disorder (Chronic) Bursitis, calcaneal (Chronic) Cellulitis (Chronic) Counseling for estrogen replacement therapy (Chronic) CTS (carpal tunnel syndrome) (Chronic) Dr Smith Depression (Chronic) Encounter for long-term (current) use of other medications (Chronic) Encounter for Zostavax administration (Chronic 10/24/14) Fracture of right hand (Chronic) Fracture of toe of left foot (Chronic ~02/2010) GERD (gastroesophageal reflux disease) (Chronic) Headache (Chronic) Hiatal hernia (Chronic) History of encephalitis (Chronic) age 5 Hyperlipidemia (Chronic) Hypertension (Chronic) Hyponatremia (Chronic) Hypothyroidism (Chronic) Knee pain (Chronic) Lumbar back pain with radiculopathy affecting lower extremity (Chronic) Lumbosacral disc herniation (Chronic) Multifocal motor neuropathy (Chronic) Osteoarthritis (Chronic) Osteopenia (Chronic) Osteopenia (Chronic) Dexa on 08/02 Osteoporosis (Chronic) Peripheral edema (Chronic) Restless leg syndrome (Chronic) Right wrist fracture (Chronic ~08/2012) SOB (shortness of breath) (Chronic) Urinary frequency (Chronic) Surgical History History of back surgery (Chronic) Lumbar with Dr. 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 other: 1st husb of Suicide after 27yrs of marriage, was exp to HIV & HepC smoking status: Never smoker MEDS/ALLERGIES Home Medications and Allergies Home Medications Medication Instructions Recorded Confirmed Type ezetimibe 10 mg tablet 10 mg PO DAILY #90 tab 05/07/19 03/25/20 Rx biotin 10,000 mcg capsule 10,000 mcg PO QDAY 08/23/19 03/25/20 History ferrous sulfate 325 mg (65 mg 325 mg PO QDAY tab 09/13/19 03/25/20 History iron) tablet pramipexole 1 mg tablet 0.75 mg PO TID 09/13/19 03/25/20 History quetiapine 400 mg tablet 450 mg PO QPM tab 09/13/19 03/25/20 History vitamin B complex 1 tab PO QDAY 09/13/19 03/25/20 History levothyroxine 50 mcg tablet 50 mcg PO QDAY #90 tab 12/18/19 03/25/20 Rx losartan 50 mg tablet See Rx Instructions .ROUTE 01/04/20 03/25/20 Rx .COMPLEX #90 tablet methocarbamol 750 mg PO QID PRN #40 tab 02/10/20 03/25/20 Rx omeprazole 20 mg PO QDAY 02/13/20 03/25/20 History Lactobacillus acidophilus 2,000 mmu cells PO BID #40 cap 02/17/20 03/25/20 Rx albuterol sulfate 2 puff INHALATION Q6H PRN #8.5 g 02/17/20 03/25/20 Rx fluticasone furoate 200 1 inh INHALATION Q24H #60 each 02/20/20 03/25/20 Rx mcg-vilanterol 25 mcg/dose inhalation powder furosemide 40 mg tablet 40 mg PO QAM #30 tab 02/20/20 03/25/20 Rx bupropion HCl 100 mg tablet 100 mg PO QDAY tab 02/28/20 03/25/20 History tramadol 50 mg tablet 50 mg PO QDAY 02/28/20 03/25/20 History trazodone 50 mg tablet 25 mg PO QDAY 02/28/20 03/25/20 History venlafaxine 75 mg tablet 75 mg PO QDAY 02/28/20 03/25/20 History hydrocodone 7.5 mg-acetaminophen 1 - 2 tab PO Q4HP PRN #50 tab 03/21/20 03/25/20 Rx 325 mg tablet Allergies Allergy/AdvReac Type Severity Reaction Status Date / Time codeine Allergy Mild Rash Verified 03/20/20 11:21 ciprofloxacin AdvReac Intermediate Flushing Verified 03/20/20 11:21 aspirin AdvReac Mild Gastrointestinal Verified 03/20/20 11:21 Upset Sulfa (Sulfonamide AdvReac Mild Headache Verified 03/20/20 11:21 Antibiotics) EXAM Constitutional Vitals: Temp Pulse Resp BP Pulse Ox 98.8 F 76 16 145/54 100 03/25/20 18:07 03/25/20 18:07 03/25/20 18:07 03/25/20 18:07 03/25/20 18:07 Head normocephalic Oral cavity moist No ear nose discharge Eye movement symmetrical Neck supple no lymphadenopathy S1-S2 regular Nonlabored breathing Nondistended nontender abdomen Right hip postoperative. Bilateral lower extremity no cyanosis clubbing Skin no suspicious lesion Psych anxious but alert cooperative Neuro normal higher function General appearance: cooperative DATA Data Completed and Pending Labs: Labs from last 24 hours 03/25/20 15:00 SARS-CoV-2 (PCR) Negative A/P Narrative A/P Narrative: * Right hip septic arthritis-status post incision drainage by orthopedics. Start vancomycin/Rocephin for empiric coverage of MRSA. De-escalate based on culture sensitivities. Continue postoperative care as per orthopedics Hospitalist consult for management of medical issues * History of anemia continue monitoring * History of hypertension restart home dose losartan * Hypothyroidism continue home dose thyroxine * History of bipolar disorder continue quetiapine * Restless leg syndrome continue pramipexole * Anxiety disorder continue venlafaxine/trazodone/bupropion * GERD continue PPI * Full code * Prophylaxis heparin to start in 24 hours Plan * Recommend vancomycin/Rocephin and de-escalation based on sensitivities * Blood cultures * Pre-existing medical condition management as above * PICC line prior to discharge for outpatient antibiotics * Postoperative care * PT OT nutrition support Time Spent With Patient Time: Total time spent is greater than 50% in coordination of care (as documented) at patient's floor/unit and/or counseling patient:
[2020-03-25] MEDS ORDERED: ACETAMINOPHEN 650 MG/65 ML BOTTLE IV PRN (18:50)
[2020-03-25] MEDS ORDERED: MEPERIDINE 25 MG/ML SYRINGE IV PRN (18:50)
[2020-03-25] MEDS ORDERED: VANCOMYCIN PER PHARMACY IV ONE (18:50)
[2020-03-25] MEDS ORDERED: ALBUTEROL SULFATE 200 PUFF INHALER INH PRN (18:50)
[2020-03-25] MEDS ORDERED: POTASSIUM CHLORIDE 20 MEQ/15 ML ML PO PRN (18:50)
[2020-03-25] MEDS ORDERED: fentaNYL 100 MCG/2 ML VIAL IV PRN (18:50)
[2020-03-25] MEDS ORDERED: MAGNESIUM SULFATE 2 GM/50 ML BAG IV PRN (18:50)
[2020-03-25] MEDS: Fluticasone Furoate-Vilanterol [Breo Ellipta] Inhaler INH SCH (20:57)
[2020-03-25] MEDS ORDERED: SENNOSIDES 1 TABLET PO SCH (21:00)
[2020-03-25] MEDS ORDERED: DOCUSATE SODIUM 100 MG CAPSULE PO SCH (21:00)
[2020-03-25] MEDS: QUEtiapine 100 MG TABLET PO SCH (21:16)
[2020-03-25] MEDS: DOCUSATE SODIUM 100 MG CAPSULE PO SCH (21:17)
[2020-03-25] MEDS: SENNOSIDES 1 TABLET PO SCH (21:17)
[2020-03-25] MEDS: PRAMIPEXOLE 0.25 MG TABLET PO SCH (21:17)
[2020-03-25] MEDS: 0.9 % SODIUM CHLORIDE 10 ML SYRINGE IV SCH (21:17)
[2020-03-25] MEDS: LACTOBACILLUS 1 CAPSULE PO SCH (21:17)
[2020-03-25] MEDS ORDERED: 0.9 % SODIUM CHLORIDE 10 ML SYRINGE IV SCH (22:00)
[2020-03-25] MEDS: cefTRIAXone 2 GM in DEXTROSE 5% IN WATER 50 ML IV SCH (22:01)
[2020-03-25] MEDS ORDERED: cefTRIAXone 2 GM VIAL ONE (22:03)
[2020-03-25] MEDS ORDERED: CEFEPIME 1 GM VIAL ONE (22:55)
[2020-03-26] MEDS: 0.9 % SODIUM CHLORIDE 10 ML SYRINGE IV SCH ×3 (05:48→21:55)
[2020-03-26] MEDS ORDERED: VANCOMYCIN PER PHARMACY IV SCH (07:00)
[2020-03-26] MEDS: LEVOTHYROXINE 50 MCG TABLET PO SCH (07:19)
[2020-03-26] MEDS: OMEPRAZOLE 20 MG CAPSULE PO SCH (07:19)
--- NOTE | 2020-03-26 07:21 | General Surgery Progress Note ---
SUBJECTIVE Subjective Patient information: Note initiated : 03/26/20 at 7:15 am Service Date, if different from initiated Date: [] Patient: Jazmin Hooker 79 y/o F admitted on 03/25/20 for Right Hip Irrigation and Debridement with Wound. Chief Complaint: [S/p I&D of right hip] Patient is doing well and progressing as expected. She denies any new onset pain or calf tenderness in the RLE. She is anxious to return home. Constitutional Vitals: Vital Signs Temp Pulse Resp BP Pulse Ox 97.6 F 96 H 20 153/79 95 03/26/20 03:38 03/26/20 03:38 03/26/20 03:38 03/26/20 03:38 03/26/20 03:38 Period Temp Pulse Resp BP Sys/Henning Pulse Ox Last 24 Hr 97.6 F-98.8 F 76-103 16-24 104-154/52-102 93-100 Intake and Output 03/25/20 03/26/20 03/26/20 21:59 05:59 13:59 Intake Total 100 960 Output Total 350 1107 Balance -250 -147 Weight 132 lb 2 oz 136 lb 3.2 oz Intake & Output: Intake & Output 03/25/20 03/26/20 03/26/20 21:59 05:59 13:59 Intake Total 100 960 Output Total 350 1107 Balance -250 -147 Weight 132 lb 2 oz 136 lb 3.2 oz Intake: IV 100 Oral 960 Output: Drainage 50 32 Right Hip A 15 22 Right Hip B 35 10 Void Amount 300 1075 Other: Meal Dinner Percent of Meal Consumed 25% Feeding Ability Independent Urine Appearance Clear Clear Urine Color Bright Yellow Bright Yellow Extremities Exam Extremities exam: Present calf tenderness (negative bilaterally), Ibeth's sign (negative bilaterally) and neurovascular intact Additional comments: Surgical wound on the right posterior lateral hip contains intact sutures w/o any significant erythema, swelling, or eccymosis. Neurological Exam Neurological exam: Present alert and oriented X3 Psychiatric Psychiatric exam: Present normal affect and normal mood A/P Assessment and plan (1) Wound infection following procedure: Status: Acute Narrative A/P Narrative: Continue empiric abx pending culture results. Likely outpatient IV abx when discharged per hospitalist. Mobilize with PT today. Likely discharge in 1-3 days. Time Spent With Patient Time: Total time spent is greater than 50% in coordination of care (as documented) at patient's floor/unit and/or counseling patient:
--- NOTE | 2020-03-26 07:31 | Operative Note ---
DATE OF OPERATION: 03/25/2020 PREOPERATIVE DIAGNOSIS: Draining right hip wound with possible infection. POSTOPERATIVE DIAGNOSIS: Draining right hip wound with possible infection, with hematoma, normal. OPERATION PROPOSED: Irrigation and debridement of right hip. OPERATION PERFORMED: Irrigation and debridement of right hip. OPERATING SURGEON: Steven Birmingham MD IMMIGRATION CASE WORKER: Davina Samson PA-C. This provider's expertise and technical skill were required throughout the case. The PA assisted with preoperative coordination, intraoperative retraction, wound closure, dressing and splint application, as well as postoperative documentation and care coordination. INDICATIONS: A lady who is about a month out from a hemiarthroplasty. She has started to drain her wound and there is concern for infection. OPERATION IN DETAIL: Informed consent was obtained, the patient taken to the operating room, prepped with appropriate anesthetic and prophylactic antibiotics. She was carefully positioned. Her incision was opened and an extensive amount of fluid was drained. There was a rent through the iliotibial band and gluteal musculature. All suture was debrided. I opened down to expose the hip capsule. There was healing of the hip capsule and the suture was removed here. Extensive pulsatile lavage was performed. I then placed antibiotic beads. The hip capsule over the iliotibial band was closed with a deep drain with a #1 Monocryl, a 2-0 inverted deep dermal and lalita were used in the skin. A second drain was placed in the subq and additional antibiotic beads. Procedure was tolerated well. No complications. Estimated blood loss is 150 mL GDD:[id number] Job ID: [id number] Doc ID: [id number] Steven Birmingham MD
[2020-03-26 08:20] LABS: ALT/SGPT 7 U/L (<40); AST/SGOT 27 U/L (<32); Albumin 3.1 gm/dL (3.2-5.2); Alkaline Phosphatase 75 U/L (39-117); Bilirubin,Direct < 0.2 mg/dL (<0.3); Bilirubin,Total 0.4 mg/dL (0.1-1.0); Blood Urea Nitrogen 17 mg/dL (8-23); Calcium 9.6 mg/dL (8.6-10.4); Carbon Dioxide 21 mmol/L (22-30); Chloride 101 mmol/L (96-108); Globulin 3.2 gm/dL (2.2-3.7); Glomerular Filtration Rate 83; Glucose 108 mg/dL (70-105); Lactate Dehydrogenase 200 U/L (135-225); Phosphorous 2.8 mg/dL (2.5-4.5); Triglycerides 64 mg/dL (<150)
[2020-03-26 08:39] LABS: Anisocytosis 2+ (None Seen); Band Neutrophils % 4 % (0-10); Hematocrit 24.4 % (36.0-48.0); Hemoglobin 7.9 g/dL (12.0-15.0); Hypochromasia 1+ (None Seen); Lymphocytes % 10 % (15-49); Mean Cell Volume 94.2 fL (80.0-100.0); Mean Corpuscular HGB Conc 32.4 g/dL (31.0-36.0); Mean Platelet Volume 11.2 fL (7.4-10.4); Microcytosis 1+ (None Seen); Monocytes % (Manual) 6 % (1-12); Platelet Count 361 K/mcL (140-440); Platelet Estimate NORMAL (Normal); Polychromasia 1+ (None Seen); RBC 2.59 M/mcL (4.00-5.20); RBC Morphology ABNORMAL (Normal); Red Cell Distribution Width 21.6 % (11.5-14.5); Segmented Neutrophils % 80 % (38-78)
[2020-03-26] MEDS ORDERED: NON FORMULARY MEDICATION 1 DOSE MISCELL (Biotin 10,000 MCG) PO SCH (09:00)
[2020-03-26] MEDS: PRAMIPEXOLE 0.25 MG TABLET PO SCH ×3 (09:01→20:57)
[2020-03-26] MEDS: cefTRIAXone 2 GM in DEXTROSE 5% IN WATER 50 ML IV SCH (09:01)
[2020-03-26] MEDS: FUROSEMIDE 40 MG TABLET PO SCH (09:01)
[2020-03-26] MEDS: LACTOBACILLUS 1 CAPSULE PO SCH ×2 (09:01→20:56)
[2020-03-26] MEDS: VENLAFAXINE 75 MG TABLET PO SCH (09:01)
[2020-03-26] MEDS: DOCUSATE SODIUM 100 MG CAPSULE PO SCH ×2 (09:02→20:57)
[2020-03-26] MEDS: EZETIMIBE 10 MG TABLET PO SCH (09:02)
[2020-03-26] MEDS: LOSARTAN 50 MG TABLET PO SCH (09:02)
[2020-03-26] MEDS: FERROUS SULFATE 325 MG TABLET PO SCH (09:02)
[2020-03-26] MEDS: traZODone HCL 50 MG TABLET PO SCH (09:02)
[2020-03-26] MEDS: VITAMIN B COMPLEX 1 CAPSULE PO SCH (09:02)
[2020-03-26] MEDS: Fluticasone Furoate-Vilanterol [Breo Ellipta] Inhaler INH SCH (09:05)
[2020-03-26] MEDS: buPROPion 100 MG TABLET PO SCH (09:09)
[2020-03-26] MEDS: VANCOMYCIN 1,000 MG in 0.9 % SODIUM CHLORIDE 250 ML IV SCH (10:05)
--- NOTE | 2020-03-26 11:43 | Internal Med Progress Note ---
SUBJECTIVE Subjective Patient information: Note initiated : 03/26/20 at 11:39 am Service Date, if different from initiated Date: [] Patient: Jazmin Hooker 79 y/o F admitted on 03/25/20 for Right Hip Irrigation and Debridement with Wound. Chief Complaint: [] Ms. Hooker is a 79-year-old female with a history of bipolar disorder/HTN/hypothyroidism/anxiety disorder who was recently admitted to [facility] in January following right hip fracture and underwent hemiarthroplasty. She was hospitalized within a week with multifocal pneumonia/hypoxic respiratory failure and was discharged home following improvement and resolution of pneumonia with home health services. She was ev aluated by orthopedics due to right hip swelling and septic arthritis was suspected, she underwent operative intervention with incision drainage today. Postoperatively hospitalist service was consulted by orthopedics for management of medical issues and antibiotic selection. Intraoperative cultures were sent. Patient was seen immediately postoperative phase. Patient is accompanied with her Leeroy. She is able to answer most questions. She endorses that over the last few days she has noted increasing swelling pain difficulty ambulation around the right hip. The swelling felt like a tennis ball and subsequently was reviewed with Dr. Birmingahm's office. She was started on outpatient oral antibiotics and underwent incision drainage at [facility] today. 03/26-patient is status post day 1 right hip irrigation debridement and drainage. Cultures pending so far. On vancomycin/Rocephin. Patient seen in room, no active concerns. Tolerating diet. at bedside. Complains of heartburn. Usually usually gets relief with Pepcid at home. No acute overnight events or concerns per staff. Constitutional Vitals: Vital Signs Temp Pulse Resp BP Pulse Ox 98.1 F 89 20 147/73 96 03/26/20 07:38 03/26/20 07:38 03/26/20 07:38 03/26/20 07:38 03/26/20 07:38 Period Temp Pulse Resp BP Sys/Henning Pulse Ox Last 24 Hr 97.6 F-98.8 F 76-103 16-24 104-154/52-102 93-100 Intake and Output 03/25/20 03/26/20 03/26/20 21:59 05:59 13:59 Intake Total 100 1010 640 Output Total 350 1107 800 Balance -250 -97 -160 Weight 59.931 kg 61.779 kg alert oriented Nonlabored breathing Right hip dressing No anxiety Intake & Output: Intake & Output 03/25/20 03/26/20 03/26/20 21:59 05:59 13:59 Intake Total 100 1010 640 Output Total 350 1107 800 Balance -250 -97 -160 Weight 59.931 kg 61.779 kg Intake: IV 100 50 300 Vancomycin 1,000 mg In Sodium 250 Chloride 0.9% 250 ml @ 250 mls/ hr IV Q24H [facility] Rx#:[id number] Rocephin 2 gm In Dextrose 5% in 50 50 Water 50 ml @ 100 mls/hr IV Q24H [facility] Rx#:[id number] Oral 960 340 Output: Drainage 50 32 Right Hip A 15 22 Right Hip B 35 10 Void Amount 300 1075 800 Other: Meal Dinner Breakfast Percent of Meal Consumed 25% 100% Feeding Ability Independent Assist with Tray Set Up Urine Appearance Clear Clear Urine Color Bright Yellow Bright Yellow Straw Urine Odor Normal alert oriented no overnight events or concerns per staff OBJ DATA Labs CBC & Chem 7: 03/26/20 06:00 03/26/20 06:00 Labs: Abnormal Lab Results 03/26/20 03/26/20 06:00 06:00 RBC 2.59 L Hgb 7.9 L Hct 24.4 L RDW 21.6 H MPV 11.2 H Seg Neutrophils % 80 H Lymphocytes % 10 L RBC Morphology Abnormal A Polychromasia 1+ A Hypochromasia 1+ A Anisocytosis 2+ A Microcytosis 1+ A Carbon Dioxide 21 L Glucose 108 H Albumin 3.1 L Meds: Medications Hydrocodone Bitart/Acetaminophen ([place] 7.5/325mg) 0 tab PO Q4HP PRN; Protocol PRN Reason: Per Pain Protocol Albuterol Sulfate (Ventolin) 2 puff INH Q6HP PRN PRN Reason: shortness of breath or wheezin Bisacodyl (Dulcolax) 10 mg [place] Q2-3DAYS PRN PRN Reason: Constipation Bupropion HCl (Wellbutrin) 100 mg PO QDAY [facility] Last Admin: 03/26/20 09:09 Dose: 100 mg Documented by: Docusate Sodium (Colace) 100 mg PO BID [facility] Last Admin: 03/26/20 09:02 Dose: 100 mg Documented by: Ezetimibe (Zetia) 10 mg PO DAILY [facility] Last Admin: 03/26/20 09:02 Dose: 10 mg Documented by: Ferrous Sulfate (Ferrous Sulfate) 325 mg PO QDAY [facility] Last Admin: 03/26/20 09:02 Dose: 325 mg Documented by: Furosemide (Lasix) 40 mg PO QAM [facility] Last Admin: 03/26/20 09:01 Dose: 40 mg Documented by: Magnesium Sulfate (Magnesium Sulfate) 2 gm in 50 mls @ 50 mls/hr IV UD PRN PRN Reason: Mag < or = 1.7 Acetaminophen (Ofirmev) 650 mg in 65 mls @ 130 mls/hr IV Q6HP PRN; Protocol PRN Reason: Per Pain Protocol/Fever > 101 Ceftriaxone Sodium 2 gm/ (Dextrose) 50 mls @ 100 mls/hr IV Q24H [facility]; Protocol Last Infusion: 03/26/20 09:31 Dose: Infused Documented by: Vancomycin HCl 1,000 mg/ (Sodium Chloride) 250 mls @ 250 mls/hr IV Q24H [facility] Last Infusion: 03/26/20 11:22 Dose: Infused Documented by: Lactobacillus Rhamnosus (Culturelle) 1 cap PO BID [facility] Last Admin: 03/26/20 09:01 Dose: 1 cap Documented by: Levothyroxine Sodium (Synthroid) 50 mcg PO QAMAC [facility] Last Admin: 03/26/20 07:19 Dose: 50 mcg Documented by: Losartan Potassium (Cozaar) 50 mg PO DAILY [facility] Last Admin: 03/26/20 09:02 Dose: 50 mg Documented by: Magnesium Hydroxide (Milk Of Magnesia) 30 ml PO BIDP PRN PRN Reason: Constipation Methocarbamol (Robaxin) 750 mg PO Q6HP PRN PRN Reason: Muscle Spasm Morphine Sulfate (Morphine) 0 mg IV Q1HP PRN; Protocol PRN Reason: Per Pain Protocol Omeprazole (Prilosec) 20 mg PO ACB [facility] Last Admin: 03/26/20 07:19 Dose: 20 mg Documented by: Fluticasone Furoate- Vilanterol [Breo Ellipta] Inhaler 1 dose INH Q24H [facility] Last Admin: 03/26/20 09:05 Dose: Not Given Documented by: Polyethylene Glycol (Miralax) 17 gm PO DAILYP PRN PRN Reason: Constipation Potassium Chloride (Potassium Chloride) 20 meq PO BIDCC PRN PRN Reason: K <3.6 Pramipexole Dihydrochloride (Mirapex) 0.75 mg PO TID [facility] Last Admin: 03/26/20 09:01 Dose: 0.75 mg Documented by: Quetiapine Fumarate (Seroquel) 450 mg PO QPM [facility] Last Admin: 03/25/20 21:16 Dose: 450 mg Documented by: Senna (Senokot) 2 tab PO HS [facility] Last Admin: 03/25/20 21:17 Dose: 2 tab Documented by: Sodium Biphosphate/Sodium Phosphate (Fleets Adult) 1 dose DC Q3-4DAYS PRN PRN Reason: Constipation Sodium Chloride (Saline Flush) 10 ml IV Q8 [facility] Last Admin: 03/26/20 05:48 Dose: 10 ml Documented by: Throat Lozenges (Cepacol) 1 lozenge PO PRN PRN PRN Reason: Sore Throat Tramadol HCl (Ultram) 50 mg PO DAILYP PRN; Protocol PRN Reason: Pain Trazodone HCl (Desyrel) 25 mg PO QDAY [facility] Last Admin: 03/26/20 09:02 Dose: 25 mg Documented by: Vancomycin HCl (Vancomycin Per Pharmacy) 1 order IV UD [facility]; Protocol Venlafaxine HCl (Effexor) 75 mg PO QDAY [facility] Last Admin: 03/26/20 09:01 Dose: 75 mg Documented by: Vitamin B Complex (Vitamin B Complex) 1 cap PO DAILY [facility] Last Admin: 03/26/20 09:02 Dose: 1 cap Documented by: A/P Narrative A/P Narrative: * Right hip septic arthritis-status post incision drainage by orthopedics. Await cultures. Continue vancomycin/Rocephin for empiric coverage of MRSA. De-escalate based on culture sensitivities. Continue postoperative care as per orthopedics Hospitalist consult for management of medical issues * History of anemia -hemoglobin stable at 10. * History of hypertension stable on home dose losartan * Hypothyroidism continue home dose thyroxine * History of bipolar disorder stable on home dose quetiapine * Restless leg syndrome continue pramipexole * Anxiety disorder stable on home dose venlafaxine/trazodone/bupropion * GERD continue PPI * Full code * Prophylaxis heparin to start in 24 hours Plan * Continue vancomycin/Rocephin and de-escalation based on sensitivities, consult ID once sensitivities available * Pre-existing medical condition management as above * PICC line prior to discharge for outpatient antibiotics * Postoperative care * PT OT nutrition support Time Spent With Patient Time: Total time spent is greater than 50% in coordination of care (as documented) at patient's floor/unit and/or counseling patient: QUALITY VTE Deep Vein Thrombosis/Pulmonary Embolism Present on Admission: No
[2020-03-26] MEDS: FAMOTIDINE 20 MG TABLET PO PRN (14:12)
[2020-03-26] MEDS: traMADol 50 MG TABLET PO PRN (20:56)
[2020-03-26] MEDS: SENNOSIDES 1 TABLET PO SCH (20:57)
[2020-03-26] MEDS: QUEtiapine 100 MG TABLET PO SCH (20:58)
[2020-03-27] MEDS: 0.9 % SODIUM CHLORIDE 10 ML SYRINGE IV SCH ×6 (05:10→20:44)
[2020-03-27] MEDS: traMADol 50 MG TABLET PO PRN (06:53)
[2020-03-27] MEDS: OMEPRAZOLE 20 MG CAPSULE PO SCH (07:04)
[2020-03-27] MEDS: FAMOTIDINE 20 MG TABLET PO PRN (07:04)
[2020-03-27] MEDS: LEVOTHYROXINE 50 MCG TABLET PO SCH (07:04)
--- NOTE | 2020-03-27 07:36 | Orthopedic Progress Note ---
SUBJECTIVE Subjective Patient information: Note initiated : 03/27/20 at 7:34 am Service Date, if different from initiated Date: [] Patient: Jazmin Hooker 79 y/o F admitted on 03/25/20 for Right Hip Irrigation and Debridement with Wound. Chief Complaint: no new issues[] Constitutional Vitals: Vital Signs Temp Pulse Resp BP Pulse Ox 98.2 F 91 H 18 119/67 93 03/27/20 03:33 03/27/20 03:33 03/27/20 03:33 03/27/20 03:33 03/27/20 03:33 Period Temp Pulse Resp BP Sys/Henning Pulse Ox Last 24 Hr 97.9 F-98.6 F 89-98 - 102-149/57-74 93-97 Intake and Output 03/26/20 03/27/20 03/27/20 21:59 05:59 13:59 Intake Total 840 420 Output Total 902 252 Balance -62 168 Weight 135 lb 3.2 oz Intake & Output: Intake & Output 03/26/20 03/27/20 03/27/20 21:59 05:59 13:59 Intake Total 840 420 Output Total 902 252 Balance -62 168 Weight 135 lb 3.2 oz Intake: Oral 840 420 Output: Drainage 2 2 Right Hip A 1 2 Right Hip B 1 0 Void Amount 900 250 Other: Meal Lunch Percent of Meal Consumed 75% Feeding Ability Assist with Tray Set Up Urine Appearance Clear Urine Color Straw Bright Yellow Urine Odor Normal OBJ DATA Labs CBC & Chem 7: 03/26/20 06:00 03/26/20 06:00 Labs: Abnormal Lab Results 03/26/20 03/26/20 06:00 06:00 RBC 2.59 L Hgb 7.9 L Hct 24.4 L RDW 21.6 H MPV 11.2 H Seg Neutrophils % 80 H Lymphocytes % 10 L RBC Morphology Abnormal A Polychromasia 1+ A Hypochromasia 1+ A Anisocytosis 2+ A Microcytosis 1+ A Carbon Dioxide 21 L Glucose 108 H Albumin 3.1 L Meds: Medications Hydrocodone Bitart/Acetaminophen ([place] 7.5/325mg) 0 tab PO Q4HP PRN; Protocol PRN Reason: Per Pain Protocol Albuterol Sulfate (Ventolin) 2 puff INH Q6HP PRN PRN Reason: shortness of breath or wheezin Bisacodyl (Dulcolax) 10 mg [place] Q2-3DAYS PRN PRN Reason: Constipation Bupropion HCl (Wellbutrin) 100 mg PO QDAY [facility] Last Admin: 03/26/20 09:09 Dose: 100 mg Documented by: Docusate Sodium (Colace) 100 mg PO BID [facility] Last Admin: 03/26/20 20:57 Dose: 100 mg Documented by: Ezetimibe (Zetia) 10 mg PO DAILY [facility] Last Admin: 03/26/20 09:02 Dose: 10 mg Documented by: Famotidine (Pepcid) 20 mg PO TIDP PRN PRN Reason: Heartburn Last Admin: 03/27/20 07:04 Dose: 20 mg Documented by: Ferrous Sulfate (Ferrous Sulfate) 325 mg PO QDAY [facility] Last Admin: 03/26/20 09:02 Dose: 325 mg Documented by: Furosemide (Lasix) 40 mg PO QAM [facility] Last Admin: 03/26/20 09:01 Dose: 40 mg Documented by: Magnesium Sulfate (Magnesium Sulfate) 2 gm in 50 mls @ 50 mls/hr IV UD PRN PRN Reason: Mag < or = 1.7 Acetaminophen (Ofirmev) 650 mg in 65 mls @ 130 mls/hr IV Q6HP PRN; Protocol PRN Reason: Per Pain Protocol/Fever > 101 Ceftriaxone Sodium 2 gm/ (Dextrose) 50 mls @ 100 mls/hr IV Q24H [facility]; Protocol Last Infusion: 03/26/20 09:31 Dose: Infused Documented by: Vancomycin HCl 1,000 mg/ (Sodium Chloride) 250 mls @ 250 mls/hr IV Q24H [facility] Last Infusion: 03/26/20 11:22 Dose: Infused Documented by: Lactobacillus Rhamnosus (Culturelle) 1 cap PO BID [facility] Last Admin: 03/26/20 20:56 Dose: 1 cap Documented by: Levothyroxine Sodium (Synthroid) 50 mcg PO QAMAC [facility] Last Admin: 03/27/20 07:04 Dose: 50 mcg Documented by: Losartan Potassium (Cozaar) 50 mg PO DAILY [facility] Last Admin: 03/26/20 09:02 Dose: 50 mg Documented by: Magnesium Hydroxide (Milk Of Magnesia) 30 ml PO BIDP PRN PRN Reason: Constipation Methocarbamol (Robaxin) 750 mg PO Q6HP PRN PRN Reason: Muscle Spasm Morphine Sulfate (Morphine) 0 mg IV Q1HP PRN; Protocol PRN Reason: Per Pain Protocol Omeprazole (Prilosec) 20 mg PO ACB [facility] Last Admin: 03/27/20 07:04 Dose: 20 mg Documented by: Fluticasone Furoate- Vilanterol [Breo Ellipta] Inhaler 1 dose INH Q24H [facility] Last Admin: 03/26/20 09:05 Dose: Not Given Documented by: Polyethylene Glycol (Miralax) 17 gm PO DAILYP PRN PRN Reason: Constipation Potassium Chloride (Potassium Chloride) 20 meq PO BIDCC PRN PRN Reason: K <3.6 Pramipexole Dihydrochloride (Mirapex) 0.75 mg PO TID [facility] Last Admin: 03/26/20 20:57 Dose: 0.75 mg Documented by: Quetiapine Fumarate (Seroquel) 450 mg PO QPM [facility] Last Admin: 03/26/20 20:58 Dose: 450 mg Documented by: Carlos A (Senokot) 2 tab PO HS [facility] Last Admin: 03/26/20 20:57 Dose: 2 tab Documented by: Sodium Biphosphate/Sodium Phosphate (Fleets Adult) 1 dose [place] Q3-4DAYS PRN PRN Reason: Constipation Sodium Chloride (Saline Flush) 10 ml IV Q8 [facility] Last Admin: 03/27/20 05:10 Dose: 10 ml Documented by: Throat Lozenges (Cepacol) 1 lozenge PO PRN PRN PRN Reason: Sore Throat Tramadol HCl (Ultram) 50 mg PO DAILYP PRN; Protocol PRN Reason: Pain Last Admin: 03/27/20 06:53 Dose: 50 mg Documented by: Trazodone HCl (Desyrel) 25 mg PO QDAY [facility] Last Admin: 03/26/20 09:02 Dose: 25 mg Documented by: Vancomycin HCl (Vancomycin Per Pharmacy) 1 order IV [facility]; Protocol Venlafaxine HCl (Effexor) 75 mg PO QDAY [facility] Last Admin: 03/26/20 09:01 Dose: 75 mg Documented by: Vitamin B Complex (Vitamin B Complex) 1 cap PO DAILY [facility] Last Admin: 03/26/20 09:02 Dose: 1 cap Documented by: A/P Narrative A/P Narrative: cultures negative from aspirate will continue rocephin dc Time Spent With Patient Time: Total time spent is greater than 50% in coordination of care (as documented) at patient's floor/unit and/or counseling patient:
[2020-03-27] MEDS ORDERED: 0.9 % SODIUM CHLORIDE 10 ML SYRINGE IV PRN (08:37)
[2020-03-27] MEDS: cefTRIAXone 2 GM in DEXTROSE 5% IN WATER 50 ML IV SCH (09:07)
[2020-03-27] MEDS: FERROUS SULFATE 325 MG TABLET PO SCH (09:07)
[2020-03-27] MEDS: LACTOBACILLUS 1 CAPSULE PO SCH ×2 (09:07→20:43)
[2020-03-27] MEDS: PRAMIPEXOLE 0.25 MG TABLET PO SCH ×3 (09:07→20:43)
[2020-03-27] MEDS: buPROPion 100 MG TABLET PO SCH (09:07)
[2020-03-27] MEDS: VENLAFAXINE 75 MG TABLET PO SCH (09:07)
[2020-03-27] MEDS: EZETIMIBE 10 MG TABLET PO SCH (09:08)
[2020-03-27] MEDS: FUROSEMIDE 40 MG TABLET PO SCH (09:08)
[2020-03-27] MEDS: LOSARTAN 50 MG TABLET PO SCH (09:08)
[2020-03-27] MEDS: DOCUSATE SODIUM 100 MG CAPSULE PO SCH ×2 (09:08→20:42)
[2020-03-27] MEDS: traZODone HCL 50 MG TABLET PO SCH (09:08)
[2020-03-27] MEDS: VITAMIN B COMPLEX 1 CAPSULE PO SCH (09:08)
[2020-03-27] MEDS: Fluticasone Furoate-Vilanterol [Breo Ellipta] Inhaler INH SCH (09:09)
[2020-03-27 09:31] LABS: ALT/SGPT 6 U/L (<40); AST/SGOT 18 U/L (<32); Albumin 3.4 gm/dL (3.2-5.2); Albumin/Globulin Ratio 1.2 (1.0-2.3); Alkaline Phosphatase 81 U/L (39-117); Bilirubin,Direct < 0.2 mg/dL (<0.3); Bilirubin,Total 0.4 mg/dL (0.1-1.0); Blood Urea Nitrogen 13 mg/dL (8-23); Carbon Dioxide 24 mmol/L (22-30); Chloride 100 mmol/L (96-108); Globulin 2.9 gm/dL (2.2-3.7); Glomerular Filtration Rate 71; Glucose 98 mg/dL (70-105); Lactate Dehydrogenase 168 U/L (135-225); Phosphorous 3.3 mg/dL (2.5-4.5); Triglycerides 119 mg/dL (<150); Uric Acid 6.6 mg/dL (2.5-8.0)
[2020-03-27 09:36] LABS: Anisocytosis 2+ (None Seen); Eosinophils % (Manual) 2 % (0-7); Hematocrit 24.9 % (36.0-48.0); Hemoglobin 7.9 g/dL (12.0-15.0); Hypochromasia 1+ (None Seen); Lymphocytes % 25 % (15-49); Mean Cell Volume 93.3 fL (80.0-100.0); Mean Corpuscular HGB Conc 31.7 g/dL (31.0-36.0); Mean Platelet Volume 11.5 fL (7.4-10.4); Microcytosis 1+ (None Seen); Monocytes % (Manual) 8 % (1-12); Platelet Count 386 K/mcL (140-440); Platelet Estimate NORMAL (Normal); Polychromasia 1+ (None Seen); RBC 2.67 M/mcL (4.00-5.20); RBC Morphology ABNORMAL (Normal); Red Cell Distribution Width 21.7 % (11.5-14.5); Segmented Neutrophils % 65 % (38-78); WBC 5.5 K/mcL (4.5-11.0)
--- NOTE | 2020-03-27 10:56 | Internal Med Progress Note ---
SUBJECTIVE Subjective Patient information: note initiated : 03/27/20 at 10:54 am Service Date, if different from initiated Date: [] Patient: Jazmin Hooker 79 y/o F admitted on 03/25/20 for Right Hip Irrigation and Debridement with Wound. Chief Complaint: Ms. Hooker is a 79-year-old female with a history of bipolar disorder/HTN/hypothyroidism/anxiety disorder who was recently admitted to [facility] in January following right hip fracture and underwent hemiarthroplasty. She was hospitalized within a week with multifocal pneumonia/hypoxic respiratory failure and was discharged home following improvement and resolution of pneumonia with home health services. She was evaluated by orthopedics due to right hip swelling and septic arthritis was suspected, she underwent operative intervention with incision drainage today. Postoperatively hospitalist service was consulted by orthopedics for management of medical issues and antibiotic selection. Intraoperative cultures were sent. Patient was seen immediately postoperative phase. Patient is accompanied with her Leeroy. She is able to answer most questions. She endorses that over the last few days she has noted increasing swelling pain difficulty ambulation around the right hip. The swelling felt like a tennis ball and subsequently was reviewed with Dr. Birmingham's office. She was started on outpatient oral antibiotics and underwent incision drainage at [facility] today. 03/26-patient is status post day 1 right hip irrigation debridement and drainage. Cultures pending so far. On vancomycin/Rocephin. Patient seen in room, no active concerns. Tolerating diet. at bedside. Complains of heartburn. Usually usually gets relief with Pepcid at home. No acute overnight events or concerns per staff. 03/27-patient doing well. No overnight events. No concerns per staff. On antibiotic coverage. PICC line placement today. Wound cultures negative so far. Will likely discharge in 24 hours and outpatient antibiotics. Constitutional Vitals: Vital Signs Temp Pulse Resp BP Pulse Ox 98.8 F 66 16 127/65 97 03/27/20 08:00 03/27/20 08:00 03/27/20 08:00 03/27/20 08:00 03/27/20 08:00 Period Temp Pulse Resp BP Sys/Henning Pulse Ox Last 24 Hr 97.9 F-98.8 F 66-98 16-20 102-149/57-74 93-97 Intake and Output 03/26/20 03/27/20 03/27/20 21:59 05:59 13:59 Intake Total 840 420 480 Output Total 902 252 300 Balance -62 168 180 Weight 61.326 kg Alert oriented no anxiety Nonlabored breathing Nondistended nontender abdomen Intake & Output: Intake & Output 03/26/20 03/27/20 03/27/20 21:59 05:59 13:59 Intake Total 840 420 480 Output Total 902 252 300 Balance -62 168 180 Weight 61.326 kg Intake: Oral 840 420 480 Output: Drainage 2 2 Right Hip A 1 2 Right Hip B 1 0 Void Amount 900 250 300 Other: Meal Lunch Breakfast Percent of Meal Consumed 75% 100% Feeding Ability Assist with Tray Set Up Urine Appearance Clear Urine Color Straw Bright Yellow Urine Odor Normal OBJ DATA Labs CBC & Chem 7: 03/27/20 05:52 03/27/20 05:52 Labs: Abnormal Lab Results 03/27/20 03/26/20 03/26/20 05:52 06:00 06:00 RBC 2.67 L 2.59 L Hgb 7.9 L 7.9 L Hct 24.9 L 24.4 L RDW 21.7 H 21.6 H MPV 11.5 H 11.2 H Seg Neutrophils % 80 H Lymphocytes % 10 L RBC Morphology Abnormal A Abnormal A Polychromasia 1+ A 1+ A Hypochromasia 1+ A 1+ A Anisocytosis 2+ A 2+ A Microcytosis 1+ A 1+ A Carbon Dioxide 21 L Glucose 108 H Albumin 3.1 L Meds: Medications Hydrocodone Bitart/Acetaminophen ([place] 7.5/325mg) 0 tab PO Q4HP PRN; Protocol PRN Reason: Per Pain Protocol Albuterol Sulfate (Ventolin) 2 puff INH Q6HP PRN PRN Reason: shortness of breath or wheezin Bisacodyl (Dulcolax) 10 mg [place] Q2-3DAYS PRN PRN Reason: Constipation Bupropion HCl (Wellbutrin) 100 mg PO QDAY [facility] Last Admin: 03/27/20 09:07 Dose: 100 mg Documented by: Docusate Sodium (Colace) 100 mg PO BID [facility] Last Admin: 03/27/20 09:08 Dose: 100 mg Documented by: Ezetimibe (Zetia) 10 mg PO DAILY [facility] Last Admin: 03/27/20 09:08 Dose: 10 mg Documented by: Famotidine (Pepcid) 20 mg PO TIDP PRN PRN Reason: Heartburn Last Admin: 03/27/20 07:04 Dose: 20 mg Documented by: Ferrous Sulfate (Ferrous Sulfate) 325 mg PO QDAY [facility] Last Admin: 03/27/20 09:07 Dose: 325 mg Documented by: Furosemide (Lasix) 40 mg PO QAM [facility] Last Admin: 03/27/20 09:08 Dose: 40 mg Documented by: Heparin Sodium (Porcine) (Heparin 10 Units/Ml Flush) 2 ml IV Q12 [facility] Last Admin: 03/27/20 09:09 Dose: Not Given Documented by: Magnesium Sulfate (Magnesium Sulfate) 2 gm in 50 mls @ 50 mls/hr IV UD PRN PRN Reason: Mag < or = 1.7 Acetaminophen (Ofirmev) 650 mg in 65 mls @ 130 mls/hr IV Q6HP PRN; Protocol PRN Reason: Per Pain Protocol/Fever > 101 Ceftriaxone Sodium 2 gm/ (Dextrose) 50 mls @ 100 mls/hr IV Q24H [facility]; Protocol Last Admin: 03/27/20 09:07 Dose: 100 mls/hr Documented by: Vancomycin HCl 1,000 mg/ (Sodium Chloride) 250 mls @ 250 mls/hr IV Q24H [facility] Last Infusion: 03/26/20 11:22 Dose: Infused Documented by: Lactobacillus Rhamnosus (Culturelle) 1 cap PO BID [facility] Last Admin: 03/27/20 09:07 Dose: 1 cap Documented by: Levothyroxine Sodium (Synthroid) 50 mcg PO QAMAC [facility] Last Admin: 03/27/20 07:04 Dose: 50 mcg Documented by: Losartan Potassium (Cozaar) 50 mg PO DAILY [facility] Last Admin: 03/27/20 09:08 Dose: 50 mg Documented by: Magnesium Hydroxide (Milk Of Magnesia) 30 ml PO BIDP PRN PRN Reason: Constipation Methocarbamol (Robaxin) 750 mg PO Q6HP PRN PRN Reason: Muscle Spasm Morphine Sulfate (Morphine) 0 mg IV Q1HP PRN; Protocol PRN Reason: Per Pain Protocol Omeprazole (Prilosec) 20 mg PO ACB [facility] Last Admin: 03/27/20 07:04 Dose: 20 mg Documented by: Fluticasone Furoate- Vilanterol [Breo Ellipta] Inhaler 1 dose INH Q24H [facility] Last Admin: 03/27/20 09:09 Dose: Not Given Documented by: Polyethylene Glycol (Miralax) 17 gm PO DAILYP PRN PRN Reason: Constipation Potassium Chloride (Potassium Chloride) 20 meq PO BIDCC PRN PRN Reason: K <3.6 Pramipexole Dihydrochloride (Mirapex) 0.75 mg PO TID [facility] Last Admin: 03/27/20 09:07 Dose: 0.75 mg Documented by: Quetiapine Fumarate (Seroquel) 450 mg PO QPM [facility] Last Admin: 03/26/20 20:58 Dose: 450 mg Documented by: Senna (Senokot) 2 tab PO HS [facility] Last Admin: 03/26/20 20:57 Dose: 2 tab Documented by: Sodium Biphosphate/Sodium Phosphate (Fleets Adult) 1 dose [place] Q3-4DAYS PRN PRN Reason: Constipation Sodium Chloride (Saline Flush) 10 ml IV Q8 [facility] Last Admin: 03/27/20 09:09 Dose: 10 ml Documented by: Sodium Chloride (Saline Flush) 10 ml IV UD PRN PRN Reason: FLUSH Sodium Chloride (Saline Flush) 10 ml IV Q12 [facility] Last Admin: 03/27/20 09:48 Dose: Not Given Documented by: Throat Lozenges (Cepacol) 1 lozenge PO PRN PRN PRN Reason: Sore Throat Tramadol HCl (Ultram) 50 mg PO DAILYP PRN; Protocol PRN Reason: Pain Last Admin: 03/27/20 06:53 Dose: 50 mg Documented by: Trazodone HCl (Desyrel) 25 mg PO QDAY [facility] Last Admin: 03/27/20 09:08 Dose: 25 mg Documented by: Vancomycin HCl (Vancomycin Per Pharmacy) 1 order IV UD [facility]; Protocol Venlafaxine HCl (Effexor) 75 mg PO QDAY [facility] Last Admin: 03/27/20 09:07 Dose: 75 mg Documented by: Vitamin B Complex (Vitamin B Complex) 1 cap PO DAILY [facility] Last Admin: 03/27/20 09:08 Dose: 1 cap Documented by: A/P Narrative A/P Narrative: * Right hip septic arthritis-status post incision drainage by orthopedics. Postop day 2. Cultures negative so far. On empiric vancomycin/Rocephin. PICC line placement today. Hospitalist consult for management of medical issues * History of anemia -hemoglobin stable at 10. * History of hypertension stable on home dose losartan * Hypothyroidism continue home dose thyroxine * History of bipolar disorder stable on home dose quetiapine * Restless leg syndrome continue pramipexole * Anxiety disorder stable on home dose venlafaxine/trazodone/bupropion * GERD continue PPI * Full code * Prophylaxis heparin to start in 24 hours Plan * Continue vancomycin/Rocephin * PICC line placement * Pre-existing medical condition management as above * PT OT nutrition support Time Spent With Patient Time: Total time spent is greater than 50% in coordination of care (as documented) at patient's floor/unit and/or counseling patient: QUALITY VTE Deep Vein Thrombosis/Pulmonary Embolism Present on Admission: No
[2020-03-27] MEDS: VANCOMYCIN 1,000 MG in 0.9 % SODIUM CHLORIDE 250 ML IV SCH ×2 (12:28→13:01)
--- NOTE | 2020-03-27 12:44 | XRay Report ---
CLINICAL INFORMATION: PICC PLACEMENT COMPARISON: 02/20/2020 FINDINGS: Left PICC line tip is distal overlying the infrahepatic IVC. Nurse instructed to withdraw the line 10 cm. Moderate hiatal hernia is stable. Moderate cardiomegaly unchanged. Mediastinum and pulmonary vessels are otherwise, normal. Bibasilar infiltrates, seen on previous study, have almost totally resolved. COPD changes appreciated. No effusions IMPRESSION: Malpositioned PICC line. The nurses were instructed to withdraw the line 10 cm. Interval resolution of bibasilar infiltrates Moderate hiatal hernia and moderate cardiomegaly stable Interpreted and Authenticated by: Edwardo Renee 03/27/20
[2020-03-27] MEDS: SENNOSIDES 1 TABLET PO SCH ×2 (20:43→20:51)
[2020-03-27] MEDS: QUEtiapine 100 MG TABLET PO SCH (20:43)
[2020-03-28] MEDS: 0.9 % SODIUM CHLORIDE 10 ML SYRINGE IV SCH ×2 (06:43→09:18)
[2020-03-28] MEDS: LEVOTHYROXINE 50 MCG TABLET PO SCH (07:30)
[2020-03-28] MEDS: OMEPRAZOLE 20 MG CAPSULE PO SCH (07:30)
[2020-03-28] MEDS: traZODone HCL 50 MG TABLET PO SCH (08:59)
[2020-03-28] MEDS: LACTOBACILLUS 1 CAPSULE PO SCH (09:00)
[2020-03-28] MEDS: PRAMIPEXOLE 0.25 MG TABLET PO SCH (09:00)
[2020-03-28] MEDS: LOSARTAN 50 MG TABLET PO SCH (09:00)
[2020-03-28] MEDS: VITAMIN B COMPLEX 1 CAPSULE PO SCH (09:00)
[2020-03-28] MEDS: EZETIMIBE 10 MG TABLET PO SCH (09:00)
[2020-03-28] MEDS: VENLAFAXINE 75 MG TABLET PO SCH (09:00)
[2020-03-28] MEDS: FERROUS SULFATE 325 MG TABLET PO SCH (09:01)
[2020-03-28] MEDS: DOCUSATE SODIUM 100 MG CAPSULE PO SCH (09:01)
[2020-03-28] MEDS: FUROSEMIDE 40 MG TABLET PO SCH (09:02)
[2020-03-28] MEDS: Fluticasone Furoate-Vilanterol [Breo Ellipta] Inhaler INH SCH (09:02)
[2020-03-28] MEDS: cefTRIAXone 2 GM in DEXTROSE 5% IN WATER 50 ML IV SCH (09:13)
[2020-03-28] MEDS: buPROPion 100 MG TABLET PO SCH (09:13)
[2020-03-28 09:46] LABS: Eosinophils % (Manual) 2 % (0-7); Hematocrit 27.6 % (36.0-48.0); Hemoglobin 8.9 g/dL (12.0-15.0); Hypochromasia 1+ (None Seen); Lymphocytes % 20 % (15-49); Mean Cell Volume 93.2 fL (80.0-100.0); Mean Corpuscular HGB Conc 32.2 g/dL (31.0-36.0); Mean Platelet Volume 11.3 fL (7.4-10.4); Monocytes % (Manual) 6 % (1-12); Platelet Count 380 K/mcL (140-440); Platelet Estimate NORMAL (Normal); RBC 2.96 M/mcL (4.00-5.20); RBC Morphology ABNORMAL (Normal); Segmented Neutrophils % 72 % (38-78); WBC 7.3 K/mcL (4.5-11.0)
[2020-03-28] MEDS: VANCOMYCIN 1,000 MG in 0.9 % SODIUM CHLORIDE 250 ML IV SCH (09:51)
[2020-03-28 10:29] LABS: ALT/SGPT 9 U/L (<40); AST/SGOT 25 U/L (<32); Albumin 3.4 gm/dL (3.2-5.2); Alkaline Phosphatase 93 U/L (39-117); Bilirubin,Direct < 0.2 mg/dL (<0.3); Bilirubin,Total 0.7 mg/dL (0.1-1.0); Blood Urea Nitrogen 16 mg/dL (8-23); Calcium 10.7 mg/dL (8.6-10.4); Carbon Dioxide 23 mmol/L (22-30); Chloride 95 mmol/L (96-108); Globulin 3.5 gm/dL (2.2-3.7); Glomerular Filtration Rate 43; Glucose 112 mg/dL (70-105); Lactate Dehydrogenase 295 U/L (135-225); Phosphorous 4.4 mg/dL (2.5-4.5); Triglycerides 116 mg/dL (<150); Uric Acid 7.8 mg/dL (2.5-8.0)
--- NOTE | 2020-03-28 12:57 | Discharge Summary ---
Discharge Provider Provider Patient information: Note initiated : 03/28/20 at 12:51 pm Service Date, if different from initiated Date: [] Patient: Jazmin Hooker 79 y/o F admitted on 03/25/20 for Right Hip Irrigation and Debridement with Wound. Chief Complaint: Discharge diagnosis * Right hip suspected septic arthritis versus infected seroma-status post incision drainage by orthopedics. Postop day 3. I&D cultures negative so far. Case discussed with infectious specialist. Low probability actual joint infection and hence reasonable to treat with on Rocephin for additional 2 weeks. ID recommends close follow-up after discharge with orthopedics. Also advises to schedule appointment with ID clinic if evidence of worsening joint swelling/infection noted. History of anemia -hemoglobin stable at 10. History of hypertension stable on home dose losartan Hypothyroidism continue home dose thyroxine History of bipolar disorder stable on home dose quetiapine Restless leg syndrome continue pramipexole Anxiety disorder stable on home dose venlafaxine/trazodone/bupropion GERD managed on PPI Brief hospital course Ms. Hooker is a 79-year-old female with a history of bipolar disorder/HTN/hypothyroidism/anxiety disorder who was recently admitted to [facility] in January following right hip fracture and underwent hemiarthroplasty. She was hospitalized within a week with multifocal pneumonia/hypoxic respiratory failure and was discharged home following improvement and resolution of pneumonia with home health services. She was evaluated by orthopedics due to right hip swelling and septic arthritis was suspected, she underwent operative intervention with incision drainage today. Postoperatively hospitalist service was consulted by orthopedics for management of medical issues and antibiotic selection. Intraoperative cultures were sent. Patient was seen immediately postoperative phase. Patient is accompanied with her Leeroy. She is able to answer most questions. She endorses that over the last few days she has noted increasing swelling pain difficulty ambulation around the right hip. The swelling felt like a tennis ball and subsequently was reviewed with Dr. Birmingham's office. She was started on outpatient oral antibiotics and underwent incision drainage at [facility] today. 03/26-patient is status post day 1 right hip irrigation debridement and drainage. Cultures pending so far. On vancomycin/Rocephin. Patient seen in room, no active concerns. Tolerating diet. at bedside. Complains of heartburn. Usually usually gets relief with Pepcid at home. No acute overnight events or concerns per staff. 03/27-patient doing well. No overnight events. No concerns per staff. On antibiotic coverage. PICC line placement today. Wound cultures negative so far. Will likely discharge in 24 hours and outpatient antibiotics. 03/28-patient doing well. No overnight events. Cultures negative so far. Case discussed with orthopedics and ID. Patient initially on vancomycin Rocephin which has been de-escalate Rocephin to be continued for additional 10 days. PICC line is in place. Per orthopedics low probability actual joint involvement and likely a seroma. ID recommends continuing Rocephin for infected seroma and close follow-up by orthopedics as outpatient. Date of admission: 03/25/20 17:14 Discharge date: 03/28/20 Primary care physician: Keila Quintero Consults: 03/25/20 17:14 Consult to Physician [CONS] Routine Comment: Consulting Provider: Yoav Haynes Reason For Exam: Physician to Consult Discharge Meds Discharge Medications Home Medications ezetimibe 10 mg tablet 10 mg PO DAILY #90 tab 05/07/19 [Rx Confirmed 03/25/20 Last Taken 03/24/20] biotin 10,000 mcg capsule 10,000 mcg PO QDAY 08/23/19 [History Confirmed 03/25/20 Last Taken 02/24/20] ferrous sulfate 325 mg (65 mg iron) tablet 325 mg PO QDAY tab 09/13/19 [History Confirmed 03/25/20 Last Taken 03/24/20] pramipexole 1 mg tablet 0.75 mg PO TID 09/13/19 [History Confirmed 03/25/20 Last Taken 03/24/20] quetiapine 400 mg tablet 450 mg PO QPM tab 09/13/19 [History Confirmed 03/25/20 Last Taken 03/24/20] vitamin B complex 1 tab PO QDAY 09/13/19 [History Confirmed 03/25/20 Last Taken 03/24/20] levothyroxine 50 mcg tablet 50 mcg PO QDAY #90 tab 12/18/19 [Rx Confirmed 03/25/20 Last Taken 03/24/20] losartan 50 mg tablet See Rx Instructions .ROUTE .COMPLEX #90 tablet 01/04/20 [Rx Confirmed 03/25/20 Last Taken 03/24/20] methocarbamol 750 mg PO QID PRN #40 tab 02/10/20 [Rx Confirmed 03/25/20 Last Taken 03/22/20] omeprazole 20 mg PO QDAY 02/13/20 [History Confirmed 03/25/20 Last Taken 03/24/20] Lactobacillus acidophilus 2,000 mmu cells PO BID #40 cap 02/17/20 [Rx Confirmed 03/25/20 Last Taken 03/24/20] albuterol sulfate 2 puff INHALATION Q6H PRN #8.5 g 02/17/20 [Rx Confirmed 03/25/20 Last Taken 03/24/20] fluticasone furoate 200 mcg-vilanterol 25 mcg/dose inhalation powder 1 inh INHALATION Q24H #60 each 02/20/20 [Rx Confirmed 03/25/20 Last Taken 03/23/20] furosemide 40 mg tablet 40 mg PO QAM #30 tab 02/20/20 [Rx Confirmed 03/25/20 Last Taken 03/24/20] bupropion HCl 100 mg tablet 100 mg PO QDAY tab 02/28/20 [History Confirmed 03/25/20 Last Taken 03/24/20] tramadol 50 mg tablet 50 mg PO QDAY 02/28/20 [History Confirmed 03/25/20 Last Taken 03/24/20] trazodone 50 mg tablet 25 mg PO QDAY 02/28/20 [History Confirmed 03/25/20 Last Taken 03/24/20] venlafaxine 75 mg tablet 75 mg PO QDAY 02/28/20 [History Confirmed 03/25/20 Last Taken 03/24/20] hydrocodone 7.5 mg-acetaminophen 325 mg tablet 1 - 2 tab PO Q4HP PRN #50 tab 03/21/20 [Rx Confirmed 03/25/20 Last Taken 03/22/20] ceftriaxone 2 gm IV Q24H 10 Days #20 each 03/27/20 [Rx Last Taken Unknown] tramadol 50 mg PO DAILYP PRN #40 tab 03/27/20 [Rx Last Taken Unknown] COURSE Hospital Course Hospital course: . Discharge diagnosis: . Time Spent with Patient Time attestation: Total time spent providing and/or coordinating discharge services: EXAM Constitutional Vitals: Temp Pulse Resp BP Pulse Ox 98.1 F 100 H 20 113/63 96 03/28/20 08:00 03/28/20 11:30 03/28/20 11:30 03/28/20 08:00 03/28/20 11:30 Discharge Data Data Completed and Pending Labs on day of discharge: Labs from last 24 hours 03/28/20 03/28/20 05:44 05:44 WBC 7.3 RBC 2.96 L Hgb 8.9 L Hct 27.6 L MCV 93.2 MCH 30.1 MCHC 32.2 RDW 22.0 H Plt Count 380 MPV 11.3 H Seg Neutrophils % 72 Band Neutrophils % Pending Lymphocytes % 20 Monocytes % (Manual) 6 Eosinophils % (Manual) 2 Platelet Estimate Normal RBC Morphology Abnormal A Hypochromasia 1+ A Sodium 134 Potassium 3.5 Chloride 95 L Carbon Dioxide 23 Anion Gap 16.0 BUN 16 Creatinine 1.2 H GFR Calculation 43 Glucose 112 H Uric Acid 7.8 Calcium 10.7 H Phosphorus 4.4 Magnesium 1.6 Total Bilirubin 0.7 Direct Bilirubin < 0.2 GGT 10 AST 25 ALT 9 Alkaline Phosphatase 93 Lactate Dehydrogenase 295 H Total Protein 6.9 Albumin 3.4 Globulin 3.5 Albumin/Globulin Ratio 1.0 Triglycerides 116 Preliminary micro results at discharge 03/25/20 19:17 Blood Culture - Preliminary Blood 03/25/20 19:13 Blood Culture - Preliminary Blood 03/25/20 16:50 Gram Stain - Preliminary Hip - Right Anaerobic Culture - Preliminary 03/25/20 19:32 Gram Stain - Preliminary Hip - Right Tissue Culture - Preliminary Discharge Plan Patient/Caregiver Discharge Instructions Activity: resume usual activities as tolerated Diet: Regular Diet Instructions: Tramadol (By mouth), Ceftriaxone (By injection), Incision and Drainage (DC) Activity Restrictions/Additional Instructions: Discharge Instructions: Do the exercises at home that physical therapy gave you. Weight bearing as tolerated. You may start showering on post op day #2. After showering replace dressing with a dry gauze 4X4 and secure with tape. To avoid constipation while taking any narcotic pain medication, take an over the counter stool softener/laxative. Use ice packs as directed, on for 20 minutes at a time, throughout the day. Ice and elevation will help with pain and swelling. If you have any questions or concerns call your orthopedic surgeon before going to the emergency room. [facility] has a felt carbonizer physician 24 hours per day/7 days per week and can be reached at [phone]. Call for fevers above 100.5 or pain not controlled by medication. Please fax a copy of microbiology results including wound culture /discharge summary and operative note to infectious disease clinic Dr. Treadwell's office Your prescriptions are with your discharge information. Some medications were electronically transmitted to your pharmacy of choice. This discharge packet is provided to you to help keep you informed about your care. We want to ensure you get everything you need when you go home. You will also be receiving a call from us in a few days to follow up with you and see how you are doing since your discharge. This gives us a chance to listen to any concerns you maybe experiencing since you were discharged or any additional needs you may have, as well as providing us feedback on your care experience. We strive to always provide excellent care and thank you for your feedback and for choosing [facility]. Prescriptions: New ceftriaxone 2 gram Recon Soln 2 gm IV Q24H 10 Days Qty: 20 RF: 0 tramadol 50 mg Tablet 50 mg PO DAILYP PRN (Reason: Pain) Qty: 40 RF: 0 Continued biotin 10,000 mcg capsule 10,000 mcg PO QDAY RF: 0 vitamin B complex [B Complex-Vitamin B12] Tablet 1 tab PO QDAY RF: 0 furosemide [Lasix] 40 mg tablet 40 mg PO QAM Qty: 30 RF: 0 Breo Ellipta 200-25 mcg/dose blister with device 1 inh INHALATION Q24H Qty: 60 RF: 3 venlafaxine 75 mg tablet 75 mg PO QDAY RF: 0 tramadol 50 mg tablet 50 mg PO QDAY RF: 0 bupropion HCl 100 mg tablet 100 mg PO QDAY RF: 0 trazodone 50 mg tablet 25 mg PO QDAY RF: 0 hydrocodone-acetaminophen 7.5-325 mg tablet 1 - 2 tab PO Q4HP PRN (Reason: Per Pain Protocol) Qty: 50 RF: 0 ezetimibe 10 mg tablet 10 mg PO DAILY Qty: 90 RF: 2 levothyroxine 50 mcg tablet 50 mcg PO QDAY Qty: 90 RF: 0 losartan 50 mg tablet See Rx Instructions .ROUTE .COMPLEX Qty: 90 RF: 0 quetiapine [Seroquel] 400 mg tablet 450 mg PO QPM RF: 0 ferrous sulfate 325 mg (65 mg iron) tablet 325 mg PO QDAY RF: 0 pramipexole 1 mg tablet 0.75 mg PO TID RF: 0 methocarbamol 750 mg Tablet 750 mg PO QID PRN (Reason: Pain) Qty: 40 RF: 0 omeprazole 40 mg capsule,delayed release(DR/EC) 20 mg PO QDAY RF: 0 Lactobacillus acidophilus Capsule 2,000 mmu cells PO BID Qty: 40 RF: 0 albuterol sulfate 90 mcg/actuation HFA aerosol inhaler 2 puff INHALATION Q6H PRN (Reason: shortness of breath or wheezing) Qty: 8.5 RF: 0 Follow Up Plan Follow up with: Davina Samson PA-C [Physician Trimmer Loader] - 04/08/20 9:10 am Patient Disposition: Home, Self-Care Rehab Potential: Fair Overall status at discharge: patient is progressing back to baseline Discharge Orders: Discharge Order (Routine); Ordered 03/28/20 Ordered By: Yoav JAMES VTE Deep Vein Thrombosis/Pulmonary Embolism Present on Admission: No
== END 2020-03-28 14:05 | disposition home or self-care (01) | DRG 863 ==
LOC: SUR 13:24 → MEDSUR 13:25
PROVIDERS: ADMIT Internal Medicine; ATTEND Internal Medicine